=== PATIENT | female | born 1940 | race Caucasian/White ===

== ENCOUNTER → 2017-10-07 13:22 | Outpatient (CLI) | payer MEDICARE, SELFPAY ==
[2017-09-28 09:28] VITALS: BP 120/83; BMI 35.5
--- NOTE | 2017-10-07 13:25 | CT_ITS ---
STUDY: CT ABDOMEN AND PELVIS WITH CONTRAST REASON FOR EXAM: Female, 76 years old. Ovarian cancer follow up. Prior AYLA/BSO, appendectomy, cholecystectomy, Power Port. Prior chemotherapy. RADIATION DOSAGE (If Supplied By Facility): CTDIvol = ( 12.19 ) mGy, DLP = ( 502.58 ) mGycm TECHNIQUE: Transaxial images were obtained from the dome of the diaphragm to the symphysis pubis with oral contrast. 100mL ml of Isovue 300 contrast was administered. Sagittal and coronal images were reconstructed. Individualized dose optimization techniques were used for this CT. COMPARISON: August 05, 2017 FINDINGS: There are atherosclerotic calcifications of visualized coronary arteries. The visualized portions of the heart are within normal limits. Normal liver. There is non-visualization of the gallbladder, which may be secondary to either contraction or a prior cholecystectomy. Normal spleen. Normal pancreas. Normal bilateral adrenal glands. Stable hypodensity of the inferior right kidney. Normal left kidney. Normal visualized stomach. Normal small intestine. There are multiple colonic diverticula consistent with diverticulosis. There is non-visualization of the appendix. There are calcifications of the abdominal aorta and vascular structures. This is consistent for atherosclerotic disease. There is no abdominal aortic aneurysm. Normal inferior vena cava. Subcentimeter mesenteric lymph nodes. Normal urinary bladder. There is absence of the uterus consistent with a prior hysterectomy. Normal abdominal wall. There are degenerative changes of the osseous structures. CT/Abdomen/Pelvis WITH Contrast IMPRESSION: There are no acute findings. There are multiple diverticuli of the colon. There is diverticulosis but no radiographic signs for diverticulitis. Hysterectomy Cholecystectomy Stable right renal cyst. Other findings as above. Electronically Signed: Jasper Phoenix MD at 18:15 EST , Service support ,
--- NOTE | 2017-10-07 13:25 | CT_ITS ---
STUDY: CT CHEST WITHOUT CONTRAST REASON FOR EXAM: Female, 76 years old. Ovarian cancer RADIATION DOSAGE (If Supplied By Facility): CTDIvol = ( 12.19 ) mGy, DLP = ( 502.58 ) mGycm TECHNIQUE: Transaxial imaging was performed without the administration of intravenous contrast material. Individualized dose optimization techniques were used for this CT. COMPARISON: PT Body May 17 2017 1:10pm FINDINGS: There is no pneumothorax. The lungs are normal. There is no demonstrated pleural abnormality. There is a right Port-A-Cath and/or Mediport in place. The tip is in the superior vena cava. There are degenerative changes of the shoulders. There is a right 4.1 mm upper lobe nodule. Series 2 image 31. This appears stable. There are calcifications of the coronary arteries. Normal mediastinum. Normal hilar regions. Normal pulmonary arteries. There is atherosclerotic calcification of the aortic arch with tortuosity and elongation of the aortic arch and descending thoracic aorta. There are multi-level degenerative changes of the thoracic spine. There is no demonstrated abnormality of the visualized upper abdomen. CT/Chest WITH Contrast IMPRESSION: Stable right upper lobe nodule. There are no new findings. Electronically Signed: Jasper Phoenix MD at 17:04 EST , Service support ,
== END ==
PROVIDERS: Family Provider Family Medicine; PCP Family Medicine; Visit Provider Nurse Practitioner Family
DX: C78.6 Secondary malignant neoplasm of retroperitoneum and peritoneum (principal); C80.1 Malignant (primary) neoplasm, unspecified
CPT/HCPCS: 71260; 74177; Q9967

== ENCOUNTER → 2018-01-10 10:04 | Outpatient (CLI) | payer MEDICARE, SELFPAY ==
--- NOTE | 2018-01-10 09:00 | PET_ITS ---
EXAMINATION: FDG PET CT INDICATIONS: A 77-year-old female with reported history of ovarian carcinoma presenting for restaging examination. COMPARISON EXAMINATION: CT of the chest, abdomen and pelvis reports dated 10/07/17, prior FDG PET study dated 05/17/17. NON-INDEX LESION SIZE SUV INTERPRETATION PERSISTENT: Bilateral thoracic corrie-hilum 1.8 (max) compared to 1.9, 05/17/17 Quantitative criteria for viable neoplasm are not fulfilled, no definitive interval change TECHNIQUE: Following the intravenous administration of 15 mCi of F-18 deoxyglucose, multiplanar image acquisitions of the neck, chest, abdomen and pelvis to level of mid thigh, obtained at one hour post radiopharmaceutical administration contemporaneously interpreted with the current CT of the neck, chest, abdomen and pelvis to level of mid thigh, dated 01/10/[address] of the chest, abdomen and pelvis reports dated 10/07/17, prior FDG PET study dated 05/17/17 reveal: FINDINGS: 1. Mild increased glucose metabolism is redefined in the bilateral thoracic perihilum generating a calculated maximum standard uptake value of 1.8 compared to 1.9 defined on the FDG PET study dated 05/17/17 2. Normal physiologic distribution of the radiopharmaceutical is apparent in the hepatic (3.4/2.4) and splenic parenchyma, both renal units, bladder and visualized intestinal tract. There is uniform distribution of the radiopharmaceutical concentration compared on the cerebellar hemispheres and cerebral cortex. Diffuse intestinal tract activity is noted throughout all four quadrants of the abdominal-pelvic retroperitoneum, mesentery consistent with normal physiologic distribution of the radiopharmaceutical. The previously identified hypermetabolic focus noted in the left upper pelvic mesentery defined on the FDG PET study dated 05/17/17 is not apparent on the current examination. Pertinent CT findings are as follows. CHEST: Alct-P-Orfm-MediPort placement is noted. Atherosclerotic calcification is defined in the thoracic aorta without evidence of dilatation, aneurysm formation. Coronary arterial calcification is observed. Right-left axillary soft tissue densities with fatty hilus formation are non-glucose avid. There are no parenchymal densities-nodules noted in the right-left hemithorax manifesting quantitatively significant increased glucose metabolism. ABDOMEN AND PELVIS: Atherosclerotic calcification is defined in the abdominal aorta without evidence of dilatation, aneurysm formation. Pelvic arterial calcification is observed. A small fat-containing inguinal hernia is noted. The gallbladder appears surgically absent. Right-left inguinal soft tissue densities are ametabolic. The uterus is not identified. SKELETAL: Degenerative changes defined in the cervical, thoracic and lumbar spine demonstrate no evidence for glucose hypermetabolism. Diffuse demineralization is noted throughout the axial skeletal structures. PET/PET/CT Tumor Base -Thigh Subs IMPRESSION: 1. NEGATIVE EXAMINATION. There is no definitive quantitative scintigraphic evidence of recurrent-metastatic viable neoplasm. 2. There is interim metabolic resolution of the previously identified upper pelvic mesenteric hypermetabolic focus. 3. Persistent increased glucose concentration noted in the bilateral thoracic perihilum does not fulfill quantitative criteria for viable neoplasm. (Charli et al, Journal of Clinical Oncology 16:2142, 1998). 4. Overall, compared to the prior FDG PET study dated 05/17/17, there is current absence of defined viable neoplastic disease with an apparent interim quantitative complete metabolic response relating to the prior defined pelvic mesenteric hypermetabolic focus. Electronic Signature Edwar Owens D.O. Electronically Signed: Edwar Owens DO at 23:21 EDT Tel , Service support ,
== END ==
PROVIDERS: Family Provider Family Medicine; PCP Family Medicine; Visit Provider Nurse Practitioner Family
DX: C78.6 Secondary malignant neoplasm of retroperitoneum and peritoneum (principal); C56.1 Malignant neoplasm of right ovary
CPT/HCPCS: 78815; A9552; A4216

== ENCOUNTER → 2018-06-07 12:46 | Outpatient (CLI) | payer MEDICARE, SELFPAY ==
--- NOTE | 2018-06-07 12:48 | CT_ITS ---
STUDY: CT ABDOMEN AND PELVIS WITH CONTRAST REASON FOR EXAM: Female, 77 years old. Ovarian cancer. RADIATION DOSAGE (If Supplied By Facility): CTDIvol = ( 22 ) mGy, DLP = ( 1105 ) mGycm TECHNIQUE: Transaxial images were obtained from the dome of the diaphragm to the symphysis pubis without oral contrast. 100 ml of Isovue 300 contrast was administered. Sagittal and coronal images were reconstructed. Individualized dose optimization techniques were used for this CT. COMPARISON: PET/CT dated 01/10/2018. CT dated 10/07/2017. FINDINGS: The visualized lung bases are clear. The visualized portions of the heart and pericardium are within normal limits. The patient is status post cholecystectomy. The liver is within normal limits. There are no suspicious hepatic lesions. The spleen is normal in size. The pancreas is within normal limits. The adrenal glands are within normal limits. There are no renal or ureteral stones. There is no hydronephrosis. There are stable cysts in the right kidney. There are no left renal lesions. Normal visualized stomach. There is no bowel obstruction or inflammation. The appendix is not visualized, but there are no findings to suggest acute appendicitis. The aorta is normal in caliber. There is no abdominal or pelvic free air, free fluid, fluid collection or lymphadenopathy. There are stable postsurgical changes from a prior hysterectomy and bilateral oophorectomy. There are no destructive osseous lesions. CT/Abdomen/Pelvis WITH Contrast IMPRESSION: Stable postsurgical changes from a prior hysterectomy and bilateral oophorectomy. No evidence of metastatic or recurrent disease in the abdomen or pelvis. Electronically Signed: Guerrero Noriega, at 19:23 EDT Tel , Service support ,
== END ==
PROVIDERS: Family Provider Nurse Practitioner Family; PCP Nurse Practitioner Family; Referring Provider Internal Medicine Medical Oncology; Visit Provider Internal Medicine Medical Oncology
DX: C56.1 Malignant neoplasm of right ovary (principal)
CPT/HCPCS: 74177; Q9967; A4216

== ENCOUNTER → 2018-09-02 07:38 | Outpatient (CLI) | payer MEDICARE, SELFPAY ==
[2018-07-07 14:56] VITALS: BMI 34.8
[2018-08-30 13:49] VITALS: BMI 35.3
--- NOTE | 2018-09-02 07:40 | CT_ITS ---
STUDY: CT ABDOMEN AND PELVIS WITH CONTRAST REASON FOR EXAM: Female, 77 years old. Elevated C1 levels, history of ovarian cancer with chemotherapy, surgery, AYLA, BSO, gallbladder, appendectomy, heart stents RADIATION DOSAGE (If Supplied By Facility): CTDIvol = ( 17.29 ) mGy, DLP = ( 1718.95 ) mGycm TECHNIQUE: Transaxial 3.75 mm images were obtained from the dome of the diaphragm to the symphysis pubis with oral contrast. 100 ml of Isovue 300 contrast was administered. Sagittal and coronal images were reconstructed. Individualized dose optimization techniques were used for this CT. COMPARISON: PET scan 07/04/2018. CT abdomen and pelvis 06/07/2018. FINDINGS: The visualized lung bases are unremarkable. There is coronary artery calcification. Normal liver. There are surgical clips in the gallbladder fossa consistent with a prior cholecystectomy. Normal spleen. Normal pancreas. Normal bilateral adrenal glands. Stable right renal cysts. Normal left kidney. There is a stable small hiatal hernia. Normal small intestine. Decompressed mid transverse colon to rectum with limited wall assessment due to lack off oral contrast and distention. There are a few stable sigmoid colonic diverticula consistent with diverticulosis. The appendix is not visualized . There is diffuse atherosclerotic calcification of the abdominal aorta, without a demonstrated aneurysm. Normal inferior vena cava. Normal retroperitoneum. Stable mild right ovarian vein insufficiency. Decompressed urinary bladder. Status post hysterectomy and oophorectomy Rectus muscle diastases is stable containing noncompromised small bowel. There are no destructive osseous lesions. CT/Abdomen/Pelvis WITH Contrast IMPRESSION: There is no acute abdomen and pelvic pathology. Stable postsurgical and nonacute changes as above. No evidence of metastatic disease. Electronically Signed: Maude Marquez MD at 6:59 EST , Service support ,
--- NOTE | 2018-09-02 07:40 | CT_ITS ---
STUDY: CT CHEST WITH CONTRAST REASON FOR EXAM: Female, 77 years old. Elevated C1 levels, history of ovarian cancer with chemotherapy, surgery, AYLA, BSO, gallbladder, appendectomy, heart stents RADIATION DOSAGE (If Supplied By Facility): CTDIvol = ( 17.29 ) mGy, DLP = ( 1718.95 ) mGycm TECHNIQUE: Transaxial 2.5 mm was performed following intravenous administration of 100 ml of Isovue 300 contrast material. Multiplanar coronal and sagittal images were reformatted. Individualized dose optimization techniques were used for this CT. COMPARISON: PET scan 07/04/2018. CT chest 05/02/2017. CT chest 03/03/2017. FINDINGS: Right internal jugular venous access port with catheter tip in the superior vena cava. There is an irregular nodular density in the right upper lobe of 0.59 cm image 29 series 6, previously measuring 0.61 cm. Ovoid nodular density in the right middle lobe 0.64 cm image 57 series 6 previously measured 0.62 cm. There are vague groundglass nodules in the peripheral right upper lobe and right lower lobe superior segment which are stable. Previous airspace disease in the right upper lobe has resolved. There is no demonstrated pleural abnormality. There are calcifications of the coronary arteries. There is a cardiac stent. There is no pericardial fluid. Normal mediastinum. Normal hilar regions. Normal enhanced pulmonary arteries. Normal aorta arch and descending thoracic aorta. There are multi-level degenerative changes of the thoracic spine and bilateral shoulder joints. There is no demonstrated abnormality of the visualized upper abdomen. CT/Chest WITH Contrast IMPRESSION: Nodular densities as outlined above are stable since 02/2017. No lung masses are other nodules detected. Previously seen right upper lobe airspace disease has resolved. No signs of acute airspace disease or metastatic disease. Electronically Signed: Maude Marquez MD at 5:03 EST , Service support ,
== END ==
PROVIDERS: Family Provider Nurse Practitioner Family; PCP Nurse Practitioner Family; Referring Provider Internal Medicine Medical Oncology; Visit Provider Internal Medicine Medical Oncology
DX: C56.9 Malignant neoplasm of unspecified ovary (principal); R97.8 Other abnormal tumor markers
CPT/HCPCS: 71260; 74177; Q9967; A4216

== ENCOUNTER → 2018-09-09 08:47 | Outpatient (CLI) | payer MEDICARE, SELFPAY ==
[2018-07-07 14:56] VITALS: BMI 34.8
[2018-08-30 13:49] VITALS: BMI 35.3
--- NOTE | 2018-09-09 08:48 | NM_ITS ---
CLINICAL: 77-year-old female with reported history of ovarian carcinoma. WHOLE BODY 99m Tc MDP RADIONUCLIDE BONE SCINTIGRAPHY COMPARISON: FDG PET/CT study report 07/04/2018, CT of the chest, abdomen and pelvis reports 09/02/2018 FINDINGS: Following the intravenous administration of 26.8 mCi of 99m Tc MDP, whole body bone images reveal: 1. Increased radiopharmaceutical concentration is defined in the mid cervical spine posteriorly on the left, right posterior and midline sacrum, right sacroiliac joint, the visualized left wrist, acromioclavicular compartments of both shoulders, sternoclavicular compartment of the right shoulder, bilateral knees, ankles bilaterally, the right midfoot. 2. The remaining skeletal structures are scintigraphically unremarkable with the bilateral renal images and urinary bladder activity identified. Calcification of the bilateral costochondral junctions is defined. 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 NM/Bone Scan Whole Body IMPRESSION: 1. The increase in radiopharmaceutical concentration identified in the cervical spine and sacrum, right sacroiliac joint, left wrist, knees and shoulders bilaterally, the right-left ankles and right midfoot is most consistent with degenerative arthritis. 2. There is no definitive typical scintigraphic evidence of diffuse axial skeletal metastatic disease on the current examination. Electronically Signed: Edwar Owens DO at 22:25 EST Tel , Service support ,
--- OUTSIDE RECORDS SUMMARY | 2018-11-13 15:51 | XMS RPT_ITS ---
:1940 Author Organization OHIP Support Name Relationship Address Phone KARISHMA ROSARIO Unavailable Unavailable + JENNIFER ALEXANDER Unavailable [address] + [place] [address] R Unavailable Unavailable Unavailable RICKY ROSARIOA Unavailable Unavailable + JENNIFER ALEXANDER Unavailable [address] + [place] [address] R Unavailable Unavailable Unavailable ABRAHAM, KARISHMA Unavailable Unavailable + JENNIFER ALEXANDER Unavailable [address] + [place] [address] R Unavailable Unavailable Unavailable ABRAHAM, KARISHMA Unavailable [address] + [place] [address] JENNIFER ALEXANDER Unavailable [address] + [place] [address] R Unavailable Unavailable Unavailable ABRAHAM, KARISHMA Unavailable [address] + [place] [address] JENNIFER ALEXANDER Unavailable [address] + [place] [address] R Unavailable Unavailable Unavailable ABRAHAM, KARISHMA Unavailable [address] + [place] [address] JENNIFER ALEXANDER Unavailable [address] + [place] [address] R Unavailable Unavailable Unavailable ABRAHAM, KARISHMA Unavailable [address] + [place] [address] JENNIFRE ALEXANDER Unavailable [address] + [place] [address] R Unavailable Unavailable Unavailable ABRAHAM, KARISHMA Unavailable [address] + [place] [address] JENNIFER ALEXANDER Unavailable [address] + [place] [address] R Unavailable Unavailable Unavailable LEPLEY, KARISHMA Unavailable [address] + [place] [address] JENNIFER ALEXANDER Unavailable [address] + [place] [address] R Unavailable Unavailable Unavailable LEPLEY, KARISHMA Unavailable [address] + [place] [address] JENNIFER ALEXANDER Unavailable [address] + [place] [address] R Unavailable Unavailable Unavailable LEPLEY, KARISHMA Unavailable [address] + [place] [address] JENNIFER ALEXANDER Unavailable [address] + [place] [address] R Unavailable Unavailable Unavailable LEPLEY, KARISHMA Unavailable [address] + [place] [address] JENNIFER ALEXANDER Unavailable [address] + [place] [address] R Unavailable Unavailable Unavailable LEPLEY, KARISHMA Unavailable [address] [phone] [place] [address] JENNIFER ALEXANDER Unavailable [address] [phone] [place] [address] R Unavailable Unavailable Unavailable LEPLEY, KARISHMA Unavailable [address] + [place] [address] JENNIFER ALEXANDER Unavailable [address] + [place] [address] R Unavailable Unavailable Unavailable LEPLEY, KARISHMA Unavailable [address] [phone] [place] [address] JENNIFER ALEXANDER Unavailable [address] [phone] [place] [address] R Unavailable Unavailable Unavailable LEPLEY, KARISHMA Unavailable [address] [phone] [place] [address] JENNIFER ALEXANDER Unavailable [address] [phone] [place] [address] R Unavailable Unavailable Unavailable LEPLEY, KARISHMA Unavailable [address] [phone] [place] [address] JENNIFER ALEXANDER Unavailable [address] [phone] [place] [address] R Unavailable Unavailable Unavailable LEPLEY, KARISHMA Unavailable [address] [phone] [place] [address] JENNIFER ALEXANDER Unavailable [address] [phone] [place] [address] R Unavailable Unavailable Unavailable LEPLEY, KARISHMA Unavailable [address] [phone] [place] [address] JENNIFER ALEXANDER Unavailable [address] [phone] [place] [address] R Unavailable Unavailable Unavailable LEPLEY, KARISHMA Unavailable [address] + [place] [address] LEPBIPIN, KARISHMA Unavailable [address] + [place] [address] ALESIA JENNIFER Unavailable [address] + [place] [address] LEPLEY, KARISHMA Unavailable [address] [phone] [place] . ALESIA JENNIFER Unavailable [address] [phone] [place] [address] R Unavailable Unavailable Unavailable LEPLEY, KARISHMA Unavailable [address] [phone] [place] . ALESIA JENNIFER Unavailable [address] [phone] [place] [address] R Unavailable Unavailable Unavailable LEPLEY, KARISHMA Unavailable [address] [phone]~330-4 [place] . ALESIALOCY Unavailable [address] [phone] [place] [address] R Unavailable Unavailable Unavailable LEPLEY, KARISHMA Unavailable [address] [phone] [place] . ALESIA JENNIFER Unavailable [address] [phone] [place] [address] R Unavailable Unavailable Unavailable Care Team Providers Name Role Phone BOO MORENO, ABEL Bland Attending Unavailable ABEL HADDAD MD Primary Care Unavailable Ilan Berg Attending Unavailable Xiao, Ned Referring Unavailable [facility] Primary Care Unavailable Prah, Ilan Consulting Unavailable Prah, Ilan Attending Unavailable Prah, Ilan Referring [facility]available Prah, Ilan Attending Unavailable Prah, Ilan Referring Unavailable Lorson, Matador Primary Care Unavailable Prah, Ilan Attending Unavailable Xiao, Ned Referring Unavailable [facility] Primary Care Unavailable Prah, Ilan Consulting Unavailable Prah, Ilan Attending Unavailable Xiao, Ned Referring Unavailable [facility] Primary Care Unavailable Patrick, Elly Attending Unavailable Boo, Abel Primary Care Unavailable Prah, Ilan Consulting Unavailable Patrick, Elly Attending Unavailable Patrick, Elly Referring Unavailable Boo, Abel Primary Care Unavailable Prah, Ilan Attending Unavailable Boo, Abel Primary Care Unavailable Prah, Ilan Consulting Unavailable Prah, Ilan Attending Unavailable Xiao, Ned Referring Unavailable Boo, Abel Primary Care Unavailable Prah, Ilan Consulting Unavailable Prah, Ilan Attending Unavailable Xiao, Ned Referring Unavailable Boo, Abel Primary Care Unavailable Prah, Ilan Consulting Unavailable Patrick, Elly Attending Unavailable Xiao, Ned Referring Unavailable [facility] Unavailable Prah, Ilan Consulting Unavailable Patrick, Elly Attending Unavailable Boo, Abel Primary Care Unavailable Patrick, Elly Attending Unavailable [facility] Unavailable Prah, Ilan Attending Unavailable Xiao, Ned Referring Unavailable Boo, Abel Primary Care Unavailable Prah, Ilan Consulting Unavailable Prah, Ilan Attending Unavailable Xiao, Ned Referring Unavailable Boo, Abel Primary Care Unavailable Prah, Ilan Consulting Unavailable Patrick, Elly Attending Unavailable Prah, Ilan Attending Unavailable Xiao, Ned Referring Unavailable Boo, Abel Primary Care Unavailable Prah, Ilan Consulting Unavailable Prah, Ilan Attending Unavailable Xiao, Ned Referring Unavailable Boo, Abel Primary Care Unavailable Prah, Ilan Consulting Unavailable Prah, Ilan Attending Unavailable Xiao, Ned Referring Unavailable Boo, Abel Primary Care Unavailable Prah, Ilan Consulting Unavailable Prah, Ilan Attending Unavailable Xiao, Ned Referring Unavailable Boo, Abel Primary Care Unavailable Prah, Ilan Consulting Unavailable Prah, Ilan Attending Unavailable Prah, Ilan Referring Unavailable Lorson, Matador Primary Care Unavailable Prah, Ilan Attending Unavailable Xiao, Ned [facility]erring [facility] Unavailable Prah, Ilan Consulting Unavailable Prah, Ilan Attending Unavailable Xiao, Ned Referring [facility] Unavailable Prah, Ilan Consulting Unavailable PROBLEMS PROBLEMS DATE TYPE CONDITION / CODE ATTENDING STATUS SOURCE 09/13/2018 Unknown C56.1 - Malignant Prah, Ilan Contreras neoplasm of right Community ovary / C56.1(ICD-10) Hospital Repository 09/13/2018 Unknown 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, 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 and Hospital peritoneum / Repository C78.6(ICD-10) 09/13/2018 Unknown C80.1 - Malignant PraIlan villavicencio (primary) neoplasm, [facility] unspecified / Hospital C80.1(ICD-10) Repository 06/26/2018 Unknown R97.1 - Elevated Prah, Ilan Contreras cancer antigen 125 Community [CA 125] / Hospital R97.1(ICD-10) Repository 04/29/2018 Unknown C79.60 - Secondary Prah, Ilan Contreras malignant neoplasm of [facility] unspecified ovary / Hospital C79.60(ICD-10) Repository 04/29/2018 Unknown R11.0 - Nausea / Prah, Ilan Contreras R11.0(ICD-10) [facility] Hospital Repository 02/03/2018 Unknown Z79.899 - Other long PrahIlan term (current) drug [facility] therapy / Hospital Z79.899(ICD-10) Repository PROCEDURES PROCEDURES No Procedure Records FoundRESULTS RESULTS ONCOLOGY VISIT REPORT Observed: 09/13/2018 Status: F Source: [place] 4:06 PM [facility] REPOS[facility] Medical Oncology [address] [place] [address] OFFICE VISIT Date of Service: 09/13/18 1416 MR#: [id number] Acct: [id number] Name: MULU ALEXANDER Rep #: [id number] : 1940 From: Ilan Berg MD Age/Sex: 77/F Location: OMD Status: Signed Subjective - Date of Service Date of Service:: 09/13/18 - Chief Complaint For Zejula therapy. - History of Present Illness Ms. Mulu Alexander is a 77-year-old woman who presented with abdominal pain. CT scan of the abdomen and pelvis on 05/26/2016 showed ascites, omental caking, bulky cervix, and an endometrial prominence suggestive of a gynecologic malignancy. Transvaginal ultrasound confirmed these findings. The patient was seen by Dr. Xiao. 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 CA125 on 07/14/2016 was 64,000. The patient had a PET CT on 07/15/2016, which showed hypermetabolic activity in the abdominopelvic mesentery, saundra hepatis and hepatic capsule with a single focus within the mid-abdominal retroperitoneum, as well as an incidental finding of pleural effusion. She received neoadjuvant chemotherapy with carboplatin and dose- dense Taxol x 3 cycles from 08/03/2016 to 09/28/2016. Underwent AYLA-BSO with debulking per Dr. Xiao on 10/20/2016, complicated by ileus. She received adjuvant Carboplatin and Dose Dense Taxol x 3 cycles from 12/08/2016 to 02/09/2017. She was seen at [facility], had a CTA scan to rule out PE on 04/14/2017 and was found a splenic mass. CA125 was 343 on 05/05/2017. CT c/a/p on 05/11/2017 was negative, PET/CT on 05/17/2017 showed solitary hypermetabolic activity in L paramedian upper pelvic area. She was seen by Dr. Xiao, chemotherapy was suggested. She started chemotherapy with Doxil 50mg/m2 on 06/22/2017. She had a CT after the 2nd cycle which showed stable disease. Developed pain and redness of the palms and mouth ulcers subsequent to cycle 2. Cycle 3 delayed by 2 weeks, administered 08/24/17 with 20% dose attenuation. CA125 on 10/12/2017 was 51. Completed 6 cycles Doxil on 11/23/17. PET/CT on 01/10/2018 showed no hypermetabolic activity. CA125 on 01/27/2018 was 38.8. She started Zejula 300mg on 01/23/2018, had general weakness with nausea so decreased it to 200mg. She had persistent nausea so Zejula was decreased to 100mg PO daily on 04/28/2018. CA125 started rising, had CT a/p done on 06/07/2018 which was negative. PET/CT on 07/04/2018 showed no hypermetabolic activities suggestive of metastatic disease. She remained on Zejula and comes for follow up after CT and bone scan. Feels better, no nausea. - Past Medical/Social History Past Medical History Past Medical History: Anxiety,Asthma,Congestive heart failure,GERD, Hypertension,Pneumonia Cancer: Ovarian cancer Past Surgical History Surgical: Cholecystectomy,Hysterectomy,Port placement Other Surgical History: cardiac stents x2 Family History Paternal Past Medical History: Heart disease,Tuberculosis Maternal Past Medical History: Diabetes mellitus,Heart disease,Hypertension Social History Social History: No changes Smoking Status Never smoker Review of Systems Constitutional:: Denies: Fever, Sweats, Weight loss, Appetite change, Chills Cardiovascular:: Denies: Chest pain, Palpitations, Dyspnea on exertion, Orthopnea, PND, Shortness of breath Respiratory: Denies: Cough, Hemoptysis, Shortness of Breath, Wheezing Gastrointestinal:: Denies: Abdominal pain, Nausea, Vomiting, Diarrhea, Constipation, Hematochezia Genitourinary: Denies: Dysuria, Hematuria, 15, Flank pain Musculoskeletal:: Denies: Back pain, Myalgia, Arthralgia Skin: Denies: Rash, Skin Changes, Wounds Neurological:: Denies: Headache, Dizziness, Visual changes, Tinnitus, Hearing loss Psychiatric: Denies: Anxiety, Depression, Homicidal Ideations, Suicidal Ideations Vital Signs Height 5 ft 4 in Weight: 93.894 kg Weight in Pounds 207.0 lbs Pulse Ox 97 - Physical Exam General: Alert, Oriented x3, No apparent distress Diagnostic Data: Diagnostic Data PET, CT Tumor Imaging 07/04/18 12:00 IMPRESSION: 1. NEGATIVE EXAMINATION. There is no definitive quantitative scintigraphic evidence of recurrent-viable neoplasm. 2. Mild increased glucose concentration newly defined in the left mid clavicle does not fulfill quantitative criteria for viable neoplasm. (Tarun et al, Clinical Nuclear Medicine 29:161, 2004). 3. Overall, compared to the prior FDG PET study report dated 01/10/18, there is current and continued absence of defined viable neoplastic disease. Electronic Signature Edwar Owens D.O. Electronically Signed: Edwar Owens DO at 22:34 EST Tel , Service support , 09/09/2018 Bone scan reviewed. NM/Bone Scan Whole Body IMPRESSION: 1. The increase in radiopharmaceutical concentration identified in the cervical spine and sacrum, right sacroiliac joint, left wrist, knees and shoulders bilaterally, the right-left ankles and right midfoot is most consistent with degenerative arthritis. 2. There is no definitive typical scintigraphic evidence of diffuse axial skeletal metastatic disease on the current examination. Electronically Signed: Edwar Owens, DO at 22:25 EST 09/02/2018 CT reviewed, stable small lung nodules, no abdominal lesions. Assessment and Plan Recurrent ovarian cancer with peritoneal metastases, finished Doxil on 11/23/2017. Started Zejula on 01/23/2018, now on 100mg because of persistent nausea. Increasing CA125, 127 on 08/29/2018. CT c/a/p and bone scan in Aug 2018 show no metastatic disease. Pt thinks the increase in CA125 is due to Zejula and so does not want to continue. Plan is to stop Zejula and do observation. RTC 4-6 wks with CA125. Medications: Prescriptions This Visit Medication Instructions Recorded Montelukast [Singulair] 10 mg PO DAILY PRN 05/05/17 Prochlorperazine Maleate 10 mg PO Q6H PRN PRN #30 tablet 06/22/17 Primary Care Provider: Abel Haddad Referring Provider: - Problem List (1) Ovarian cancer Status: Chronic Qualifiers: Laterality: unspecified laterality Qualified Code(s): C56.9 - Malignant neoplasm of unspecified ovary Code Visit Office Visits / Consults: [id number] OV L4 Est 09/13/18 1606 <Electronically signed by Ilan Berg MD> Date Ilan Berg MD Cosigner Signature: Date (if applicable) CC: BONE SCAN WHOLE Observed: 09/09/2018 Status: F Source: [place] BODY 8:48 AM [facility] REPOSITORY [facility] Imaging Services [facility] [place] [address] Bone Scan Whole Body MR#: [id number] Acct: [id number] Name: MULU ALEXANDER Rep #: [id number] : 1940 F 77 From: Edwar Owens DO PCP: RAUL Escamilla Status: REG CLI Study: Bone Scan Whole Body Date of Exam: 09/09/18 Exam# [id number] Ordering Dr: Ilan Berg MD CLINICAL: 77-year-old female with reported history of ovarian carcinoma. WHOLE BODY 99m Tc MDP RADIONUCLIDE BONE SCINTIGRAPHY COMPARISON: FDG PET/CT study report 07/04/2018, CT of the chest, abdomen and pelvis reports 09/02/2018 FINDINGS: Following the intravenous administration of 26.8 mCi of 99m Tc MDP, whole body bone images reveal: 1. Increased radiopharmaceutical concentration is defined in the mid cervical spine posteriorly on the left, right posterior and midline sacrum, right sacroiliac joint, the visualized left wrist, acromioclavicular compartments of both shoulders, sternoclavicular compartment of the right shoulder, bilateral knees, ankles bilaterally, the right midfoot. 2. The remaining skeletal structures are scintigraphically unremarkable with the bilateral renal images and urinary bladder activity identified. Calcification of the bilateral costochondral junctions is defined. 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 NM/Bone Scan Whole Body IMPRESSION: 1. The increase in radiopharmaceutical concentration identified in the cervical spine and sacrum, right sacroiliac joint, left wrist, knees and shoulders bilaterally, the right-left ankles and right midfoot is most consistent with degenerative arthritis. 2. There is no definitive typical scintigraphic evidence of diffuse axial skeletal metastatic disease on the current examination. Electronically Signed: Edwar Owens DO at 22:25 EST Tel , Service support , CC: RAUL Carranza; Ilan Berg MD [employer] Operations Engineer: Signed CANCER ANTIGEN 125 Collected: 09/09/2018 Status: F Source: [place] 8:34 AM [facility] REPOSITORY Order Comment: Reason for Laboratory Test . TYPE CODE TESTS RESULT OUT OF RANGE REFERENCE UNITS LAB L3100.5000 0.0-38.1 U/mL High CA125 125.8 2303 Result Comment: [facility] Electrochemiluminescence Immunoassay (ECLIA) Values obtained with different assay methods or kits cannot be used interchangeably. Results cannot be interpreted as absolute evidence of the presence or absence of malignant disease. Performed at: - [facility] [id number] [place] Boss: Christiano Irvin PhD, Phone: [phone] Performed By: #### L3100.5000 #### [facility] (refer to report for specific site) refer to report for address and phone number CHEST WITH CONTRAST Observed: 09/02/2018 Status: F Source: [place] 7:41 AM [facility] REPOSITORY [facility] Imaging Services [address] [place] [address] Chest WITH Contrast MR#: [id number] Acct: [id number] Name: UMLU ALEXANDER Rep #: [id number] : 1940 F 77 From: Maude Marquez MD PCP: RAUL Escamilla Status: REG CLI Study: Chest WITH Contrast Date of Exam: 09/02/18 Exam# [id number] Ordering Dr: Ilan Berg MD STUDY: CT CHEST WITH CONTRAST REASON FOR EXAM: Female, 77 years old. Elevated C1 levels, history of ovarian cancer with chemotherapy, surgery, AYLA, BSO, gallbladder, appendectomy, heart stents RADIATION DOSAGE (If Supplied By Facility): CTDIvol = ( 17.29 ) mGy, DLP = ( 1718.95 ) mGycm TECHNIQUE: Transaxial 2.5 mm was performed following intravenous administration of 100 ml of Isovue 300 contrast material. Multiplanar coronal and sagittal images were reformatted. Individualized dose optimization techniques were used for this CT. COMPARISON: PET scan 07/04/2018. CT chest 05/02/2017. CT chest 03/03/2017. FINDINGS: Right internal jugular venous access port with catheter tip in the superior vena cava. There is an irregular nodular density in the right upper lobe of 0.59 cm image 29 series 6, previously measuring 0.61 cm. Ovoid nodular density in the right middle lobe 0.64 cm image 57 series 6 previously measured 0.62 cm. There are vague groundglass nodules in the peripheral right upper lobe and right lower lobe superior segment which are stable. Previous airspace disease in the right upper lobe has resolved. There is no demonstrated pleural abnormality. There are calcifications of the coronary arteries. There is a cardiac stent. There is no pericardial fluid. Normal mediastinum. Normal hilar regions. Normal enhanced pulmonary arteries. Normal aorta arch and descending thoracic aorta. There are multi-level degenerative changes of the thoracic spine and bilateral shoulder joints. There is no demonstrated abnormality of the visualized upper abdomen. CT/Chest WITH Contrast IMPRESSION: Nodular densities as outlined above are stable since 02/2017. No lung masses are other nodules detected. Previously seen right upper lobe airspace disease has resolved. No signs of acute airspace disease or metastatic disease. Electronically Signed: Maude Marquez MD at 5:03 EST , Service support , CC: RAUL Carranza; Ilan Berg MD [employer] Operations Engineer: Signed ABDOMEN/PELVIS WITH Observed: 09/02/2018 Status: F Source: [place] CONTRAST 7:41 AM [facility] REPOS[facility]ORY [facility] Imaging Services [address] [place] [address] Abdomen/Pelvis WITH Contrast MR#: [id number] Acct: [id number] Name: MULU ALEXANDER Rep #: [id number] : 1940 F 77 From: Maude Marquez MD PCP: RAUL Escamilla Status: REG CLI Study: Abdomen/Pelvis WITH Contrast Date of Exam: 09/02/18 Exam# [id number] Ordering Dr: Ilan Berg MD STUDY: CT ABDOMEN AND PELVIS WITH CONTRAST REASON FOR EXAM: Female, 77 years old. Elevated C1 levels, history of ovarian cancer with chemotherapy, surgery, AYLA, BSO, gallbladder, appendectomy, heart stents RADIATION DOSAGE (If Supplied By Facility): CTDIvol = ( 17.29 ) mGy, DLP = ( 1718.95 ) mGycm TECHNIQUE: Transaxial 3.75 mm images were obtained from the dome of the diaphragm to the symphysis pubis with oral contrast. 100 ml of Isovue 300 contrast was administered. Sagittal and coronal images were reconstructed. Individualized dose optimization techniques were used for this CT. COMPARISON: PET scan 07/04/2018. CT abdomen and pelvis 06/07/2018. FINDINGS: The visualized lung bases are unremarkable. There is coronary artery calcification. Normal liver. There are surgical clips in the gallbladder fossa consistent with a prior cholecystectomy. Normal spleen. Normal pancreas. Normal bilateral adrenal glands. Stable right renal cysts. Normal left kidney. There is a stable small hiatal hernia. Normal small intestine. Decompressed mid transverse colon to rectum with limited wall assessment due to lack off oral contrast and distention. There are a few stable sigmoid colonic diverticula consistent with diverticulosis. The appendix is not visualized . There is diffuse atherosclerotic calcification of the abdominal aorta, without a demonstrated aneurysm. Normal inferior vena cava. Normal retroperitoneum. Stable mild right ovarian vein insufficiency. Decompressed urinary bladder. Status post hysterectomy and oophorectomy Rectus muscle diastases is stable containing noncompromised small bowel. There are no destructive osseous lesions. CT/Abdomen/Pelvis WITH Contrast IMPRESSION: There is no acute abdomen and pelvic pathology. Stable postsurgical and nonacute changes as above. No evidence of metastatic disease. Electronically Signed: Maude Marquez MD at 6:59 EST , Service support , CC: RAUL Carranza; Ilan Berg MD [employer] Operations Engineer: Signed ONCOLOGY VISIT REPORT Observed: 08/30/2018 Status: F Source: [place] 1:31 PM [facility] RE[facility] Medical Oncology [address] [place], [place] [address]d[place] [address] OFFICE VISIT Date of Service: 08/30/18 1319 MR#: [id number] Acct: [id number] Name: MULU ALEXANDER Rep #: [id number] : 1940 From: Ilan Berg MD Age/Sex: 77/F Location: OMD Status: Signed Subjective - Date of Service Date of Service:: 08/30/18 - Chief Complaint For Zejula therapy. - History of Present Illness Ms. Mulu Alexander is a 77-year-old woman who presented with abdominal pain. CT scan of the abdomen and pelvis on 05/26/2016 showed ascites, omental caking, bulky cervix, and an endometrial prominence suggestive of a gynecologic malignancy. Transvaginal ultrasound confirmed these findings. The patient was seen by Dr. Xiao. 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 CA125 on 07/14/2016 was 64,000. The patient had a PET CT on 07/15/2016, which showed hypermetabolic activity in the abdominopelvic mesentery, saundra hepatis and hepatic capsule with a single focus within the mid-abdominal retroperitoneum, as well as an incidental finding of pleural effusion. She received neoadjuvant chemotherapy with carboplatin and dose- dense Taxol x 3 cycles from 08/03/2016 to 09/28/2016. Underwent AYLA-BSO with debulking per Dr. Xiao on 10/20/2016, complicated by ileus. She received adjuvant Carboplatin and Dose Dense Taxol x 3 cycles from 12/08/2016 to 02/09/2017. She was seen at [facility], had a CTA scan to rule out PE on 04/14/2017 and was found a splenic mass. CA125 was 343 on 05/05/2017. CT c/a/p on 05/11/2017 was negative, PET/CT on 05/17/2017 showed solitary hypermetabolic activity in L paramedian upper pelvic area. She was seen by Dr. Xiao, chemotherapy was suggested. She started chemotherapy with Doxil 50mg/m2 on 06/22/2017. She had a CT after the 2nd cycle which showed stable disease. Developed pain and redness of the palms and mouth ulcers subsequent to cycle 2. Cycle 3 delayed by 2 weeks, administered 08/24/17 with 20% dose attenuation. CA125 on 10/12/2017 was 51. Completed 6 cycles Doxil on 11/23/17. PET/CT on 01/10/2018 showed no hypermetabolic activity. CA125 on 01/27/2018 was 38.8. She started Zejula 300mg on 01/23/2018, had general weakness with nausea so decreased it to 200mg. She had persistent nausea so Zejula was decreased to 100mg PO daily on 04/28/2018. CA125 started rising, had CT a/p done on 06/07/2018 which was negative. PET/CT on 07/04/2018 showed no hypermetabolic activities suggestive of metastatic disease. She remained on Zejula and comes for follow up. Feels better, no nausea. - Past Medical/Social History Past Medical History Past Medical History: Anxiety,Asthma,Congestive heart failure,GERD, Hypertension,Pneumonia Cancer: Ovarian cancer Past Surgical History Surgical: Cholecystectomy,Hysterectomy,Port placement Other Surgical History: cardiac stents x2 Family History Paternal Past Medical History: Heart disease,Tuberculosis Maternal Past Medical History: Diabetes mellitus,Heart disease,Hypertension Social History Social History: No changes Smoking Status Never smoker Review of Systems Constitutional:: Denies: Fever, Sweats, Weight loss, Appetite change, Chills Cardiovascular:: Denies: Chest pain, Palpitations, Dyspnea on exertion, Orthopnea, PND, Shortness of breath Respiratory: Denies: Cough, Hemoptysis, Shortness of Breath, Wheezing Gastrointestinal:: Denies: Abdominal pain, Nausea, Vomiting, Diarrhea, Constipation, Hematochezia Genitourinary: Denies: Dysuria, Hematuria, 15, Flank pain Musculoskeletal:: Denies: Back pain, Myalgia, Arthralgia Skin: Denies: Rash, Skin Changes, Wounds Neurological:: Denies: Headache, Dizziness, Visual changes, Tinnitus, Hearing loss Psychiatric: Denies: Anxiety, Depression, Homicidal Ideations, Suicidal Ideations Vital Signs Height 5 ft 4 in Weight: 92.079 kg Weight in Pounds 203.0 lbs Pulse Ox 99 - Physical Exam General: Alert, Oriented x3, No apparent distress HEENT: Atraumatic, PERRLA, EOMI, Normocephalic Oropharynx:: Dry mucosa Neck:: Supple, Trachea midline. Negative for: JVD, bilateral Cardiac:: Regular rate, Regular rhythm, Normal S1, Normal S2. Negative for: Murmur Lungs: Clear to auscultation, Excusion symmetrical. Negative for: Rhonchi, Wheezes Abdomen:: Bowel sounds x 4, Soft, Non-tender, Non-distended. Negative for: Hepatosplenomegaly Extremities:: Negative for: Cyanosis, Edema Neurological: Neuro grossly intact Skin:: Negative for: Lesions, Rash, Petechiae, Ecchymosis Psychiatric:: Appropriate affect, Euthymic Lymphatics:: Negative for: Cervical lymphadenopathy, Supraclavicular lymphadenopathy, Axillary lymphadenopathy Laboratory Data: Laboratory Tests Diagnostic Data: Diagnostic Data PET, CT Tumor Imaging 07/04/18 12:00 IMPRESSION: 1. NEGATIVE EXAMINATION. There is no definitive quantitative scintigraphic evidence of recurrent-viable neoplasm. 2. Mild increased glucose concentration newly defined in the left mid clavicle does not fulfill quantitative criteria for viable neoplasm. (Tarun farley al, Clinical Nuclear Medicine 29:161, 2004). 3. Overall, compared to the prior FDG PET study report dated 01/10/18, there is current and continued absence of defined viable neoplastic disease. Electronic Signature Edwar Owens D.O. Electronically Signed: Edwar Owens DO at 22:34 EST Tel , Service support , Assessment and Plan Recurrent ovarian cancer with peritoneal metastases, finished Doxil on 11/23/2017. Started Zejula on 01/23/2018, now on 100mg because of persistent nausea. Increasing CA125, 127 on 08/29/2018. Plan is to continue Zejula to 100mg PO daily. Obtain CT c/a/p and bone scan. RTC 2 wks with CA125. Medications: Prescriptions This Visit Medication Instructions Recorded Montelukast [Singulair] 10 mg PO DAILY PRN 05/05/17 Prochlorperazine Maleate 10 mg PO Q6H PRN PRN #30 tablet 06/22/17 Primary Care Provider: Abel Haddad Referring Provider: - Problem List (1) Ovarian metastasis Status: Chronic Code Visit Office Visits / Consults: [id number] OV L3 Est 08/30/18 1331 <Electronically signed by Ilan Berg MD> Date Ilan Arambulaigner Signature: Date (if applicable) CC: CBC W/DIFF, AUTOMATED Collected: 08/29/2018 Status: F Source: [facility] 2:03 PM [facility] REPOSITORY Order Comment: Reason for Laboratory Test . TYPE CODE TESTS RESULT OUT OF RANGE REFERENCE UNITS LAB L100.1000 4.4-11.0 K/mm3 Normal WBC 6.9 LAB L100.1200 4.2-5.4 M/mm3 Normal RBC 4.36 LAB L100.1300 12.0-15.0 g/dl Normal HGB 13.0 LAB L100.1400 37-47 % Normal HCT 40.1 LAB L100.1500 81-99 fL Normal MCV 92.0 LAB L100.1600 27.0-32.0 pg Normal MCH 29.8 LAB L100.1700 32-36 g/gl Normal MCHC 32.4 LAB L100.1810 11.6-14.6 % Normal RDW CV 13.3 LAB L100.1820 35.1-43.9 fl Normal RDW SD 43.9 LAB L100.1900 150-450 K/mm3 Normal PLT 178 LAB L100.2000 6.2-12.0 fl Normal MPV 11.0 LAB L100.2100 47-70 % Normal NEUT% 66.2 LAB L100.2200 19-41 % Normal LY% 23.8 LAB L100.2300 0-10 % Normal MONO% 7.3 LAB L100.2400 0-5 % Normal EO% 1.9 LAB L100.2500 0-1 % Normal BASO% 0.7 LAB L100.2550 0.0-0.9 % Normal IM GRAN % 0.100 Result Comment: IG% - Immature Granulocytes (promyelocytes, myelocytes and metamyelocytes) > 1% indicates that a LEFT SHIFT is Present. LAB L100.2620 2.0-7.7 X10 3/uL Normal Absolute Neut 4.6 LAB L100.2720 0.83-4.51 X10 3/ul Normal Absolute Lymph 1.64 Performed By: #### L100.0100 #### [facility] [address] [place], [address] COMPREHENSIVE METABOLIC Collected: 08/29/2018 Status: F Source: DIANE [facility] 2:03 PM [facility] REPOSITORY Order Comment: Reason for Laboratory Test . TYPE CODE TESTS RESULT OUT OF RANGE REFERENCE UNITS LAB L501.0100 74-106 mg/dL High GLU 142 Result Comment: Fasting Glucose result greater than or equal to 126 mg/dL suggests DIABETES MELLITUS per A.D.A. criteria. Please note revised GLUCOSE reference range effective 2017. LAB L501.1000 7-18 mg/dL Normal BUN 13 LAB L501.1100 0.55-1.02 mg/dL Normal CREAT,SERUM 0.92 Result Comment: The validity of the calculated GFR AND GFRAA in patients over 70 years has not been determined. Clinical correlation is essential. LAB L501.1110 >60 mL/min Normal EST GFR 63 Result Comment: Non- GFR Calc LAB L501.1115 >60 mL/min Normal EST GFR - AA 76 Result Comment: GFR Calc LAB L501.1255 ml/min Normal Estimated CRCL 45.62 LAB L501.1300 10-20 RATIO Normal BUN/CRE 14.1 LAB L501.1500 6.4-8. g/dL Normal 2 T PROT 6.4 LAB L501.1800 3.2-5. g/dL Normal 0 ALB 3.4 LAB L501.1950 2.2-4. g/dL Normal 2 GLOB 3.0 LAB L501.2000 0.9-2. RATIO Normal 4 A/G 1.1 LAB L501.2200 8.5-10 mg/dL Normal .1 CA 8.8 LAB L501.4100 15-37 U/L Normal AST 15 LAB L501.4305 45-117 U/L High ALK P 188 LAB L501.4405 13-56 U/L Normal ALT 24 LAB L501.4600 0.20-1 mg/dL Normal .00 T BILI 0.30 LAB L501.5300 136-14 mmol/L Normal 5 NA 139 LAB L501.5600 3.5-5. mmol/L Normal 1 K 3.9 LAB L501.5900 98-107 mmol/L Normal CL 104 LAB L501.6100 21.0-3 mmol/L Normal 2.0 CO2 28.0 LAB L501.6200 5-15 Normal GAP 7 Performed By: #### L500.4050 #### [facility] [address] [place], [address] CANCER ANTIGEN 125 Collected: 08/29/2018 Status: F Source: [facility] [place] 2:03 PM [facility] REPOSITORY Order Comment: Reason for Laboratory Test . TYPE CODE TESTS RESULT OUT OF RANGE REFERENCE UNITS LAB L3100.5000 0.0-38.1 U/mL High CA125 127.8 2303 Result Comment: [employer] ECLIA methodology Performed at: [facility] [address] [id number] [place] Boss: Christiano Irvin PhD, Phone: [phone] Performed By: #### L3100.5000 #### [facility] (refer to report for specific site) refer to report for address and phone number ONCOLOGY VISIT REPORT Observed: 07/07/2018 Status: F Source: [place] [place] 4:26 PM [facility] REPOSITORY [facility] [place] [address] OFFICE VISIT Date of Service: 07/07/18 1508 MR#: [id number] Acct: [id number] Name: MULU ALEXANDER Rep #: [id number] : 1940 From: Ilan Berg MD Age/Sex: 77/F Location: OMD Status: Signed Subjective - Date of Service Date of Service:: 07/07/18 - Chief Complaint For Zejula therapy. - History of Present Illness Ms. Mulu Alexander is a 77-year-old woman who presented with abdominal pain. CT scan of the abdomen and pelvis on 05/26/2016 showed ascites, omental caking, bulky cervix, and an endometrial prominence suggestive of a gynecologic malignancy. Transvaginal ultrasound confirmed these findings. The patient was seen by Dr. Xiao. 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 CA125 on 07/14/2016 was 64,000. The patient had a PET CT on 07/15/2016, which showed hypermetabolic activity in the abdominopelvic mesentery, saundra hepatis and hepatic capsule with a single focus within the mid-abdominal retroperitoneum, as well as an incidental finding of pleural effusion. She received neoadjuvant chemotherapy with carboplatin and dose- dense Taxol x 3 cycles from 08/03/2016 to 09/28/2016. Underwent AYLA-BSO with debulking per Dr. Xiao on 10/20/2016, complicated by ileus. She received adjuvant Carboplatin and Dose Dense Taxol x 3 cycles from 12/08/2016 to 02/09/2017. She was seen at [facility], had a CTA scan to rule out PE on 04/14/2017 and was found a splenic mass. CA125 was 343 on 05/05/2017. CT c/a/p on 05/11/2017 was negative, PET/CT on 05/17/2017 showed solitary hypermetabolic activity in L paramedian upper pelvic area. She was seen by Dr. Xiao, chemotherapy was suggested. She started chemotherapy with Doxil 50mg/m2 on 06/22/2017. She had a CT after the 2nd cycle which showed stable disease. Developed pain and redness of the palms and mouth ulcers subsequent to cycle 2. Cycle 3 delayed by 2 weeks, administered 08/24/17 with 20% dose attenuation. CA125 on 10/12/2017 was 51. Completed 6 cycles Doxil on 11/23/17. PET/CT on 01/10/2018 showed no hypermetabolic activity. CA125 on 01/27/2018 was 38.8. She started Zejula 300mg on 01/23/2018, had general weakness with nausea so decreased it to 200mg. She had persistent nausea so Zejula was decreased to 100mg PO daily on 04/28/2018. CA125 started rising, had CT a/p done on 06/07/2018 which was negative. PET/CT was ordered and comes for follow up. Feels better, no nausea. - Past Medical/Social History Past Medical History Past Medical History: Anxiety,Asthma,Congestive heart failure,GERD, Hypertension,Pneumonia Cancer: Ovarian cancer Past Surgical History Surgical: Cholecystectomy,Hysterectomy,Port placement Other Surgical History: cardiac stents x2 Family History Paternal Past Medical History: Heart disease,Tuberculosis Maternal Past Medical History: Diabetes mellitus,Heart disease,Hypertension Social History Social History: No changes Smoking Status Never smoker Vital Signs Height 5 ft 4 in Weight: 92.079 kg Weight in Pounds 203.0 lbs Pulse Ox 99 - Physical Exam General: Alert, Oriented x3, No apparent distress Laboratory Data: Laboratory Tests CA 125 Antigen 38.8 H 41.2 H 41.1 H CA 125 Antigen 54.6 H 69.3 H Diagnostic Data: Diagnostic Data PET, CT Tumor Imaging 07/04/18 12:00 IMPRESSION: 1. NEGATIVE EXAMINATION. There is no definitive quantitative scintigraphic evidence of recurrent-viable neoplasm. 2. Mild increased glucose concentration newly defined in the left mid clavicle does not fulfill quantitative criteria for viable neoplasm. (Tarun farley al, Clinical Nuclear Medicine 29:161, 2004). 3. Overall, compared to the prior FDG PET study report dated 01/10/18, there is current and continued absence of defined viable neoplastic disease. Electronic Signature Edwar Owens D.O. Electronically Signed: Edwar Owens DO at 22:34 EST Tel , Service support , Assessment and Plan Recurrent ovarian cancer with peritoneal metastases, finished Doxil on 11/23/2017. Started Zejula on 01/23/2018, now on 100mg. Increasing CA125 with negative PET/CT. Plan is to continue Zejula to 100mg PO daily. RTC 2 months with CBC/CMP/CA125. Medications: Prescriptions This Visit Medication Instructions Recorded Montelukast [Singulair] 10 mg PO DAILY PRN 05/05/17 Prochlorperazine Maleate 10 mg PO Q6H PRN PRN #30 tablet 06/22/17 Primary Care Provider: Abel Haddad Referring Provider: - Problem List (1) Ovarian metastasis Status: Chronic Code Visit Office Visits / Consults: 14566 OV L4 Est 07/07/18 1626 <Electronically signed by Ilan Berg MD> Date Ilan Berg MD Cosigner Signature: Date (if applicable) CC: PET/CT TUMOR BASE Observed: 07/04/2018 Status: F Source: DIANE -THIGH SUBS 12:05 PM [facility] REPOSITORY [facility] Imaging Services [address] [place] [address] PET/CT Tumor Base -Thigh Subs MR#: [id number] Acct: [id number] Name: MULU ALEXANDER Rep #: [id number] : 1940 F 77 From: Edwar Owens DO PCP: Mecca Murphy Status: REG RCR Study: PET/CT Tumor Base -Thigh Subs Date of Exam: 07/04/18 Exam# [id number] Ordering Dr: Ilan Berg MD EXAMINATION: FDG PET CT INDICATIONS: A 77-year-old female with reported history of ovarian carcinoma presenting for restaging examination. COMPARISON EXAMINATION: Previous FDG PET study report dated 01/10/18, CT of the abdomen and pelvis reports dated 06/07/18. NON-INDEX LESION SIZE SUV INTERPRETATION NEW: Left mid clavicle 1.5 Quantitative criteria for viable neoplasm are not fulfilled TECHNIQUE: Following the intravenous administration of 15 mCi of F-18 deoxyglucose, multiplanar image acquisitions of the neck, chest, abdomen and pelvis to level of mid thigh, obtained at one hour post radiopharmaceutical administration contemporaneously interpreted with the current CT of the neck, chest, abdomen and pelvis to level of mid thigh, dated 07/04/18 via coregistration and previous FDG PET study report dated 01/10/18, CT of the abdomen and pelvis reports dated 06/07/18 reveal: FINDINGS: 1. There is no quantitative scintigraphic evidence of abnormal increased glucose metabolism on meticulous inspection of whole body acquisitions to include all three axis reconstructions. 2. Normal physiologic distribution of the radiopharmaceutical is apparent in the hepatic (3.9/3.4) and splenic parenchyma, both renal units, bladder and visualized intestinal tract. There is symmetric and preserved glucose metabolism noted in the visualized portion of the frontal, occipital, temporal and parietal lobes of the cerebral cortex, as well as cerebral hemispheres and basal ganglia. Diffuse intestinal tract activity is noted throughout all four quadrants of the abdominal-pelvic retroperitoneum, mesentery consistent with normal physiologic distribution of the radiopharmaceutical. There is a subtle increase in glucose concentration observed in the distribution of the left mid clavicle generating a calculated maximum standard uptake value of 1.5. Quantitative criteria for viable osseous neoplasm are not fulfilled. Nrwu-T-Nmkw-MediPort placement is noted. The prior defined morphologic-anatomic changes noted on CT of the neck, chest, abdomen and pelvis manifest on the FDG PET CT study report dated 01/10/18 are essentially unchanged on the present examination. PET/PET/CT Tumor Base -Thigh Subs IMPRESSION: 1. NEGATIVE EXAMINATION. There is no definitive quantitative scintigraphic evidence of recurrent-viable neoplasm. 2. Mild increased glucose concentration newly defined in the left mid clavicle does not fulfill quantitative criteria for viable neoplasm. (Tarun et al, Clinical Nuclear Medicine 29:161, 2004). 3. Overall, compared to the prior FDG PET study report dated 01/10/18, there is current and continued absence of defined viable neoplastic disease. Electronic Signature Edwar Owens D.O. Electronically Signed: Edwar Owens DO at 22:34 EST Tel , Service support , CC: Mecca Murphy; lIan Berg MD [employer] Operations Engineer: Signed CBC W/DIFF, AUTOMATED Collected: 07/04/2018 Status: F Source: [facility] 11:35 AM [facility] REPOSITORY Order Comment: Reason for Laboratory Test . TYPE CODE TESTS RESULT OUT OF RANGE REFERENCE UNITS LAB L100.1000 4.4-11.0 K/mm3 Normal WBC 5.5 LAB L100.1200 4.2-5.4 M/mm3 Normal RBC 4.26 LAB L100.1300 12.0-15.0 g/dl Normal HGB 12.9 LAB L100.1400 37-47 % Normal HCT 40.2 LAB L100.1500 81-99 fL Normal MCV 94.4 LAB L100.1600 27.0-32.0 pg Normal MCH 30.3 LAB L100.1700 32-36 g/gl Normal MCHC 32.1 LAB L100.1810 11.6-14.6 % Normal RDW CV 13.2 LAB L100.1820 35.1-43.9 fl High RDW SD 44.9 LAB L100.1900 150-450 K/mm3 Normal PLT 173 LAB L100.2000 6.2-12.0 fl Normal MPV 10.9 LAB L100.2100 47-70 % Normal NEUT% 67.5 LAB L100.2200 19-41 % Normal LY% 25.1 LAB L100.2300 0-10 % Normal MONO% 5.5 LAB L100.2400 0-5 % Normal EO% 1.3 LAB L100.2500 0-1 % Normal BASO% 0.4 LAB L100.2550 0.0-0.9 % Normal IM GRAN % 0.200 Result Comment: IG% - Immature Granulocytes (promyelocytes, myelocytes and metamyelocytes) > 1% indicates that a LEFT SHIFT is Present. LAB L100.2620 2.0-7.7 X10 3/uL Normal Absolute Neut 3.7 LAB L100.2720 0.83-4.51 X10 3/ul Normal Absolute Lymph 1.38 Performed By: #### L100.0100 #### [facility] [address] [place] [address]. [place], [place], [address] CANCER ANTIGEN 125 Collected: 07/04/2018 Status: F Source: [facility] [place] 11:35 AM [facility] REPOS[facility]ORY Order Comment: Reason for Laboratory Test . TYPE CODE TESTS RESULT OUT OF RANGE REFERENCE UNITS LAB L3100.5000 0.0-38.1 U/mL High CA125 69.3 2303 Result Comment: [facility] ECLIA methodology Performed at: [facility] [address] [id number] [place] Boss: Christiano Irvin PhD, Phone: [phone] Performed By: #### L3100.5000 #### [facility] (refer to report for specific site) refer to report for address and phone number ONCOLOGY VISIT REPORT Observed: 06/26/2018 Status: F Source: [place] [place] 5:19 PM [facility] REPOS[facility]ORY [facility] [address] [place] [address]. [place] [address] OFFICE VISIT Date of Service: 06/23/18 1141 MR#: [id number] Acct: [id number] Name: MULU ALEXANDER Rep #: [id number] : 1940 From: Ilan Berg MD Age/Sex: 77/F Location: OMD Status: Signed Subjective - Date of Service Date of Service:: 06/23/18 - Chief Complaint For Zejula therapy. - History of Present Illness Ms. Mulu Alexander is a 77-year-old woman who presented with abdominal pain. CT scan of the abdomen and pelvis on 05/26/2016 showed ascites, omental caking, bulky cervix, and an endometrial prominence suggestive of a gynecologic malignancy. Transvaginal ultrasound confirmed these findings. The patient was seen by Dr. Xiao. 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 CA125 on 07/14/2016 was 64,000. The patient had a PET CT on 07/15/2016, which showed hypermetabolic activity in the abdominopelvic mesentery, saundra hepatis and hepatic capsule with a single focus within the mid-abdominal retroperitoneum, as well as an incidental finding of pleural effusion. She received neoadjuvant chemotherapy with carboplatin and dose- dense Taxol x 3 cycles from 08/03/2016 to 09/28/2016. Underwent AYLA-BSO with debulking per Dr. Xiao on 10/20/2016, complicated by ileus. She received adjuvant Carboplatin and Dose Dense Taxol x 3 cycles from 12/08/2016 to 02/09/2017. She was seen at [facility], had a CTA scan to rule out PE on 04/14/2017 and was found a splenic mass. CA125 was 343 on 05/05/2017. CT c/a/p on 05/11/2017 was negative, PET/CT on 05/17/2017 showed solitary hypermetabolic activity in L paramedian upper pelvic area. She was seen by Dr. Xiao, chemotherapy was suggested. She started chemotherapy with Doxil 50mg/m2 on 06/22/2017. She had a CT after the 2nd cycle which showed stable disease. Developed pain and redness of the palms and mouth ulcers subsequent to cycle 2. Cycle 3 delayed by 2 weeks, administered 08/24/17 with 20% dose attenuation. CA125 on 10/12/2017 was 51. Completed 6 cycles Doxil on 11/23/17. PET/CT on 01/10/2018 showed no hypermetabolic activity. CA125 on 01/27/2018 was 38.8. She started Zejula 300mg on 01/23/2018, had general weakness with nausea so decreased it to 200mg. She had persistent nausea so Zejula was decreased to 100mg PO daily on 04/28/2018. CA125 started rising, had CT a/p done and comes for follow up. Feels better, no nausea. - Past Medical/Social History Past Medical History Past Medical History: Anxiety,Asthma,Congestive heart failure,GERD, Hypertension,Pneumonia Cancer: Ovarian cancer Past Surgical History Surgical: Cholecystectomy,Hysterectomy,Port placement Other Surgical History: cardiac stents x2 Family History Paternal Past Medical History: Heart disease,Tuberculosis Maternal Past Medical History: Diabetes mellitus,Heart disease,Hypertension Social History Social History: No changes Smoking Status Never smoker Vital Signs Height 5 ft 4 in Weight: 92.986 kg Weight in Pounds 205.0 lbs Pulse Ox 94 - Physical Exam General: Alert, Oriented x3, No apparent distress Laboratory Data: Laboratory Tests CA 125 Antigen 41.2 H 54.6 H Diagnostic Data: 06/07/2018 CT a/p reviewed. CT/Abdomen/Pelvis WITH Contrast IMPRESSION: Stable postsurgical changes from a prior hysterectomy and bilateral oophorectomy. No evidence of metastatic or recurrent disease in the abdomen or pelvis. Electronically Signed: Guerrero Noriega, at 19:23 EDT Assessment and Plan Recurrent ovarian cancer with peritoneal metastases, finished Doxil on 11/23/2017. Started Zejula on 01/23/2018, now on 100mg. Increasing CA125 with negative CT. Plan is to continue Zejula to 100mg PO daily. obtain PET/CT. RTC 2 wks. Medications: Prescriptions This Visit Medication Instructions Recorded Montelukast [Singulair] 10 mg PO DAILY PRN 05/05/17 Prochlorperazine Maleate 10 mg PO Q6H PRN PRN #30 tablet 06/22/17 Primary Care Provider: Abel Haddad Referring Provider: - Problem List (1) Ovarian metastasis Status: Chronic Code Visit Office Visits / Consults: [id number] OV L3 Est 06/26/18 1719 <Electronically signed by Ilan Berg MD> Date Ilan Berg MD Cosigner Signature: Date (if applicable) CC: CBC W/DIFF, AUTOMATED Collected: 06/21/2018 Status: F Source: [facility] 10:26 AM [facility] RE[facility] Order Comment: Reason for Laboratory Test . TYPE CODE TESTS RESULT OUT OF RANGE REFERENCE UNITS LAB L100.1000 4.4-11.0 K/mm3 Normal WBC 6.7 LAB L100.1200 4.2-5.4 M/mm3 Low RBC 4.14 LAB L100.1300 12.0-15.0 g/dl Normal HGB 12.8 LAB L100.1400 37-47 % Normal HCT 39.2 LAB L100.1500 81-99 fL Normal MCV 94.7 LAB L100.1600 27.0-32.0 pg Normal MCH 30.9 LAB L100.1700 32-36 g/gl Normal MCHC 32.7 LAB L100.1810 11.6-14.6 % Normal RDW CV 13.1 LAB L100.1820 35.1-43.9 fl Normal RDW SD 43.9 LAB L100.1900 150-450 K/mm3 Normal PLT 174 LAB L100.2000 6.2-12.0 fl Normal MPV 10.7 LAB L100.2100 47-70 % Normal NEUT% 68.7 LAB L100.2200 19-41 % Normal LY% 23.0 LAB L100.2300 0-10 % Normal MONO% 5.7 LAB L100.2400 0-5 % Normal EO% 1.8 LAB L100.2500 0-1 % Normal BASO% 0.5 LAB L100.2550 0.0-0.9 % Normal IM GRAN % 0.300 Result Comment: IG% - Immature Granulocytes (promyelocytes, myelocytes and metamyelocytes) > 1% indicates that a LEFT SHIFT is Present. LAB L100.2620 2.0-7.7 X10 3/uL Normal Absolute Neut 4.6 LAB L100.2720 0.83-4.51 X10 3/ul Normal Absolute Lymph 1.53 Performed By: #### L100.0100 #### [facility] [address] [place], [address] COMPREHENSIVE METABOLIC Collected: 06/21/2018 Status: F Source: DIANE OZUNA 10:26 AM [facility] REPOSITORY Order Comment: Reason for Laboratory Test . TYPE CODE TESTS RESULT OUT OF RANGE REFERENCE UNITS LAB L501.0100 74-106 mg/dL High GLU 134 Result Comment: Fasting Glucose result greater than or equal to 126 mg/dL suggests DIABETES MELLITUS per A.D.A. criteria. Please note revised GLUCOSE reference range effective 2017. LAB L501.1000 7-18 mg/dL Normal BUN 13 LAB L501.1100 0.55-1.02 mg/dL Normal CREAT,SERUM 0.94 Result Comment: The validity of the calculated GFR AND GFRAA in patients over 70 years has not been determined. Clinical correlation is essential. LAB L501.1110 >60 mL/min Normal EST GFR 62 Result Comment: Non- GFR Calc LAB L501.1115 >60 mL/min Normal EST GFR - AA 75 Result Comment: GFR Calc LAB L501.1255 ml/min Normal Estimated CRCL 44.65 LAB L501.1300 10-20 RATIO Normal BUN/CRE 13.8 LAB L501.1500 6.4-8. g/dL Normal 2 T PROT 6.4 LAB L501.1800 3.2-5. g/dL Normal 0 ALB 3.5 LAB L501.1950 2.2-4. g/dL Normal 2 GLOB 2.9 LAB L501.2000 0.9-2. RATIO Normal 4 A/G 1.2 LAB L501.2200 8.5-10 mg/dL Normal .1 CA 8.7 LAB L501.4100 15-37 U/L Normal AST 20 LAB L501.4305 45-117 U/L High ALK P 170 LAB L501.4405 13-56 U/L Normal ALT 27 LAB L501.4600 0.20-1 mg/dL Normal .00 T BILI 0.50 LAB L501.5300 136-14 mmol/L Normal 5 NA 139 LAB L501.5600 3.5-5. mmol/L Normal 1 K 4.1 LAB L501.5900 98-107 mmol/L Normal CL 104 LAB L501.6100 21.0-3 mmol/L Normal 2.0 CO2 30.0 LAB L501.6200 5-15 Normal GAP 5 Performed By: #### L500.4050 #### [facility] [address] [facility]. [place], [place], [id number] CANCER ANTIGEN 125 Collected: 06/21/2018 Status: F Source: [place] 10:26 AM [facility] REPOSITORY Order Comment: Reason for Laboratory Test . TYPE CODE TESTS RESULT OUT OF RANGE REFERENCE UNITS LAB L3100.5000 0.0-38.1 U/mL High CA125 54.6 2303 Result Comment: [employer] ECLIA methodology Performed at: [facility] [address] [id number] [place] Boss: Christiano Irvin PhD, Phone: [phone] Performed By: #### L3100.5000 #### [facility] (refer to report for specific site) refer to report for address and phone number ABDOMEN/PELVIS WITH Observed: 06/07/2018 Status: F Source: [place] CONTRAST 12:48 PM [facility] REPOSITORY [facility] Imaging Services [address] [place] [address] Abdomen/Pelvis WITH Contrast MR#: [id number] Acct: [id number] Name: ALESIAMULU M Rep #: [id number] : 1940 F 77 From: Guerrero Noriega MD PCP: RAUL Escamilla Status: REG CLI Study: Abdomen/Pelvis WITH Contrast Date of Exam: 06/07/18 Exam# [id number] Ordering Dr: Ilan Berg MD STUDY: CT ABDOMEN AND PELVIS WITH CONTRAST REASON FOR EXAM: Female, 77 years old. Ovarian cancer. RADIATION DOSAGE (If Supplied By Facility): CTDIvol = ( 22 ) mGy, DLP = ( 1105 ) mGycm TECHNIQUE: Transaxial images were obtained from the dome of the diaphragm to the symphysis pubis without oral contrast. 100 ml of Isovue 300 contrast was administered. Sagittal and coronal images were reconstructed. Individualized dose optimization techniques were used for this CT. COMPARISON: PET/CT dated 01/10/2018. CT dated 10/07/2017. FINDINGS: The visualized lung bases are clear. The visualized portions of the heart and pericardium are within normal limits. The patient is status post cholecystectomy. The liver is within normal limits. There are no suspicious hepatic lesions. The spleen is normal in size. The pancreas is within normal limits. The adrenal glands are within normal limits. There are no renal or ureteral stones. There is no hydronephrosis. There are stable cysts in the right kidney. There are no left renal lesions. Normal visualized stomach. There is no bowel obstruction or inflammation. The appendix is not visualized, but there are no findings to suggest acute appendicitis. The aorta is normal in caliber. There is no abdominal or pelvic free air, free fluid, fluid collection or lymphadenopathy. There are stable postsurgical changes from a prior hysterectomy and bilateral oophorectomy. There are no destructive osseous lesions. CT/Abdomen/Pelvis WITH Contrast IMPRESSION: Stable postsurgical changes from a prior hysterectomy and bilateral oophorectomy. No evidence of metastatic or recurrent disease in the abdomen or pelvis. Electronically Signed: Guerrero Hari, at 19:23 EDT Tel , Service support , CC: RAUL Carranza; Ilan Berg MD [employer] Engineer: Signed ONCOLOGY VISIT REPORT Observed: 05/26/2018 Status: F Source: [place] 11:00 AM [facility] REPOSITORY [facility] [place] [address] OFFICE VISIT Date of Service: 05/26/18 1050 MR#: [id number] Acct: [id number] Name: MULU ALEXANDER Rep #: [id number] : 1940 From: Ilan Berg MD Age/Sex: 77/F Location: OMD Status: Signed Subjective - Date of Service Date of Service:: 05/26/18 - Chief Complaint For Zejula therapy. - History of Present Illness Ms. Mulu Alexander is a 77-year-old woman who presented with abdominal pain. CT scan of the abdomen and pelvis on 05/26/2016 showed ascites, omental caking, bulky cervix, and an endometrial prominence suggestive of a gynecologic malignancy. Transvaginal ultrasound confirmed these findings. The patient was seen by Dr. Xiao. 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 CA125 on 07/14/2016 was 64,000. The patient had a PET CT on 07/15/2016, which showed hypermetabolic activity in the abdominopelvic mesentery, saundra hepatis and hepatic capsule with a single focus within the mid-abdominal retroperitoneum, as well as an incidental finding of pleural effusion. She received neoadjuvant chemotherapy with carboplatin and dose- dense Taxol x 3 cycles from 08/03/2016 to 09/28/2016. Underwent AYLA-BSO with debulking per Dr. Xiao on 10/20/2016, complicated by ileus. She received adjuvant Carboplatin and Dose Dense Taxol x 3 cycles from 12/08/2016 to 02/09/2017. She was seen at [facility], had a CTA scan to rule out PE on 04/14/2017 and was found a splenic mass. CA125 was 343 on 05/05/2017. CT c/a/p on 05/11/2017 was negative, PET/CT on 05/17/2017 showed solitary hypermetabolic activity in L paramedian upper pelvic area. She was seen by Dr. Xiao, chemotherapy was suggested. She started chemotherapy with Doxil 50mg/m2 on 06/22/2017. She had a CT after the 2nd cycle which showed stable disease. Developed pain and redness of the palms and mouth ulcers subsequent to cycle 2. Cycle 3 delayed by 2 weeks, administered 08/24/17 with 20% dose attenuation. CA125 on 10/12/2017 was 51. Completed 6 cycles Doxil on 11/23/17. PET/CT on 01/10/2018 showed no hypermetabolic activity. CA125 on 01/27/2018 was 38.8. She started Zejula 300mg on 01/23/2018, had general weakness with nausea so decreased it to 200mg. She had persistent nausea so Zejula was decreased to 100mg PO daily on 04/28/2018. Comes for follow up. Feels better, no nausea. - Past Medical/Social History Past Medical History Past Medical History: Anxiety,Asthma,Congestive heart failure,GERD, Hypertension,Pneumonia Cancer: Ovarian cancer Past Surgical History Surgical: Cholecystectomy,Hysterectomy,Port placement Other Surgical History: cardiac stents x2 Family History Paternal Past Medical History: Heart disease,Tuberculosis Maternal Past Medical History: Diabetes mellitus,Heart disease,Hypertension Social History Social History: No changes Smoking Status Never smoker Review of Systems Constitutional:: Denies: Fever, Sweats, Weight loss, Appetite change, Chills Cardiovascular:: Denies: Chest pain, Palpitations, Dyspnea on exertion, Orthopnea, PND, Shortness of breath Respiratory: Denies: Cough, Hemoptysis, Shortness of Breath, Wheezing Gastrointestinal:: Denies: Abdominal pain, Nausea, Vomiting, Diarrhea, Constipation, Hematochezia Genitourinary: Denies: Dysuria, Hematuria, 15, Flank pain Musculoskeletal:: Denies: Back pain, Myalgia, Arthralgia Skin: Denies: Rash, Skin Changes, Wounds Neurological:: Denies: Headache, Dizziness, Visual changes, Tinnitus, Hearing loss Psychiatric: Denies: Anxiety, Depression, Homicidal Ideations, Suicidal Ideations Vital Signs Height 5 ft 4 in Weight: 92.986 kg Weight in Pounds 205.0 lbs Pulse Ox 96 - Physical Exam General: Alert, Oriented x3, No apparent distress HEENT: Atraumatic, PERRLA, EOMI, Normocephalic Oropharynx:: Dry mucosa Neck:: Supple, Trachea midline. Negative for: JVD, bilateral Cardiac:: Regular rate, Regular rhythm, Normal S1, Normal S2. Negative for: Murmur Lungs: Clear to auscultation, Excusion symmetrical. Negative for: Rhonchi, Wheezes Abdomen:: Bowel sounds x 4, Soft, Non-tender, Non-distended. Negative for: Hepatosplenomegaly Extremities:: Negative for: Cyanosis, Edema Neurological: Neuro grossly intact Skin:: Negative for: Lesions, Rash, Petechiae, Ecchymosis Psychiatric:: Appropriate affect, Euthymic Lymphatics:: Negative for: Cervical lymphadenopathy, Supraclavicular lymphadenopathy, Axillary lymphadenopathy Laboratory Data: Laboratory Tests CA 125 Antigen 41.1 H (0.0-38.1) U/mL Assessment and Plan Recurrent ovarian cancer with peritoneal metastases, finished Doxil on 11/23/2017. PET/CT on 01/10/2018 showed no evidence of disease. Started Zejula on 01/23/2018, now on 100mg. Tolerating therapy now. Plan is to continue Zejula to 100mg PO daily. Continue antiemetics prn. RTC 4 wks with CBC, CMP and CT abdomen/pelvis. Medications: Prescriptions This Visit Medication Instructions Recorded Montelukast [Singulair] 10 mg PO DAILY PRN 05/05/17 Prochlorperazine Maleate 10 mg PO Q6H PRN PRN #30 tablet 06/22/17 Primary Care Provider: Abel Haddad Referring Provider: - Problem List (1) Ovarian metastasis Status: Chronic Code Visit Office Visits / Consults: 93085 OV L4 Est 05/26/18 1100 <Electronically signed by Ilan eBrg MD> Date Ilan Berg MD Cosigner Signature: Date (if applicable) CC: CBC W/DIFF, AUTOMATED Collected: 05/24/2018 Status: F Source: DIANE 11:29 AM [facility] REPOS[facility]ORY Order Comment: Reason for Laboratory Test . TYPE CODE TESTS RESULT OUT OF RANGE REFERENCE UNITS LAB L100.1000 4.4-11.0 K/mm3 Normal WBC 6.3 LAB L100.1200 4.2-5.4 M/mm3 Low RBC 4.12 LAB L100.1300 12.0-15.0 g/dl Normal HGB 12.8 LAB L100.1400 37-47 % Normal HCT 38.9 LAB L100.1500 81-99 fL Normal MCV 94.4 LAB L100.1600 27.0-32.0 pg Normal MCH 31.1 LAB L100.1700 32-36 g/gl Normal MCHC 32.9 LAB L100.1810 11.6-14.6 % Normal RDW CV 13.6 LAB L100.1820 35.1-43.9 fl High RDW SD 45.0 LAB L100.1900 150-450 K/mm3 Normal PLT 175 LAB L100.2000 6.2-12.0 fl Normal MPV 10.7 LAB L100.2100 47-70 % Normal NEUT% 67.0 LAB L100.2200 19-41 % Normal LY% 24.6 LAB L100.2300 0-10 % Normal MONO% 5.6 LAB L100.2400 0-5 % Normal EO% 2.1 LAB L100.2500 0-1 % Normal BASO% 0.5 LAB L100.2550 0.0-0.9 % Normal IM GRAN % 0.200 Result Comment: IG% - Immature Granulocytes (promyelocytes, myelocytes and metamyelocytes) > 1% indicates that a LEFT SHIFT is Present. LAB L100.2620 2.0-7.7 X10 3/uL Normal Absolute Neut 4.2 LAB L100.2720 0.83-4.51 X10 3/ul Normal Absolute Lymph 1.55 Performed By: #### L100.0100 #### [facility] [address] [place] [address], [address] #### L3100.5000 #### [facility] (refer to report for specific site) refer to report for address and phone number CANCER ANTIGEN 125 Collected: 05/24/2018 Status: F Source: [place] 11:29 AM [facility] REPOS[facility] Order Comment: Reason for Laboratory Test . TYPE CODE TESTS RESULT OUT OF RANGE REFERENCE UNITS LAB L3100.5000 0.0-38.1 U/mL High CA125 41.1 2303 Result Comment: Ger[facility] ECLIA methodology Performed at: - [facility] [id number] [place] Boss: Christiano Irvin PhD, Phone: [phone] Performed By: #### L100.0100 #### [facility] [address] [facility] [place], [address] #### L3100.5000 #### [facility] (refer to report for specific site) refer to report for address and phone number COMPREHENSIVE METABOLIC Collected: 05/24/2018 Status: F Source: DIANE OZUNA 11:29 AM [facility] Order Comment: Reason for Laboratory Test . TYPE CODE TESTS RESULT OUT OF RANGE REFERENCE UNITS LAB L501.0100 74-106 mg/dL High GLU 174 Result Comment: Fasting Glucose result greater than or equal to 126 mg/dL suggests DIABETES MELLITUS per A.D.A. criteria. Please note revised GLUCOSE reference range effective 2017. LAB L501.1000 7-18 mg/dL Normal BUN 15 LAB L501.1100 0.55-1.02 mg/dL Normal CREAT,SERUM 1.00 Result Comment: The validity of the calculated GFR AND GFRAA in patients over 70 years has not been determined. Clinical correlation is essential. LAB L501.1110 >60 mL/min Low EST GFR 57 Result Comment: Non- GFR Calc LAB L501.1115 >60 mL/min Normal EST GFR - AA 69 Result Comment: GFR Calc LAB L501.1255 ml/min Normal Estimated CRCL 41.97 LAB L501.1300 10-20 RATIO Normal BUN/CRE 15.0 LAB L501.1500 6.4-8. g/dL Normal 2 T PROT 6.6 LAB L501.1800 3.2-5. g/dL Normal 0 ALB 3.5 LAB L501.1950 2.2-4. g/dL Normal 2 GLOB 3.1 LAB L501.2000 0.9-2. RATIO Normal 4 A/G 1.1 LAB L501.2200 8.5-10 mg/dL Normal .1 CA 9.1 LAB L501.4100 15-37 U/L Normal AST 19 LAB L501.4305 45-117 U/L High ALK P 175 LAB L501.4405 13-56 U/L Normal ALT 29 LAB L501.4600 0.20-1 mg/dL Normal .00 T BILI 0.40 LAB L501.5300 136-14 mmol/L Normal 5 NA 139 LAB L501.5600 3.5-5. mmol/L Normal 1 K 4.1 LAB L501.5900 98-107 mmol/L Normal CL 103 LAB L501.6100 21.0-3 mmol/L Normal 2.0 CO2 31.0 LAB L501.6200 5-15 Normal GAP 5 Performed By: #### L500.4050 #### [facility] [address] [place], [address] ONCOLOGY VISIT REPORT Observed: 04/29/2018 Status: F Source: [place] 10:49 AM [facility] REPOSITORY [facility] [address] [place] [address] OFFICE VISIT Date of Service: 04/28/18 1059 MR#: [id number] Acct: [id number] Name: MULU ALEXANDER Rep #: [id number] : 1940 From: Ilan Berg MD Age/Sex: 77/F Location: OMD Status: Signed Subjective - Date of Service Date of Service:: 04/28/18 - Chief Complaint For Zejula therapy. - History of Present Illness Ms. Mulu Alexander is a 77-year-old woman who presented with abdominal pain. CT scan of the abdomen and pelvis on 05/26/2016 showed ascites, omental caking, bulky cervix, and an endometrial prominence suggestive of a gynecologic malignancy. Transvaginal ultrasound confirmed these findings. The patient was seen by Dr. Xiao. 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 CA125 on 07/14/2016 was 64,000. The patient had a PET CT on 07/15/2016, which showed hypermetabolic activity in the abdominopelvic mesentery, saundra hepatis and hepatic capsule with a single focus within the mid-abdominal retroperitoneum, as well as an incidental finding of pleural effusion. She received neoadjuvant chemotherapy with carboplatin and dose- dense Taxol x 3 cycles from 08/03/2016 to 09/28/2016. Underwent AYLA-BSO with debulking per Dr. Xiao on 10/20/2016, complicated by ileus. She received adjuvant Carboplatin and Dose Dense Taxol x 3 cycles from 12/08/2016 to 02/09/2017. She was seen at [facility], had a CTA scan to rule out PE on 04/14/2017 and was found a splenic mass. CA125 was 343 on 05/05/2017. CT c/a/p on 05/11/2017 was negative, PET/CT on 05/17/2017 showed solitary hypermetabolic activity in L paramedian upper pelvic area. She was seen by Dr. Xiao, chemotherapy was suggested. She started chemotherapy with Doxil 50mg/m2 on 06/22/2017. She had a CT after the 2nd cycle which showed stable disease. Developed pain and redness of the palms and mouth ulcers subsequent to cycle 2. Cycle 3 delayed by 2 weeks, administered 08/24/17 with 20% dose attenuation. CA125 on 10/12/2017 was 51. Completed 6 cycles Doxil on 11/23/17. PET/CT on 01/10/2018 showed no hypermetabolic activity. CA125 on 01/27/2018 was 38.8. She started Zejula 300mg on 01/23/2018, had general weakness with nausea so decreased it to 200mg. She remains on 200mg daily and comes for follow up. She still has nausea, takes antiemetics with relief. She is miserable with it as it is occurring after all meals. - Past Medical/Social History Past Medical History Past Medical History: Anxiety,Asthma,Congestive heart failure,GERD, Hypertension,Pneumonia Cancer: Ovarian cancer Past Surgical History Surgical: Cholecystectomy,Hysterectomy,Port placement Other Surgical History: cardiac stents x2 Family History Paternal Past Medical History: Heart disease,Tuberculosis Maternal Past Medical History: Diabetes mellitus,Heart disease,Hypertension Social History Social History: No changes Smoking Status Never smoker Review of Systems Constitutional:: Denies: Fever, Sweats, Weight loss, Appetite change, Chills Cardiovascular:: Denies: Chest pain, Palpitations, Dyspnea on exertion, Orthopnea, PND, Shortness of breath Respiratory: Denies: Cough, Hemoptysis, Shortness of Breath, Wheezing Gastrointestinal:: Reports: Nausea Genitourinary: Denies: Dysuria, Hematuria, 15, Flank pain Musculoskeletal:: Denies: Back pain, Myalgia, Arthralgia Skin: Denies: Rash, Skin Changes, Wounds Neurological:: Denies: Headache, Dizziness, Visual changes, Tinnitus, Hearing loss Vital Signs Height 5 ft 4 in Weight: 92.533 kg Weight in Pounds 204.0 lbs Pulse Ox 95 - Physical Exam General: Alert, Oriented x3, No apparent distress HEENT: Atraumatic, PERRLA, EOMI, Normocephalic Oropharynx:: Dry mucosa Neck:: Supple, Trachea midline. Negative for: JVD, bilateral Cardiac:: Regular rate, Regular rhythm, Normal S1, Normal S2. Negative for: Murmur Lungs: Clear to auscultation, Excusion symmetrical. Negative for: Rhonchi, Wheezes Neurological: Neuro grossly intact Skin:: Negative for: Lesions, Rash, Petechiae, Ecchymosis Psychiatric:: Appropriate affect, Euthymic Lymphatics:: Negative for: Cervical lymphadenopathy, Supraclavicular lymphadenopathy, Axillary lymphadenopathy Laboratory Data: Laboratory Tests WBC 5.5 (4.4-11.0) K/mm3 RBC 4.27 (4.2-5.4) M/mm3 Hgb 13.1 (12.0-15.0) g/dl Assessment and Plan Recurrent ovarian cancer with peritoneal metastases, finished Doxil on 11/23/2017. PET/CT on 01/10/2018 showed no evidence of disease. Started Zejula on 01/23/2018, now on 200mg. Persistent Nausea due to Zejula. She wants to go to 1 pill a day. Plan is to decrease Zejula to 100mg PO daily. Continue antiemetics prn. RTC 4 wks with CBC, CMP. Medications: Prescriptions This Visit Medication Instructions Recorded Montelukast [Singulair] 10 mg PO DAILY PRN 05/05/17 Prochlorperazine Maleate 10 mg PO Q6H PRN PRN #30 tablet 06/22/17 Primary Care Provider: Abel Haddad Referring Provider: - Problem List (1) Ovarian metastasis Status: Chronic (2) Nausea Status: Chronic Code Visit Office Visits / Consults: 37517 OV L3 Est 04/29/18 1049 <Electronically signed by Ilan Berg MD> Date Ilan Berg MD Cosigner Signature: Date (if applicable) CC: CBC W/DIFF, AUTOMATED Collected: 04/28/2018 Status: F Source: DIANE 9:49 AM [facility] REPOSITORY Order Comment: Reason for Laboratory Test . TYPE CODE TESTS RESULT OUT OF RANGE REFERENCE UNITS LAB L100.1000 4.4-11.0 K/mm3 Normal WBC 5.5 LAB L100.1200 4.2-5.4 M/mm3 Normal RBC 4.27 LAB L100.1300 12.0-15.0 g/dl Normal HGB 13.1 LAB L100.1400 37-47 % Normal HCT 39.8 LAB L100.1500 81-99 fL Normal MCV 93.2 LAB L100.1600 27.0-32.0 pg Normal MCH 30.7 LAB L100.1700 32-36 g/gl Normal MCHC 32.9 LAB L100.1810 11.6-14.6 % High RDW CV 15.2 LAB L100.1820 35.1-43.9 fl High RDW SD 50.5 LAB L100.1900 150-450 K/mm3 Normal PLT 181 LAB L100.2000 6.2-12.0 fl Normal MPV 10.5 LAB L100.2100 47-70 % High NEUT% 71.6 LAB L100.2200 19-41 % Normal LY% 19.7 LAB L100.2300 0-10 % Normal MONO% 5.6 LAB L100.2400 0-5 % Normal EO% 2.4 LAB L100.2500 0-1 % Normal BASO% 0.5 LAB L100.2550 0.0-0.9 % Normal IM GRAN % 0.200 Result Comment: IG% - Immature Granulocytes (promyelocytes, myelocytes and metamyelocytes) > 1% indicates that a LEFT SHIFT is Present. LAB L100.2620 2.0-7.7 X10 3/uL Normal Absolute Neut 4.0 LAB L100.2720 0.83-4.51 X10 3/ul Normal Absolute Lymph 1.09 Performed By: #### L100.0100, L500.4050 #### [facility] [place], [address] COMPREHENSIVE METABOLIC Collected: 04/28/2018 Status: F Source: DIANE OZUNA 9:49 AM [facility] REPOS[facility] Order Comment: Reason for Laboratory Test . TYPE CODE TESTS RESULT OUT OF RANGE REFERENCE UNITS LAB L501.0100 74-106 mg/dL High GLU 162 Result Comment: Fasting Glucose result greater than or equal to 126 mg/dL suggests DIABETES MELLITUS per A.D.A. criteria. Please note revised GLUCOSE reference range effective 2017. LAB L501.1000 7-18 mg/dL Normal BUN 12 LAB L501.1100 0.55-1.02 mg/dL Normal CREAT,SERUM 1.02 Result Comment: The validity of the calculated GFR AND GFRAA in patients over 70 years has not been determined. Clinical correlation is essential. LAB L501.1110 >60 mL/min Low EST GFR 56 Result Comment: Non- GFR Calc LAB L501.1115 >60 mL/min Normal EST GFR - AA 68 Result Comment: GFR Calc LAB L501.1255 ml/min Normal Estimated CRCL 41.15 LAB L501.1300 10-20 RATIO Normal BUN/CRE 11.8 LAB L501.1500 6.4-8. g/dL Normal 2 T PROT 6.6 LAB L501.1800 3.2-5. g/dL Normal 0 ALB 3.3 LAB L501.1950 2.2-4. g/dL Normal 2 GLOB 3.3 LAB L501.2000 0.9-2. RATIO Normal 4 A/G 1.0 LAB L501.2200 8.5-10 mg/dL Normal .1 CA 9.1 LAB L501.4100 15-37 U/L Normal AST 19 LAB L501.4305 45-117 U/L High ALK P 180 LAB L501.4405 13-56 U/L Normal ALT 23 LAB L501.4600 0.20-1 mg/dL Normal .00 T BILI 0.40 LAB L501.5300 136-14 mmol/L Normal 5 NA 139 LAB L501.5600 3.5-5. mmol/L Normal 1 K 3.8 LAB L501.5900 98-107 mmol/L Normal CL 103 LAB L501.6100 21.0-3 mmol/L Normal 2.0 CO2 27.0 LAB L501.6200 5-15 Normal GAP 9 Performed By: #### L100.0100, L500.4050 #### [facility] [address] [place], [address] ONCOLOGY VISIT REPORT Observed: 03/31/2018 Status: F Source: DIANE 11:44 AM [facility] RE[facility] [address] [place] [address] OFFICE VISIT Date of Service: 03/31/18 1140 MR#: [id number] Acct: [id number] Name: MULU ALEXANDER Rep #: [id number] : 1940 From: Ilan Berg MD Age/Sex: 77/F Location: OMD Status: Signed Subjective - Date of Service Date of Service:: 03/31/18 - Chief Complaint For Zejula therapy. - History of Present Illness Ms. Mulu Alexander is a 77-year-old woman who presented with abdominal pain. CT scan of the abdomen and pelvis on 05/26/2016 showed ascites, omental caking, bulky cervix, and an endometrial prominence suggestive of a gynecologic malignancy. Transvaginal ultrasound confirmed these findings. The patient was seen by Dr. Xiao. 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 CA125 on 07/14/2016 was 64,000. The patient had a PET CT on 07/15/2016, which showed hypermetabolic activity in the abdominopelvic mesentery, saundra hepatis and hepatic capsule with a single focus within the mid-abdominal retroperitoneum, as well as an incidental finding of pleural effusion. She received neoadjuvant chemotherapy with carboplatin and dose- dense Taxol x 3 cycles from 08/03/2016 to 09/28/2016. Underwent AYLA-BSO with debulking per Dr. Xiao on 10/20/2016, complicated by ileus. She received adjuvant Carboplatin and Dose Dense Taxol x 3 cycles from 12/08/2016 to 02/09/2017. She was seen at [facility], had a CTA scan to rule out PE on 04/14/2017 and was found a splenic mass. CA125 was 343 on 05/05/2017. CT c/a/p on 05/11/2017 was negative, PET/CT on 05/17/2017 showed solitary hypermetabolic activity in L paramedian upper pelvic area. She was seen by Dr. Xiao, chemotherapy was suggested. She started chemotherapy with Doxil 50mg/m2 on 06/22/2017. She had a CT after the 2nd cycle which showed stable disease. Developed pain and redness of the palms and mouth ulcers subsequent to cycle 2. Cycle 3 delayed by 2 weeks, administered 08/24/17 with 20% dose attenuation. CA125 on 10/12/2017 was 51. Completed 6 cycles Doxil on 11/23/17. PET/CT on 01/10/2018 showed no hypermetabolic activity. CA125 on 01/27/2018 was 38.8. She started Zejula 300mg on 01/23/2018, had general weakness with nausea so decreased it to 200mg. She remains on 200mg daily and comes for follow up. She still has nausea, takes antiemetics with relief. - Past Medical/Social History Past Medical History Past Medical History: Anxiety,Asthma,Congestive heart failure,GERD, Hypertension,Pneumonia Cancer: Ovarian cancer Past Surgical History Surgical: Cholecystectomy,Hysterectomy,Port placement Other Surgical History: cardiac stents x2 Family History Paternal Past Medical History: Heart disease,Tuberculosis Maternal Past Medical History: Diabetes mellitus,Heart disease,Hypertension Social History Social History: No changes Smoking Status Never smoker Review of Systems Constitutional:: Denies: Fever, Sweats, Weight loss, Appetite change, Chills Cardiovascular:: Denies: Chest pain, Palpitations, Dyspnea on exertion, Orthopnea, PND, Shortness of breath Respiratory: Denies: Cough, Hemoptysis, Shortness of Breath, Wheezing Gastrointestinal:: Denies: Abdominal pain, Nausea, Vomiting, Diarrhea, Constipation, Hematochezia Genitourinary: Denies: Dysuria, Hematuria, 15, Flank pain Musculoskeletal:: Denies: Back pain, Myalgia, Arthralgia Skin: Denies: Rash, Skin Changes, Wounds Neurological:: Denies: Headache, Dizziness, Visual changes, Tinnitus, Hearing loss Psychiatric: Denies: Anxiety, Depression, Homicidal Ideations, Suicidal Ideations Vital Signs Height 5 ft 4 in Weight: 93.894 kg Weight in Pounds 207.0 lbs Pulse Ox 95 - Physical Exam General: Alert, Oriented x3, No apparent distress HEENT: Atraumatic, PERRLA, EOMI, Normocephalic Oropharynx:: Dry mucosa Neck:: Supple, Trachea midline. Negative for: JVD, bilateral Cardiac:: Regular rate, Regular rhythm, Normal S1, Normal S2. Negative for: Murmur Lungs: Clear to auscultation, Excusion symmetrical. Negative for: Rhonchi, Wheezes Lymphatics:: Negative for: Cervical lymphadenopathy, Supraclavicular lymphadenopathy, Axillary lymphadenopathy Laboratory Data: Laboratory Tests WBC 6.2 (4.4-11.0) K/mm3 RBC 4.20 (4.2-5.4) M/mm3 Hgb 12.7 (12.0-15.0) g/dl Laboratory Tests CA 125 Antigen 41.2 H Assessment and Plan Recurrent ovarian cancer with peritoneal metastases, finished Doxil on 11/23/2017. PET/CT on 01/10/2018 showed no evidence of disease. Started Zejula on 01/23/2018, now on 200mg. Nausea due to Zejula. Plan is to continue Zejula 200mg PO daily. Continue antiemetics prn. RTC 4 wks with CBC, CMP. Medications: Prescriptions This Visit Medication Instructions Recorded Montelukast [Singulair] 10 mg PO DAILY PRN 05/05/17 Prochlorperazine Maleate 10 mg PO Q6H PRN PRN #30 tablet 06/22/17 Ondansetron HCl [Zofran] 4 mg PO Q8H PRN PRN #30 tab 08/24/17 Primary Care Provider: Abel Haddad Referring Provider: - Problem List (1) Ovarian metastasis Status: Chronic Code Visit Office Visits / Consults: [id number] OV L3 Est 03/31/18 1144 <Electronically signed by Ilan Berg MD> Date Ilan Berg MD Cosigner Signature: Date (if applicable) CC: CBC W/DIFF, AUTOMATED Collected: 03/31/2018 Status: F Source: [facility] 9:56 AM [facility] [place] REPOSITORY Order Comment: Reason for Laboratory Test . TYPE CODE TESTS RESULT OUT OF RANGE REFERENCE UNITS LAB L100.1000 4.4-11.0 K/mm3 Normal WBC 6.2 LAB L100.1200 4.2-5.4 M/mm3 Normal RBC 4.20 LAB L100.1300 12.0-15.0 g/dl Normal HGB 12.7 LAB L100.1400 37-47 % Normal HCT 39.0 LAB L100.1500 81-99 fL Normal MCV 92.9 LAB L100.1600 27.0-32.0 pg Normal MCH 30.2 LAB L100.1700 32-36 g/gl Normal MCHC 32.6 LAB L100.1810 11.6-14.6 % High RDW CV 15.2 LAB L100.1820 35.1-43.9 fl High RDW SD 51.4 LAB L100.1900 150-450 K/mm3 Normal PLT 187 LAB L100.2000 6.2-12.0 fl Normal MPV 10.5 LAB L100.2100 47-70 % High NEUT% 70.8 LAB L100.2200 19-41 % Normal LY% 20.3 LAB L100.2300 0-10 % Normal MONO% 5.5 LAB L100.2400 0-5 % Normal EO% 2.9 LAB L100.2500 0-1 % Normal BASO% 0.3 LAB L100.2550 0.0-0.9 % Normal IM GRAN % 0.200 Result Comment: IG% - Immature Granulocytes (promyelocytes, myelocytes and metamyelocytes) > 1% indicates that a LEFT SHIFT is Present. LAB L100.2620 2.0-7.7 X10 3/uL Normal Absolute Neut 4.4 LAB L100.2720 0.83-4.51 X10 3/ul Normal Absolute Lymph 1.25 Performed By: #### L100.0100 #### [facility] [address] [place], [address] COMPREHENSIVE METABOLIC Collected: 03/24/2018 Status: F Source: [facility] 2:00 PM [facility] REPOSITORY Order Comment: Reason for Laboratory Test . TYPE CODE TESTS RESULT OUT OF RANGE REFERENCE UNITS LAB L501.0100 74-106 mg/dL High GLU 176 Result Comment: Fasting Glucose result greater than or equal to 126 mg/dL suggests DIABETES MELLITUS per A.D.A. criteria. Please note revised GLUCOSE reference range effective 2017. LAB L501.1000 7-18 mg/dL Normal BUN 13 LAB L501.1100 0.55-1.02 mg/dL Normal CREAT,SERUM 1.00 Result Comment: The validity of the calculated GFR AND GFRAA in patients over 70 years has not been determined. Clinical correlation is essential. LAB L501.1110 >60 mL/min Low EST GFR 58 Result Comment: Non- GFR Calc LAB L501.1115 >60 mL/min Normal EST GFR - AA 70 Result Comment: GFR Calc LAB L501.1255 ml/min Normal Estimated CRCL 41.97 LAB L501.1300 10-20 RATIO Normal BUN/CRE 13.0 LAB L501.1500 6.4-8. g/dL Normal 2 T PROT 6.7 LAB L501.1800 3.2-5. g/dL Normal 0 ALB 3.5 LAB L501.1950 2.2-4. g/dL Normal 2 GLOB 3.2 LAB L501.2000 0.9-2. RATIO Normal 4 A/G 1.1 LAB L501.2200 8.5-10 mg/dL Normal .1 CA 9.0 LAB L501.4100 15-37 U/L Normal AST 21 LAB L501.4305 45-117 U/L High ALK P 188 LAB L501.4405 13-56 U/L Normal ALT 26 LAB L501.4600 0.20-1 mg/dL Normal .00 T BILI 0.30 LAB L501.5300 136-14 mmol/L Normal 5 NA 139 LAB L501.5600 3.5-5. mmol/L Normal 1 K 3.8 LAB L501.5900 98-107 mmol/L Normal CL 102 LAB L501.6100 21.0-3 mmol/L Normal 2.0 CO2 30.0 LAB L501.6200 5-15 Normal GAP 7 Performed By: #### L500.4050 #### [facility] [address] [place], [place], [id number] #### L3100.5000 #### [facility] (refer to report for specific site) refer to report for address and phone number CANCER ANTIGEN 125 Collected: 03/24/2018 Status: F Source: [facility] 2:00 PM [facility] REPOSITORY Order Comment: Reason for Laboratory Test . TYPE CODE TESTS RESULT OUT OF RANGE REFERENCE UNITS LAB L3100.5000 0.0-38.1 U/mL High CA125 41.2 2303 Result Comment: Gerardo ECLIA methodology Performed at: [facility] [address] [id number] [place] Boss: Christiano Irvin PhD, Phone: [phone] Performed By: #### L500.4050 #### [facility] [place], [address] #### L3100.5000 #### [facility] (refer to report for specific site) refer to report for address and phone number CBC W/DIFF, AUTOMATED Collected: 03/24/2018 Status: F Source: [place] [place] 1:57 PM [facility] REPOSITORY Order Comment: Reason for Laboratory Test . TYPE CODE TESTS RESULT OUT OF RANGE REFERENCE UNITS LAB L100.1000 4.4-11.0 K/mm3 Normal WBC 6.5 LAB L100.1200 4.2-5.4 M/mm3 Normal RBC 4.26 LAB L100.1300 12.0-15.0 g/dl Normal HGB 12.7 LAB L100.1400 37-47 % Normal HCT 39.6 LAB L100.1500 81-99 fL Normal MCV 93.0 LAB L100.1600 27.0-32.0 pg Normal MCH 29.8 LAB L100.1700 32-36 g/gl Normal MCHC 32.1 LAB L100.1810 11.6-14.6 % High RDW CV 15.2 LAB L100.1820 35.1-43.9 fl High RDW SD 51.5 LAB L100.1900 150-450 K/mm3 Normal PLT 167 LAB L100.2000 6.2-12.0 fl Normal MPV 10.4 LAB L100.2100 47-70 % High NEUT% 72.1 LAB L100.2200 19-41 % Normal LY% 20.1 LAB L100.2300 0-10 % Normal MONO% 5.2 LAB L100.2400 0-5 % Normal EO% 2.1 LAB L100.2500 0-1 % Normal BASO% 0.3 LAB L100.2550 0.0-0.9 % Normal IM GRAN % 0.200 Result Comment: IG% - Immature Granulocytes (promyelocytes, myelocytes and metamyelocytes) > 1% indicates that a LEFT SHIFT is Present. LAB L100.2620 2.0-7.7 X10 3/uL Normal Absolute Neut 4.7 LAB L100.2720 0.83-4.51 X10 3/ul Normal Absolute Lymph 1.31 Performed By: #### L100.0100 #### [facility] [address] [place], [place], [address] CBC W/DIFF, AUTOMATED Collected: 03/17/2018 Status: F Source: [facility] [place] 1:46 PM [facility] REPOSITORY Order Comment: Reason for Laboratory Test . TYPE CODE TESTS RESULT OUT OF RANGE REFERENCE UNITS LAB L100.1000 4.4-11.0 K/mm3 Normal WBC 7.1 LAB L100.1200 4.2-5.4 M/mm3 Normal RBC 4.24 LAB L100.1300 12.0-15.0 g/dl Normal HGB 12.7 LAB L100.1400 37-47 % Normal HCT 39.1 LAB L100.1500 81-99 fL Normal MCV 92.2 LAB L100.1600 27.0-32.0 pg Normal MCH 30.0 LAB L100.1700 32-36 g/gl Normal MCHC 32.5 LAB L100.1810 11.6-14.6 % High RDW CV 15.0 LAB L100.1820 35.1-43.9 fl High RDW SD 50.8 LAB L100.1900 150-450 K/mm3 Normal PLT 177 LAB L100.2000 6.2-12.0 fl Normal MPV 10.1 LAB L100.2100 47-70 % Normal NEUT% 67.1 LAB L100.2200 19-41 % Normal LY% 24.9 LAB L100.2300 0-10 % Normal MONO% 5.2 LAB L100.2400 0-5 % Normal EO% 2.4 LAB L100.2500 0-1 % Normal BASO% 0.3 LAB L100.2550 0.0-0.9 % Normal IM GRAN % 0.100 Result Comment: IG% - Immature Granulocytes (promyelocytes, myelocytes and metamyelocytes) > 1% indicates that a LEFT SHIFT is Present. LAB L100.2620 2.0-7.7 X10 3/uL Normal Absolute Neut 4.7 LAB L100.2720 0.83-4.51 X10 3/ul Normal Absolute Lymph 1.76 Performed By: #### L100.0100 #### [facility] [address] [place], [address] ONCOLOGY VISIT REPORT Observed: 03/03/2018 Status: F Source: [facility] [place] 10:31 AM [facility] REPOSITORY [facility] [address] [place] [address] OFFICE VISIT Date of Service: 03/03/18 1022 MR#: [id number] Acct: [id number] Name: MULU ALEXANDER Rep #: [id number] : 1940 From: Ilan Berg MD Age/Sex: 77/F Location: OMD Status: Signed Subjective - Date of Service Date of Service:: 03/03/18 - Chief Complaint For Zejula therapy. - History of Present Illness Ms. Mulu Alexander is a 77-year-old woman who presented with abdominal pain. CT scan of the abdomen and pelvis on 05/26/2016 showed ascites, omental caking, bulky cervix, and an endometrial prominence suggestive of a gynecologic malignancy. Transvaginal ultrasound confirmed these findings. The patient was seen by Dr. Xiao. 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 CA125 on 07/14/2016 was 64,000. The patient had a PET CT on 07/15/2016, which showed hypermetabolic activity in the abdominopelvic mesentery, saundra hepatis and hepatic capsule with a single focus within the mid-abdominal retroperitoneum, as well as an incidental finding of pleural effusion. She received neoadjuvant chemotherapy with carboplatin and dose- dense Taxol x 3 cycles from 08/03/2016 to 09/28/2016. Underwent AYLA-BSO with debulking per Dr. Xiao on 10/20/2016, complicated by ileus. She received adjuvant Carboplatin and Dose Dense Taxol x 3 cycles from 12/08/2016 to 02/09/2017. She was seen at [facility], had a CTA scan to rule out PE on 04/14/2017 and was found a splenic mass. CA125 was 343 on 05/05/2017. CT c/a/p on 05/11/2017 was negative, PET/CT on 05/17/2017 showed solitary hypermetabolic activity in L paramedian upper pelvic area. She was seen by Dr. Xiao, chemotherapy was suggested. She started chemotherapy with Doxil 50mg/m2 on 06/22/2017. She had a CT after the 2nd cycle which showed stable disease. Developed pain and redness of the palms and mouth ulcers subsequent to cycle 2. Cycle 3 delayed by 2 weeks, administered 08/24/17 with 20% dose attenuation. CA125 on 10/12/2017 was 51. Completed 6 cycles Doxil on 11/23/17. PET/CT on 01/10/2018 showed no hypermetabolic activity. CA125 on 01/27/2018 was 38.8. She started Zejula 300mg on 01/23/2018, had general weakness with nausea so decreased it to 200mg. She remains on 200mg daily and comes for follow up. She still has nausea, takes antiemetics with relief.. - Past Medical/Social History Past Medical History Past Medical History: Anxiety,Asthma,Congestive heart failure,GERD, Hypertension,Pneumonia Cancer: Ovarian cancer Past Surgical History Surgical: Cholecystectomy,Hysterectomy,Port placement Other Surgical History: cardiac stents x2 Family History Paternal Past Medical History: Heart disease,Tuberculosis Maternal Past Medical History: Diabetes mellitus,Heart disease,Hypertension Social History Social History: No changes Smoking Status Never smoker Review of Systems Constitutional:: Denies: Fever, Sweats, Weight loss, Appetite change, Chills Cardiovascular:: Denies: Chest pain, Palpitations, Dyspnea on exertion, Orthopnea, PND, Shortness of breath Respiratory: Denies: Cough, Hemoptysis, Shortness of Breath, Wheezing Gastrointestinal:: Reports: Nausea Genitourinary: Denies: Dysuria, Hematuria, 15, Flank pain Musculoskeletal:: Denies: Back pain, Myalgia, Arthralgia Skin: Denies: Rash, Skin Changes, Wounds Neurological:: Denies: Headache, Dizziness, Visual changes, Tinnitus, Hearing loss Psychiatric: Denies: Anxiety, Depression, Homicidal Ideations, Suicidal Ideations Vital Signs Height 5 ft 4 in Weight: 94.347 kg Weight in Pounds 208.0 lbs Pulse Ox 96 - Physical Exam General: Alert, Oriented x3, No apparent distress, - - Port R IC area. HEENT: Atraumatic, PERRLA, EOMI, Normocephalic Oropharynx:: Dry mucosa Neck:: Supple, Trachea midline. Negative for: JVD, bilateral Cardiac:: Regular rate, Regular rhythm, Normal S1, Normal S2. Negative for: Murmur Lungs: Clear to auscultation, Excusion symmetrical. Negative for: Rhonchi, Wheezes Abdomen:: Bowel sounds x 4, Soft, Non-tender, Non-distended. Negative for: Hepatosplenomegaly Extremities:: Negative for: Cyanosis, Edema Neurological: Neuro grossly intact Skin:: Negative for: Lesions, Rash, Petechiae, Ecchymosis Psychiatric:: Appropriate affect, Euthymic Lymphatics:: Negative for: Cervical lymphadenopathy, Supraclavicular lymphadenopathy, Axillary lymphadenopathy Laboratory Data: Laboratory Tests WBC 5.6 (4.4-11.0) K/mm3 RBC 4.36 (4.2-5.4) M/mm3 Hgb 13.3 (12.0-15.0) g/dl Assessment and Plan Recurrent ovarian cancer with peritoneal metastases, finished Doxil on 11/23/2017. PET/CT on 01/10/2018 showed no evidence of disease. Started Zejula on 01/23/2018, now on 200mg. Nausea due to Zejula. Plan is to continue Zejula 200mg PO daily. Continue antiemetics prn. To monitor CBC weekly. RTC 4 wks with CBC, CMP. Medications: Prescriptions This Visit Medication Instructions Recorded Montelukast [Singulair] 10 mg PO DAILY PRN 05/05/17 Prochlorperazine Maleate 10 mg PO Q6H PRN PRN #30 tablet 06/22/17 Ondansetron HCl [Zofran] 4 mg PO Q8H PRN PRN #30 tab 08/24/17 Primary Care Provider: Abel Haddad Referring Provider: - Problem List (1) Ovarian metastasis Status: Chronic Code Visit Office Visits / Consults: [id number] OV L4 Est 03/03/18 1031 <Electronically signed by Ilan Berg MD> Date Ilan Berg MD Cosigner Signature: Date (if applicable) CC: CBC W/DIFF, AUTOMATED Collected: 03/03/2018 Status: F Source: [facility] 9:15 AM [facility] REPOSITORY Order Comment: Reason for Laboratory Test . TYPE CODE TESTS RESULT OUT OF RANGE REFERENCE UNITS LAB L100.1000 4.4-11.0 K/mm3 Normal WBC 5.6 LAB L100.1200 4.2-5.4 M/mm3 Normal RBC 4.36 LAB L100.1300 12.0-15.0 g/dl Normal HGB 13.3 LAB L100.1400 37-47 % Normal HCT 40.1 LAB L100.1500 81-99 fL Normal MCV 92.0 LAB L100.1600 27.0-32.0 pg Normal MCH 30.5 LAB L100.1700 32-36 g/gl Normal MCHC 33.2 LAB L100.1810 11.6-14.6 % High RDW CV 14.7 LAB L100.1820 35.1-43.9 fl High RDW SD 48.2 LAB L100.1900 150-450 K/mm3 Normal PLT 172 LAB L100.2000 6.2-12.0 fl Normal MPV 10.5 LAB L100.2100 47-70 % Normal NEUT% 68.8 LAB L100.2200 19-41 % Normal LY% 22.6 LAB L100.2300 0-10 % Normal MONO% 5.7 LAB L100.2400 0-5 % Normal EO% 2.2 LAB L100.2500 0-1 % Normal BASO% 0.7 LAB L100.2550 0.0-0.9 % Normal IM GRAN % 0.000 Result Comment: IG% - Immature Granulocytes (promyelocytes, myelocytes and metamyelocytes) > 1% indicates that a LEFT SHIFT is Present. LAB L100.2620 2.0-7.7 X10 3/uL Normal Absolute Neut 3.8 LAB L100.2720 0.83-4.51 X10 3/ul Normal Absolute Lymph 1.26 Performed By: #### L100.0100 #### [facility] [place], [address] COMPREHENSIVE METABOLIC Collected: 03/03/2018 Status: F Source: [facility] 9:15 AM [facility] REPOSITORY Order Comment: Reason for Laboratory Test . TYPE CODE TESTS RESULT OUT OF RANGE REFERENCE UNITS LAB L501.0100 74-106 mg/dL High GLU 193 Result Comment: Fasting Glucose result greater than or equal to 126 mg/dL suggests DIABETES MELLITUS per A.D.A. criteria. Please note revised GLUCOSE reference range effective 2017. LAB L501.1000 7-18 mg/dL Normal BUN 14 LAB L501.1100 0.55-1.02 mg/dL High CREAT,SERUM 1.07 Result Comment: The validity of the calculated GFR AND GFRAA in patients over 70 years has not been determined. Clinical correlation is essential. LAB L501.1110 >60 mL/min Low EST GFR 53 Result Comment: Non- GFR Calc LAB L501.1115 >60 mL/min Normal EST GFR - AA 64 Result Comment: GFR Calc LAB L501.1255 ml/min Normal Estimated CRCL 39.23 LAB L501.1300 10-20 RATIO Normal BUN/CRE 13.1 LAB L501.1500 6.4-8. g/dL Normal 2 T PROT 6.6 LAB L501.1800 3.2-5. g/dL Normal 0 ALB 3.4 LAB L501.1950 2.2-4. g/dL Normal 2 GLOB 3.2 LAB L501.2000 0.9-2. RATIO Normal 4 A/G 1.1 LAB L501.2200 8.5-10 mg/dL Normal .1 CA 8.8 LAB L501.4100 15-37 U/L Normal AST 20 LAB L501.4305 45-117 U/L High ALK P 178 LAB L501.4405 13-56 U/L Normal ALT 25 LAB L501.4600 0.20-1 mg/dL Normal .00 T BILI 0.30 LAB L501.5300 136-14 mmol/L Normal 5 NA 137 LAB L501.5600 3.5-5. mmol/L Normal 1 K 3.8 LAB L501.5900 98-107 mmol/L Normal CL 101 LAB L501.6100 21.0-3 mmol/L Normal 2.0 CO2 27.0 LAB L501.6200 5-15 Normal GAP 9 Performed By: #### L500.4050 #### [facility] [address] [place], [address] CBC W/DIFF, AUTOMATED Collected: 02/24/2018 Status: F Source: [facility] 10:57 AM [facility] REPOSITORY Order Comment: Reason for Laboratory Test . TYPE CODE TESTS RESULT OUT OF RANGE REFERENCE UNITS LAB L100.1000 4.4-11.0 K/mm3 Normal WBC 4.6 LAB L100.1200 4.2-5.4 M/mm3 Normal RBC 4.31 LAB L100.1300 12.0-15.0 g/dl Normal HGB 12.8 LAB L100.1400 37-47 % Normal HCT 39.8 LAB L100.1500 81-99 fL Normal MCV 92.3 LAB L100.1600 27.0-32.0 pg Normal MCH 29.7 LAB L100.1700 32-36 g/gl Normal MCHC 32.2 LAB L100.1810 11.6-14.6 % Normal RDW CV 14.6 LAB L100.1820 35.1-43.9 fl High RDW SD 49.3 LAB L100.1900 150-450 K/mm3 Normal PLT 171 LAB L100.2000 6.2-12.0 fl Normal MPV 10.5 LAB L100.2100 47-70 % Normal NEUT% 63.4 LAB L100.2200 19-41 % Normal LY% 28.2 LAB L100.2300 0-10 % Normal MONO% 5.0 LAB L100.2400 0-5 % Normal EO% 2.8 LAB L100.2500 0-1 % Normal BASO% 0.6 LAB L100.2550 0.0-0.9 % Normal IM GRAN % 0.000 Result Comment: IG% - Immature Granulocytes (promyelocytes, myelocytes and metamyelocytes) > 1% indicates that a LEFT SHIFT is Present. LAB L100.2620 2.0-7.7 X10 3/uL Normal Absolute Neut 2.9 LAB L100.2720 0.83-4.51 X10 3/ul Normal Absolute Lymph 1.31 Performed By: #### L100.0100 #### [facility] [place], [address] CBC W/DIFF, AUTOMATED Collected: 02/17/2018 Status: F Source: [facility] 10:56 AM [facility] REPOSITORY Order Comment: Reason for Laboratory Test . TYPE CODE TESTS RESULT OUT OF RANGE REFERENCE UNITS LAB L100.1000 4.4-11.0 K/mm3 Normal WBC 5.4 LAB L100.1200 4.2-5.4 M/mm3 Normal RBC 4.22 LAB L100.1300 12.0-15.0 g/dl Normal HGB 12.6 LAB L100.1400 37-47 % Normal HCT 39.0 LAB L100.1500 81-99 fL Normal MCV 92.4 LAB L100.1600 27.0-32.0 pg Normal MCH 29.9 LAB L100.1700 32-36 g/gl Normal MCHC 32.3 LAB L100.1810 11.6-14.6 % Normal RDW CV 14.4 LAB L100.1820 35.1-43.9 fl High RDW SD 48.4 LAB L100.1900 150-450 K/mm3 Normal PLT 155 LAB L100.2000 6.2-12.0 fl Normal MPV 10.3 LAB L100.2100 47-70 % High NEUT% 70.7 LAB L100.2200 19-41 % Normal LY% 21.1 LAB L100.2300 0-10 % Normal MONO% 5.9 LAB L100.2400 0-5 % Normal EO% 1.9 LAB L100.2500 0-1 % Normal BASO% 0.4 LAB L100.2550 0.0-0.9 % Normal IM GRAN % 0.000 Result Comment: IG% - Immature Granulocytes (promyelocytes, myelocytes and metamyelocytes) > 1% indicates that a LEFT SHIFT is Present. LAB L100.2620 2.0-7.7 X10 3/uL Normal Absolute Neut 3.8 LAB L100.2720 0.83-4.51 X10 3/ul Normal Absolute Lymph 1.14 Performed By: #### L100.0100 #### [facility] [address] [place], [address] CBC W/DIFF, AUTOMATED Collected: 02/10/2018 Status: F Source: [facility] 10:50 AM [facility] REPOSITORY Order Comment: Reason for Laboratory Test . TYPE CODE TESTS RESULT OUT OF RANGE REFERENCE UNITS LAB L100.1000 4.4-11.0 K/mm3 Normal WBC 7.0 LAB L100.1200 4.2-5.4 M/mm3 Normal RBC 4.32 LAB L100.1300 12.0-15.0 g/dl Normal HGB 12.8 LAB L100.1400 37-47 % Normal HCT 39.7 LAB L100.1500 81-99 fL Normal MCV 91.9 LAB L100.1600 27.0-32.0 pg Normal MCH 29.6 LAB L100.1700 32-36 g/gl Normal MCHC 32.2 LAB L100.1810 11.6-14.6 % Normal RDW CV 14.2 LAB L100.1820 35.1-43.9 fl High RDW SD 47.7 LAB L100.1900 150-450 K/mm3 Normal PLT 163 LAB L100.2000 6.2-12.0 fl Normal MPV 10.1 LAB L100.2100 47-70 % Normal NEUT% 66.3 LAB L100.2200 19-41 % Normal LY% 24.9 LAB L100.2300 0-10 % Normal MONO% 6.7 LAB L100.2400 0-5 % Normal EO% 1.7 LAB L100.2500 0-1 % Normal BASO% 0.3 LAB L100.2550 0.0-0.9 % Normal IM GRAN % 0.100 Result Comment: IG% - Immature Granulocytes (promyelocytes, myelocytes and metamyelocytes) > 1% indicates that a LEFT SHIFT is Present. LAB L100.2620 2.0-7.7 X10 3/uL Normal Absolute Neut 4.6 LAB L100.2720 0.83-4.51 X10 3/ul Normal Absolute Lymph 1.74 Performed By: #### L100.0100 #### [facility] [address] [place], [address] ONCOLOGY VISIT REPORT Observed: 02/03/2018 Status: F Source: [facility] 10:29 AM [facility] REPOSITORY [facility] [address] [place] [address] OFFICE VISIT Date of Service: 02/03/18 1018 MR#: [id number] Acct: [id number] Name: MULU ALEXANDER Rep #: [id number] : 1940 From: Ilan Berg MD Age/Sex: 77/F Location: OMD Status: Signed Subjective - Date of Service Date of Service:: 02/03/18 - Chief Complaint For Zejula therapy. - History of Present Illness Ms. Mulu Alexander is a 77-year-old woman who presented with abdominal pain. CT scan of the abdomen and pelvis on 05/26/2016 showed ascites, omental caking, bulky cervix, and an endometrial prominence suggestive of a gynecologic malignancy. Transvaginal ultrasound confirmed these findings. The patient was seen by Dr. Xiao. 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 CA125 on 07/14/2016 was 64,000. The patient had a PET CT on 07/15/2016, which showed hypermetabolic activity in the abdominopelvic mesentery, saundra hepatis and hepatic capsule with a single focus within the mid-abdominal retroperitoneum, as well as an incidental finding of pleural effusion. She received neoadjuvant chemotherapy with carboplatin and dose- dense Taxol x 3 cycles from 08/03/2016 to 09/28/2016. Underwent AYLA-BSO with debulking per Dr. Xiao on 10/20/2016, complicated by ileus. She received adjuvant Carboplatin and Dose Dense Taxol x 3 cycles from 12/08/2016 to 02/09/2017. She was seen at [facility], had a CTA scan to rule out PE on 04/14/2017 and was found a splenic mass. CA125 was 343 on 05/05/2017. CT c/a/p on 05/11/2017 was negative, PET/CT on 05/17/2017 showed solitary hypermetabolic activity in L paramedian upper pelvic area. She was seen by Dr. Xiao, chemotherapy was suggested. She started chemotherapy with Doxil 50mg/m2 on 06/22/2017. She had a CT after the 2nd cycle which showed stable disease. Developed pain and redness of the palms and mouth ulcers subsequent to cycle 2. Cycle 3 delayed by 2 weeks, administered 08/24/17 with 20% dose attenuation. CA125 on 10/12/2017 was 51. Completed 6 cycles Doxil on 11/23/17. PET/CT on 01/10/2018 showed no hypermetabolic activity. She started Zejula 300mg, had general weakness, nausea so decreased it to 200mg and comes for follow up. She feels well now. - Past Medical/Social History Past Medical History Past Medical History: Anxiety,Asthma,Congestive heart failure,GERD, Hypertension,Pneumonia Cancer: Ovarian cancer Past Surgical History Surgical: Cholecystectomy,Hysterectomy,Port placement Other Surgical History: cardiac stents x2 Family History Paternal Past Medical History: Heart disease,Tuberculosis Maternal Past Medical History: Diabetes mellitus,Heart disease,Hypertension Social History Social History: No changes Smoking Status Never smoker Review of Systems Constitutional:: Denies: Fever, Sweats, Weight loss, Appetite change, Chills Cardiovascular:: Denies: Chest pain, Palpitations, Dyspnea on exertion, Orthopnea, PND, Shortness of breath Respiratory: Denies: Cough, Hemoptysis, Shortness of Breath, Wheezing Gastrointestinal:: Denies: Abdominal pain, Nausea, Vomiting, Diarrhea, Constipation, Hematochezia Genitourinary: Denies: Dysuria, Hematuria, 15, Flank pain Musculoskeletal:: Denies: Back pain, Myalgia, Arthralgia Skin: Denies: Rash, Skin Changes, Wounds Neurological:: Denies: Headache, Dizziness, Visual changes, Tinnitus, Hearing loss Psychiatric: Denies: Anxiety, Depression, Homicidal Ideations, Suicidal Ideations Vital Signs Height 5 ft 4 in Weight: 95.708 kg Weight in Pounds 211.0 lbs Pulse Ox 98 - Physical Exam General: Alert, Oriented x3, No apparent distress HEENT: Atraumatic, PERRLA, EOMI, Normocephalic Oropharynx:: Dry mucosa Neck:: Supple, Trachea midline. Negative for: JVD, bilateral Cardiac:: Regular rate, Regular rhythm, Normal S1, Normal S2. Negative for: Murmur Lungs: Clear to auscultation, Excusion symmetrical. Negative for: Rhonchi, Wheezes Extremities:: Negative for: Cyanosis, Edema Laboratory Data: Laboratory Tests WBC 5.5 (4.4-11.0) K/mm3 RBC 4.19 L (4.2-5.4) M/mm3 Hgb 12.5 (12.0-15.0) g/dl Assessment and Plan Recurrent ovarian cancer with peritoneal metastases, finished Doxil on 11/23/2017. PET/CT on 01/10/2018 showed no evidence of disease. Started Zejula on 01/23/2018, now on 200mg because of general weakness. Plan is to continue Zejula 200mg PO daily. To monitor CBC weekly. RTC 4 wks with CBC, CMP. Medications: Prescriptions This Visit Medication Instructions Recorded Montelukast [Singulair] 10 mg PO DAILY PRN 05/05/17 Prochlorperazine Maleate 10 mg PO Q6H PRN PRN #30 tablet 06/22/17 Ondansetron HCl [Zofran] 4 mg PO Q8H PRN PRN #30 tab 08/24/17 Primary Care Provider: Abel Haddad Referring Provider: - Problem List (1) Ovarian metastasis Status: Chronic Code Visit Office Visits / Consults: 92257 OV L3 Est 02/03/18 1029 <Electronically signed by Ilan Berg MD> Date Ilan Berg MD Cosigner Signature: Date (if applicable) CC: CBC W/DIFF, AUTOMATED Collected: 02/03/2018 Status: F Source: [facility] 9:17 AM [facility] [place] REPOSITORY Order Comment: Reason for Laboratory Test . TYPE CODE TESTS RESULT OUT OF RANGE REFERENCE UNITS LAB L100.1000 4.4-11.0 K/mm3 Normal WBC 5.5 LAB L100.1200 4.2-5.4 M/mm3 Low RBC 4.19 LAB L100.1300 12.0-15.0 g/dl Normal HGB 12.5 LAB L100.1400 37-47 % Normal HCT 38.6 LAB L100.1500 81-99 fL Normal MCV 92.1 LAB L100.1600 27.0-32.0 pg Normal MCH 29.8 LAB L100.1700 32-36 g/gl Normal MCHC 32.4 LAB L100.1810 11.6-14.6 % Normal RDW CV 14.0 LAB L100.1820 35.1-43.9 fl High RDW SD 46.7 LAB L100.1900 150-450 K/mm3 Normal PLT 154 LAB L100.2000 6.2-12.0 fl Normal MPV 10.5 LAB L100.2100 47-70 % Normal NEUT% 65.6 LAB L100.2200 19-41 % Normal LY% 27.3 LAB L100.2300 0-10 % Normal MONO% 5.3 LAB L100.2400 0-5 % Normal EO% 1.6 LAB L100.2500 0-1 % Normal BASO% 0.2 LAB L100.2550 0.0-0.9 % Normal IM GRAN % 0.000 Result Comment: IG% - Immature Granulocytes (promyelocytes, myelocytes and metamyelocytes) > 1% indicates that a LEFT SHIFT is Present. LAB L100.2620 2.0-7.7 X10 3/uL Normal Absolute Neut 3.6 LAB L100.2720 0.83-4.51 X10 3/ul Normal Absolute Lymph 1.50 Performed By: #### L100.0100, L500.4050 #### [facility] [address] [place], [place], [address] COMPREHENSIVE METABOLIC Collected: 02/03/2018 Status: F Source: [facility] 9:17 AM [facility] REPOSITORY Order Comment: Reason for Laboratory Test . TYPE CODE TESTS RESULT OUT OF RANGE REFERENCE UNITS LAB L501.0100 74-106 mg/dL High GLU 191 Result Comment: Fasting Glucose result greater than or equal to 126 mg/dL suggests DIABETES MELLITUS per A.D.A. criteria. Please note revised GLUCOSE reference range effective 2017. LAB L501.1000 7-18 mg/dL Normal BUN 16 LAB L501.1100 0.55-1.02 mg/dL Normal CREAT,SERUM 0.98 Result Comment: The validity of the calculated GFR AND GFRAA in patients over 70 years has not been determined. Clinical correlation is essential. LAB L501.1110 >60 mL/min Low EST GFR 59 Result Comment: Non- GFR Calc LAB L501.1115 >60 mL/min Normal EST GFR - AA 71 Result Comment: GFR Calc LAB L501.1255 ml/min Normal Estimated CRCL 42.83 LAB L501.1300 10-20 RATIO Normal BUN/CRE 16.3 LAB L501.1500 6.4-8. g/dL Normal 2 T PROT 6.5 LAB L501.1800 3.2-5. g/dL Normal 0 ALB 3.4 LAB L501.1950 2.2-4. g/dL Normal 2 GLOB 3.1 LAB L501.2000 0.9-2. RATIO Normal 4 A/G 1.1 LAB L501.2200 8.5-10 mg/dL Normal .1 CA 9.1 LAB L501.4100 15-37 U/L Normal AST 16 LAB L501.4305 45-117 U/L High ALK P 143 LAB L501.4405 13-56 U/L Normal ALT 24 LAB L501.4600 0.20-1 mg/dL Normal .00 T BILI 0.50 LAB L501.5300 136-14 mmol/L Normal 5 NA 138 LAB L501.5600 3.5-5. mmol/L Normal 1 K 4.0 LAB L501.5900 98-107 mmol/L Normal CL 103 LAB L501.6100 21.0-3 mmol/L Normal 2.0 CO2 29.0 LAB L501.6200 5-15 Normal GAP 6 Performed By: #### L100.0100, L500.4050 #### [facility] [address] [place], [address] COMPREHENSIVE METABOLIC Collected: 01/27/2018 Status: F Source: [facility] 9:05 AM [facility] REPOSITORY Order Comment: RESULT(S) PREVIOUSLY REPORTED ON MANUAL REQUISITION DURING DOWNTIME. TYPE CODE TESTS RESULT OUT OF RANGE REFERENCE UNITS LAB L501.0100 74-106 mg/dL High GLU 156 Result Comment: Fasting Glucose result greater than or equal to 126 mg/dL suggests DIABETES MELLITUS per A.D.A. criteria. Please note revised GLUCOSE reference range effective 2017. LAB L501.1000 7-18 mg/dL Normal BUN 13 LAB L501.1100 0.55-1.02 mg/dL Normal CREAT,SERUM 1.01 Result Comment: The validity of the calculated GFR AND GFRAA in patients over 70 years has not been determined. Clinical correlation is essential. LAB L501.1110 >60 mL/min Low EST GFR 57 LAB L501.1115 >60 mL/min EST GFR Normal - AA 69 LAB L501.1255 ml/min Normal Estimated CRCL 41.56 LAB L501.1300 10-20 RATIO BUN/CRE Normal 12.9 LAB L501.1500 6.4-8.2 g/dL T PROT Normal 6.4 LAB L501.1800 3.2-5.0 g/dL ALB Normal 3.3 LAB L501.1950 2.2-4.2 g/dL GLOB Normal 3.1 LAB L501.2000 0.9-2.4 RATIO A/G Normal 1.1 LAB L501.2200 8.5-10.1 mg/dL CA Normal 9.0 LAB L501.4100 15-37 U/L AST Normal 18 LAB L501.4305 45-117 U/L High ALK P 123 LAB L501.4405 13-56 U/L ALT Normal 25 LAB L501.4600 0.20-1.00 mg/dL T BILI Normal 0.30 LAB L501.5300 136-145 mmol/L NA Normal 140 LAB L501.5600 3.5-5.1 mmol/L K Normal 4.0 LAB L501.5900 98-107 mmol/L CL Normal 103 LAB L501.6100 21.0-32.0 mmol/L CO2 Normal 29.0 LAB L501.6200 5-15 GAP Normal 8 Performed By: #### L500.4050 #### [facility] [address] [place], [place], [address] CBC W/DIFF, AUTOMATED Collected: 01/27/2018 Status: F Source: [facility] 9:05 AM [facility] REPOSITORY Order Comment: RESULT(S) PREVIOUSLY REPORTED ON MANUAL REQUISITION DURING DOWNTIME. TYPE CODE TESTS RESULT OUT OF RANGE REFERENCE UNITS LAB L100.1000 4.4-11.0 K/mm3 Normal WBC 6.5 LAB L100.1200 4.2-5.4 M/mm3 Low RBC 4.11 LAB L100.1300 12.0-15.0 g/dl Normal HGB 12.7 LAB L100.1400 37-47 % Normal HCT 38.1 LAB L100.1500 81-99 fL Low MCV 32.7 LAB L100.1600 27.0-32.0 pg Normal MCH 30.9 LAB L100.1700 32-36 g/gl Normal MCHC 33.3 LAB L100.1810 11.6-14.6 % Normal RDW CV 13.7 LAB L100.1820 35.1-43.9 fl High RDW SD 45.7 LAB L100.1900 150-450 K/mm3 Normal PLT 167 LAB L100.2000 6.2-12.0 fl Normal MPV 11.3 LAB L100.2100 47-70 % Normal NEUT% 69.6 LAB L100.2200 19-41 % Normal LY% 21.2 LAB L100.2300 0-10 % Normal MONO% 7.2 LAB L100.2400 0-5 % Normal EO% 1.7 LAB L100.2500 0-1 % Normal BASO% 0.3 LAB L100.2550 0.0-0.9 % Normal IM GRAN % 0.000 Result Comment: IG% - Immature Granulocytes (promyelocytes, myelocytes and metamyelocytes) > 1% indicates that a LEFT SHIFT is Present. LAB L100.2620 2.0-7.7 X10 3/uL Normal Absolute Neut 4.5 LAB L100.2720 0.83-4.51 X10 3/ul Normal Absolute Lymph 1.38 Performed By: #### L100.0100 #### [facility] [address] [place], [address] CANCER ANTIGEN 125 Collected: 01/27/2018 Status: F Source: [facility] 9:05 AM [facility] REPOSITORY Order Comment: Specimen Comment: A duplicate report has been generated due to demographic Specimen Comment: updates. TYPE CODE TESTS RESULT OUT OF RANGE REFERENCE UNITS LAB L3100.5000 0.0-38.1 U/mL High CA125 38.8 2303 Result Comment: Gerardo ECLIA methodology Performed at: - [facility] [address] [id number] [place] Boss: Christiano Irvin PhD, Phone: [phone] Performed By: #### L3100.5000 #### [facility] (refer to report for specific site) refer to report for address and phone number ONCOLOGY VISIT REPORT Observed: 01/13/2018 Status: F Source: [facility] 12:21 PM [facility] REPOSITORY [facility] [address] [place] [address] OFFICE VISIT Date of Service: 01/13/18 0951 MR#: [id number] Acct: [id number] Name: MLUU ALEXANDER Rep #: [id number] : 1940 From: Ilan Berg MD Age/Sex: 77/F Location: ONC Status: Signed Subjective - Date of Service Date of Service:: 01/13/18 - Chief Complaint For Zejula therapy. - History of Present Illness Ms. Mulu Alexander is a 77-year-old woman who presented with abdominal pain. CT scan of the abdomen and pelvis on 05/26/2016 showed ascites, omental caking, bulky cervix, and an endometrial prominence suggestive of a gynecologic malignancy. Transvaginal ultrasound confirmed these findings. The patient was seen by Dr. Xiao. 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 CA125 on 07/14/2016 was 64,000. The patient had a PET CT on 07/15/2016, which showed hypermetabolic activity in the abdominopelvic mesentery, saundra hepatis and hepatic capsule with a single focus within the mid-abdominal retroperitoneum, as well as an incidental finding of pleural effusion. She received neoadjuvant chemotherapy with carboplatin and dose- dense Taxol x 3 cycles from 08/03/2016 to 09/28/2016. Underwent AYLA-BSO with debulking per Dr. Xiao on 10/20/2016, complicated by ileus. She received adjuvant Carboplatin and Dose Dense Taxol x 3 cycles from 12/08/2016 to 02/09/2017. She was seen at [facility], had a CTA scan to rule out PE on 04/14/2017 and was found a splenic mass. CA125 was 343 on 05/05/2017. CT c/a/p on 05/11/2017 was negative, PET/CT on 05/17/2017 showed solitary hypermetabolic activity in L paramedian upper pelvic area. She was seen by Dr. Xiao, chemotherapy was suggested. She started chemotherapy with Doxil 50mg/m2 on 06/22/2017. She had a CT after the 2nd cycle which showed stable disease. Developed pain and redness of the palms and mouth ulcers subsequent to cycle 2. Cycle 3 delayed by 2 weeks, administered 08/24/17 with 20% dose attenuation. CA125 on 10/12/2017 was 51. Completed 6 cycles Doxil on 11/23/17. She had a PET/CT and comes for follow up. - Past Medical/Social History Past Medical History Past Medical History: Anxiety,Asthma,Congestive heart failure,GERD, Hypertension,Pneumonia Cancer: Ovarian cancer Past Surgical History Surgical: Cholecystectomy,Hysterectomy,Port placement Other Surgical History: cardiac stents x2 Family History Paternal Past Medical History: Heart disease,Tuberculosis Maternal Past Medical History: Diabetes mellitus,Heart disease,Hypertension Social History Social History: No changes Smoking Status Never smoker Review of Systems Constitutional:: Denies: Fever, Sweats, Weight loss, Appetite change, Chills Cardiovascular:: Denies: Chest pain, Palpitations, Dyspnea on exertion, Orthopnea, PND, Shortness of breath Respiratory: Denies: Cough, Hemoptysis, Shortness of Breath, Wheezing Gastrointestinal:: Denies: Abdominal pain, Nausea, Vomiting, Diarrhea, Constipation, Hematochezia Genitourinary: Denies: Dysuria, Hematuria, 15, Flank pain Musculoskeletal:: Denies: Back pain, Myalgia, Arthralgia Skin: Denies: Rash, Skin Changes, Wounds Neurological:: Denies: Headache, Dizziness, Visual changes, Tinnitus, Hearing loss Psychiatric: Denies: Anxiety, Depression, Homicidal Ideations, Suicidal Ideations Vital Signs Height 5 ft 4 in Weight: 96.071 kg Weight in Pounds 211.8 lbs Pulse Ox 97 - Physical Exam General: Alert, Oriented x3, No apparent distress Laboratory Data: Laboratory Tests WBC 6.0 (4.4-11.0) K/mm3 RBC 4.11 L (4.2-5.4) M/mm3 Hgb 12.5 (12.0-15.0) g/dl Diagnostic Data: 01/10/2018 PET/CT scan reviewed, no hypermetabolic activity. Assessment and Plan Recurrent ovarian cancer with peritoneal metastases, finished Doxil on 11/23/2017. PET/CT on 01/10/2018 show no evidence of disease. Discussed therapy with Zejula after chemotherapy. Pt agrees and wants to start on January 23, 2018. Plan is to start Zejula 300mg PO daily on 01/23/2018. To monitor CBC weekly. RTC 6 wks with CBC, CMP. Medications: Prescriptions This Visit Medication Instructions Recorded Montelukast [Singulair] 10 mg PO DAILY PRN 05/05/17 Prochlorperazine Maleate 10 mg PO Q6H PRN PRN #30 tablet 06/22/17 Ondansetron HCl [Zofran] 4 mg PO Q8H PRN PRN #30 tab 08/24/17 Primary Care Provider: Abel Haddad Referring Provider: - Problem List (1) Ovarian metastasis Status: Chronic Code Visit Office Visits / Consults: 88020 OV L3 Est 01/13/18 1221 <Electronically signed by Ilan Berg MD> Date Ilan Berg MD Cosigner Signature: Date (if applicable) CC: CBC W/DIFF, AUTOMATED Collected: 01/13/2018 Status: F Source: [facility] 9:10 AM [facility] REPOSITORY Order Comment: Reason for Laboratory Test . TYPE CODE TESTS RESULT OUT OF RANGE REFERENCE UNITS LAB L100.1000 4.4-11.0 K/mm3 Normal WBC 6.0 LAB L100.1200 4.2-5.4 M/mm3 Low RBC 4.11 LAB L100.1300 12.0-15.0 g/dl Normal HGB 12.5 LAB L100.1400 37-47 % Normal HCT 37.8 LAB L100.1500 81-99 fL Normal MCV 92.0 LAB L100.1600 27.0-32.0 pg Normal MCH 30.4 LAB L100.1700 32-36 g/gl Normal MCHC 33.1 LAB L100.1810 11.6-14.6 % Normal RDW CV 14.5 LAB L100.1820 35.1-43.9 fl High RDW SD 49.2 LAB L100.1900 150-450 K/mm3 Normal PLT 169 LAB L100.2000 6.2-12.0 fl Normal MPV 10.2 LAB L100.2100 47-70 % Normal NEUT% 64.6 LAB L100.2200 19-41 % Normal LY% 24.5 LAB L100.2300 0-10 % Normal MONO% 8.2 LAB L100.2400 0-5 % Normal EO% 2.2 LAB L100.2500 0-1 % Normal BASO% 0.3 LAB L100.2550 0.0-0.9 % Normal IM GRAN % 0.200 Result Comment: IG% - Immature Granulocytes (promyelocytes, myelocytes and metamyelocytes) > 1% indicates that a LEFT SHIFT is Present. LAB L100.2620 2.0-7.7 X10 3/uL Normal Absolute Neut 3.9 LAB L100.2720 0.83-4.51 X10 3/ul Normal Absolute Lymph 1.46 Performed By: #### L100.0100 #### [facility] [address] [place], [address] COMPREHENSIVE METABOLIC Collected: 01/13/2018 Status: F Source: [facility] 9:10 AM [facility] REPOSITORY Order Comment: Reason for Laboratory Test . TYPE CODE TESTS RESULT OUT OF RANGE REFERENCE UNITS LAB L501.0100 74-106 mg/dL High GLU 115 Result Comment: Fasting Glucose result from 100 to 125 mg/dL suggests IMPAIRED HOMEOSTASIS per A.D.A. criteria. Please note revised GLUCOSE reference range effective 2017. LAB L501.1000 7-18 mg/dL Normal BUN 14 LAB L501.1100 0.55-1.02 mg/dL Normal CREAT,SERUM 0.80 Result Comment: The validity of the calculated GFR AND GFRAA in patients over 70 years has not been determined. Clinical correlation is essential. LAB L501.1110 >60 mL/min Normal EST GFR 74 Result Comment: Non- GFR Calc LAB L501.1115 >60 mL/min Normal EST GFR - AA 90 Result Comment: GFR Calc LAB L501.1255 ml/min Normal Estimated CRCL 52.47 LAB L501.1300 10-20 RATIO Normal BUN/CRE 17.5 LAB L501.1500 6.4-8. g/dL Low 2 T PROT 6.3 LAB L501.1800 3.2-5. g/dL Normal 0 ALB 3.3 LAB L501.1950 2.2-4. g/dL Normal 2 GLOB 3.0 LAB L501.2000 0.9-2. RATIO Normal 4 A/G 1.1 LAB L501.2200 8.5-10 mg/dL Normal .1 CA 9.0 LAB L501.4100 15-37 U/L Normal AST 22 LAB L501.4305 45-117 U/L Normal ALK P 108 LAB L501.4405 13-56 U/L Normal ALT 27 LAB L501.4600 0.20-1 mg/dL Normal .00 T BILI 0.40 LAB L501.5300 136-14 mmol/L Normal 5 NA 141 LAB L501.5600 3.5-5. mmol/L Normal 1 K 4.0 LAB L501.5900 98-107 mmol/L Normal CL 105 LAB L501.6100 21.0-3 mmol/L Normal 2.0 CO2 28.0 LAB L501.6200 5-15 Normal GAP 8 Performed By: #### L500.4050 #### [facility] [address] [facility] [place], [place], [address] PET/CT TUMOR BASE Observed: 01/10/2018 Status: F Source: [facility]IGH SUBS 5:42 AM [facility] REPOSITORY [facility] Imaging Services [address] [place] [address] PET/CT Tumor Base -Thigh Subs MR#: [id number] Acct: [id number] Name: MULU ALEXANDER Rep #: [id number] : 1940 F 77 From: Edwar Owens DO PCP: Abel Haddad MD Status: REG CLI Study: PET/CT Tumor Base -Thigh Subs Date of Exam: 01/10/18 Exam# [id number] Ordering Dr: Elly Nguyen LOSS PREVENTION AUDITOR-C EXAMINATION: FDG PET CT INDICATIONS: A 77-year-old female with reported history of ovarian carcinoma presenting for restaging examination. COMPARISON EXAMINATION: CT of the chest, abdomen and pelvis reports dated 10/07/17, prior FDG PET study dated 05/17/17. NON-INDEX LESION SIZE SUV INTERPRETATION PERSISTENT: Bilateral thoracic corrie-hilum 1.8 (max) compared to 1.9, 05/17/17 Quantitative criteria for viable neoplasm are not fulfilled, no definitive interval change TECHNIQUE: Following the intravenous administration of 15 mCi of F-18 deoxyglucose, multiplanar image acquisitions of the neck, chest, abdomen and pelvis to level of mid thigh, obtained at one hour post radiopharmaceutical administration contemporaneously interpreted with the current CT of the neck, chest, abdomen and pelvis to level of mid thigh, dated 01/10/[address] of the chest, abdomen and pelvis reports dated 10/07/17, prior FDG PET study dated 05/17/17 reveal: FINDINGS: 1. Mild increased glucose metabolism is redefined in the bilateral thoracic perihilum generating a calculated maximum standard uptake value of 1.8 compared to 1.9 defined on the FDG PET study dated 05/17/17 2. Normal physiologic distribution of the radiopharmaceutical is apparent in the hepatic (3.4/2.4) and splenic parenchyma, both renal units, bladder and visualized intestinal tract. There is uniform distribution of the radiopharmaceutical concentration compared on the cerebellar hemispheres and cerebral cortex. Diffuse intestinal tract activity is noted throughout all four quadrants of the abdominal-pelvic retroperitoneum, mesentery consistent with normal physiologic distribution of the radiopharmaceutical. The previously identified hypermetabolic focus noted in the left upper pelvic mesentery defined on the FDG PET study dated 05/17/17 is not apparent on the current examination. Pertinent CT findings are as follows. CHEST: Equr-L-Upez-MediPort placement is noted. Atherosclerotic calcification is defined in the thoracic aorta without evidence of dilatation, aneurysm formation. Coronary arterial calcification is observed. Right-left axillary soft tissue densities with fatty hilus formation are non-glucose avid. There are no parenchymal densities-nodules noted in the right-left hemithorax manifesting quantitatively significant increased glucose metabolism. ABDOMEN AND PELVIS: Atherosclerotic calcification is defined in the abdominal aorta without evidence of dilatation, aneurysm formation. Pelvic arterial calcification is observed. A small fat-containing inguinal hernia is noted. The gallbladder appears surgically absent. Right- left inguinal soft tissue densities are ametabolic. The uterus is not identified. SKELETAL: Degenerative changes defined in the cervical, thoracic and lumbar spine demonstrate no evidence for glucose hypermetabolism. Diffuse demineralization is noted throughout the axial skeletal structures. PET/PET/CT Tumor Base -Thigh Subs IMPRESSION: 1. NEGATIVE EXAMINATION. There is no definitive quantitative scintigraphic evidence of recurrent-metastatic viable neoplasm. 2. There is interim metabolic resolution of the previously identified upper pelvic mesenteric hypermetabolic focus. 3. Persistent increased glucose concentration noted in the bilateral thoracic perihilum does not fulfill quantitative criteria for viable neoplasm. (Charli et al, Journal of Clinical Oncology 16:2142, 1998). 4. Overall, compared to the prior FDG PET study dated 05/17/17, there is current absence of defined viable neoplastic disease with an apparent interim quantitative complete metabolic response relating to the prior defined pelvic mesenteric hypermetabolic focus. Electronic Signature Edwar Owens D.O. Electronically Signed: Edwar Owens DO at 23:21 EDT Tel , Service support , CC: Abel Haddad MD; Elly Nguyen NP [employer] Operations Engineer: Signed ONCOLOGY VISIT REPORT Observed: 12/21/2017 Status: F Source: [facility] 12:23 PM [facility] REPOSITORY [facility] [address] [place] [address] OFFICE VISIT Date of Service: 12/21/17 1112 MR#: [id number] Acct: [id number] Name: UMLU ALEXANDER Rep #: [id number] : 1940 From: Elly Nguyen NPAki Age/Sex: 77/F Location: OMD Status: Signed Subjective - Date of Service Date of Service:: 12/21/17 - Chief Complaint 4 wk f/u AND Education Zejula - History of Present Illness Ms. Mulu Alexander is a 77-year-old woman who presented with abdominal pain. CT scan of the abdomen and pelvis on 05/26/2016 showed ascites, omental caking, bulky cervix, and an endometrial prominence suggestive of a gynecologic malignancy. Transvaginal ultrasound confirmed these findings. The patient was seen by Dr. Xiao. 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 CA125 on 07/14/2016 was 64,000. The patient had a PET CT on 07/15/2016, which showed hypermetabolic activity in the abdominopelvic mesentery, saundra hepatis and hepatic capsule with a single focus within the mid-abdominal retroperitoneum, as well as an incidental finding of pleural effusion. She received neoadjuvant chemotherapy with carboplatin and dose- dense Taxol x 3 cycles from 08/03/2016 to 09/28/2016. Underwent AYLA-BSO with debulking per Dr. Xiao on 10/20/2016, complicated by ileus. She received adjuvant Carboplatin and Dose Dense Taxol x 3 cycles from 12/08/2016 to 02/09/2017. She was seen at [facility], had a CTA scan to rule out PE on 04/14/2017 and was found a splenic mass. CA125 was 343 on 05/05/2017. CT c/a/p on 05/11/2017 was negative, PET/CT on 05/17/2017 showed solitary hypermetabolic activity in L paramedian upper pelvic area. She was seen by Dr. Xiao, chemotherapy was suggested. She started chemotherapy with Doxil 50mg/m2 on 06/22/2017. She had a CT after the 2nd cycle which showed stable disease. Developed pain and redness of the palms and mouth ulcers subsequent to cycle 2. Cycle 3 delayed by 2 weeks, administered 08/24/17 with 20% dose attenuation. CA125 on 10/12/2017 was 51. Completed 6 cycles Doxil on 11/23/17. - Interval History The patient is presenting to clinic accompanied by her spouse for 4 week follow up and to receive education about niraparib. States she is feeling well in terms of energy levels. Has not experienced nausea since completing Doxil therapy, although does still have antiemetics at home. Reports her feet continue to get red sometimes, blistering of skin has resolved. - Past Medical/Social History Past Medical History Past Medical History: Anxiety,Asthma,Congestive heart failure,GERD, Hypertension,Pneumonia Cancer: Ovarian cancer Past Surgical History Surgical: Cholecystectomy,Hysterectomy,Port placement Other Surgical History: cardiac stents x2 Family History Paternal Past Medical History: Heart disease,Tuberculosis Maternal Past Medical History: Diabetes mellitus,Heart disease,Hypertension Social History Social History: No changes Smoking Status Never smoker Review of Systems Constitutional:: Reports: Fatigue - mild. Denies: Fever, Sweats, Weight loss, Appetite change, Chills Cardiovascular:: Denies: Chest pain, Palpitations, Dyspnea on exertion, Orthopnea, PND, Shortness of breath Respiratory: Reports: Cough - H/o COPD. Denies: Hemoptysis, Shortness of Breath, Wheezing Gastrointestinal:: Denies: Abdominal pain, Nausea, Vomiting, Diarrhea, Constipation, Melena, Hematochezia Genitourinary: Denies: Dysuria, Hematuria, 15, Flank pain Musculoskeletal:: Denies: Back pain, Myalgia, Arthralgia Skin: Denies: Rash, Skin Changes, Wounds Neurological:: Denies: Headache, Dizziness, Visual changes, Tinnitus, Hearing loss Psychiatric: Denies: Anxiety, Depression, Homicidal Ideations, Suicidal Ideations Vital Signs Height 5 ft 4 in Weight: 213 lb Weight in Pounds 213.0 lbs Pulse Ox 98 - Physical Exam General: Alert, Oriented x3, No apparent distress HEENT: Atraumatic, Normocephalic Oropharynx:: Negative for: Dry mucosa, Ulcerated lesions Neck:: Supple, Trachea midline. Negative for: JVD, bilateral Cardiac:: Regular rate, Regular rhythm, Normal S1, Normal S2. Negative for: Murmur Lungs: Clear to auscultation, Excusion symmetrical. Negative for: Rhonchi, Wheezes Abdomen:: Bowel sounds x 4, Soft, Non-tender, Non-distended. Negative for: Hepatosplenomegaly Extremities:: Edema - BLE with R=L. Negative for: Cyanosis Neurological: Neuro grossly intact Skin:: Negative for: Lesions, Rash, Petechiae, Ecchymosis Psychiatric:: Appropriate affect, Euthymic Lymphatics:: Negative for: Cervical lymphadenopathy, Supraclavicular lymphadenopathy, Axillary lymphadenopathy Assessment and Plan 1.Recurrent ovarian cancer with peritoneal metastases- Completed 6 cycles of Doxil 11/23/17. It has been proposed patient will begin therapy with niraparib. Patient has been in communication with her specialty pharmacy supplier, but she has not yet received drug. Plans phone call tomorrow. The patient has been thoroughly educated to risks/benefits associated with niraparib. Specifically, she has been educated to potential side effects, recommendations for symptom management, and circumstances in which she should contact provider immediately, such as the development of any signs/symptoms of infection inclusive of temperature > 100.4. Encouraged to go directly to ED should fever occur outside normal clinic hours. She has been provided written educational information. Reviewed CBC monitoring schedule and care/safe keeping of medication. Greater than 50% of this 45 minute was spent in counseling and a significant amount of time was allotted for questions. All the patient's concerns were addressed to her satisfaction and she is agreeable to proceed. Orders for restaging study by way of PET/CT placed. RTC 2 weeks to review the results of PET/CT and commence with niraparib. Elly Nguyen, MSN, [employer], AOCNP Medications: Prescriptions This Visit Medication Instructions Recorded Montelukast [Singulair] 10 mg PO DAILY PRN 05/05/17 Prochlorperazine Maleate 10 mg PO Q6H PRN PRN #30 tablet 06/22/17 Primary Care Provider: Abel Haddad Referring Provider: - Problem List (1) Ovarian cancer Status: Chronic Qualifiers: Laterality: unspecified laterality Qualified Code(s): C56.9 - Malignant neoplasm of unspecified ovary (2) Educational circumstance Status: Acute 12/21/17 1223 <Electronically signed by Elly WADEC> Date Elly CARTER Cosigner Signature: Date (if applicable) CC: CBC W/DIFF, AUTOMATED Collected: 12/15/2017 Status: F Source: [facility] 10:50 AM [facility] [place] REPOSITORY Order Comment: Reason for Laboratory Test . TYPE CODE TESTS RESULT OUT OF RANGE REFERENCE UNITS LAB L100.1000 4.4-11.0 K/mm3 Low WBC 4.0 LAB L100.1200 4.2-5.4 M/mm3 Low RBC 3.88 LAB L100.1300 12.0-15.0 g/dl Low HGB 11.9 LAB L100.1400 37-47 % Low HCT 36.5 LAB L100.1500 81-99 fL Normal MCV 94.1 LAB L100.1600 27.0-32.0 pg Normal MCH 30.7 LAB L100.1700 32-36 g/gl Normal MCHC 32.6 LAB L100.1810 11.6-14.6 % High RDW CV 16.3 LAB L100.1820 35.1-43.9 fl High RDW SD 55.6 LAB L100.1900 150-450 K/mm3 Normal PLT 198 LAB L100.2000 6.2-12.0 fl Normal MPV 10.6 LAB L100.2100 47-70 % Normal NEUT% 56.5 LAB L100.2200 19-41 % Normal LY% 29.0 LAB L100.2300 0-10 % High MONO% 10.9 LAB L100.2400 0-5 % Normal EO% 2.5 LAB L100.2500 0-1 % Normal BASO% 0.8 LAB L100.2550 0.0-0.9 % Normal IM GRAN % 0.300 Result Comment: IG% - Immature Granulocytes (promyelocytes, myelocytes and metamyelocytes) > 1% indicates that a LEFT SHIFT is Present. LAB L100.2620 2.0-7.7 X10 3/uL Normal Absolute Neut 2.2 LAB L100.2720 0.83-4.51 X10 3/ul Normal Absolute Lymph 1.15 Performed By: #### L100.0100 #### [facility] [place], [place], [id number] #### L3100.5000 #### [facility] (refer to report for specific site) refer to report for address and phone number CANCER ANTIGEN 125 Collected: 12/15/2017 Status: F Source: [place] 10:50 AM [facility] [place] REPOSITORY Order Comment: Reason for Laboratory Test . TYPE CODE TESTS RESULT OUT OF RANGE REFERENCE UNITS LAB L3100.5000 0.0-38.1 U/mL High CA125 55.8 2303 Result Comment: Gerardo ECLIA methodology Performed at: - [facility] [id number] [place] Boss: Christiano Irvin PhD, Phone: [phone] Performed By: #### L100.0100 #### [facility] [place], [address] #### L3100.5000 #### [facility] (refer to report for specific site) refer to report for address and phone number COMPREHENSIVE METABOLIC Collected: 12/15/2017 Status: F Source: [facility] 10:50 AM [facility] [place] REPOSITORY Order Comment: Reason for Laboratory Test . TYPE CODE TESTS RESULT OUT OF RANGE REFERENCE UNITS LAB L501.0100 74-106 mg/dL High GLU 160 Result Comment: Fasting Glucose result greater than or equal to 126 mg/dL suggests DIABETES MELLITUS per A.D.A. criteria. Please note revised GLUCOSE reference range effective 2017. LAB L501.1000 7-18 mg/dL Normal BUN 11 LAB L501.1100 0.55-1.02 mg/dL Normal CREAT,SERUM 0.86 Result Comment: The validity of the calculated GFR AND GFRAA in patients over 70 years has not been determined. Clinical correlation is essential. LAB L501.1110 >60 mL/min Normal EST GFR 68 Result Comment: Non- GFR Calc LAB L501.1115 >60 mL/min Normal EST GFR - AA 82 Result Comment: GFR Calc LAB L501.1255 ml/min Normal Estimated CRCL 48.81 LAB L501.1300 10-20 RATIO Normal BUN/CRE 12.7 LAB L501.1500 6.4-8. g/dL Low 2 T PROT 6.0 LAB L501.1800 3.2-5. g/dL Normal 0 ALB 3.2 LAB L501.1950 2.2-4. g/dL Normal 2 GLOB 2.8 LAB L501.2000 0.9-2. RATIO Normal 4 A/G 1.1 LAB L501.2200 8.5-10 mg/dL Normal .1 CA 9.2 LAB L501.4100 15-37 U/L Normal AST 22 LAB L501.4305 45-117 U/L Normal ALK P 88 LAB L501.4405 13-56 U/L Normal ALT 27 LAB L501.4600 0.20-1 mg/dL Normal .00 T BILI 0.30 LAB L501.5300 136-14 mmol/L Normal 5 NA 140 LAB L501.5600 3.5-5. mmol/L Normal 1 K 3.8 LAB L501.5900 98-107 mmol/L Normal CL 104 LAB L501.6100 21.0-3 mmol/L Normal 2.0 CO2 29.0 LAB L501.6200 5-15 Normal GAP 7 Performed By: #### L500.4050 #### [facility] [address] [facility] [place], [address] ONCOLOGY VISIT REPORT Observed: 11/23/2017 Status: F Source: [place] 1:20 PM [facility] [place] REPOSITORY [facility] [address] [facility] [place] [address] OFFICE VISIT Date of Service: 11/23/17 1301 MR#: [id number] Acct: [id number] Name: MULU ALEXANDER Rep #: [id number] : 1940 From: Ilan Berg MD Age/Sex: 77/F Location: ONC Status: Signed Subjective - Date of Service Date of Service:: 11/23/17 - Chief Complaint F/u for chemotherapy. - History of Present Illness Ms. Mulu Alexander is a 77-year-old woman who presented with abdominal pain. CT scan of the abdomen and pelvis on 05/26/2016 showed ascites, omental caking, bulky cervix, and an endometrial prominence suggestive of a gynecologic malignancy. Transvaginal ultrasound confirmed these findings. The patient was seen by Dr. Xiao. 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 CA125 on 07/14/2016 was 64,000. The patient had a PET CT on 07/15/2016, which showed hypermetabolic activity in the abdominopelvic mesentery, saundra hepatis and hepatic capsule with a single focus within the mid-abdominal retroperitoneum, as well as an incidental finding of pleural effusion. She received neoadjuvant chemotherapy with carboplatin and dose- dense Taxol x 3 cycles from 08/03/2016 to 09/28/2016. Underwent AYLA-BSO with debulking per Dr. Xiao on 10/20/2016, complicated by ileus. She received adjuvant Carboplatin and Dose Dense Taxol x 3 cycles from 12/08/2016 to 02/09/2017. She was seen at [facility], had a CTA scan to rule out PE on 04/14/2017 and was found a splenic mass. CA125 was 343 on 05/05/2017. CT c/a/p on 05/11/2017 was negative, PET/CT on 05/17/2017 showed solitary hypermetabolic activity in L paramedian upper pelvic area. She was seen by Dr. Xiao, chemotherapy was suggested. She started chemotherapy with Doxil 50mg/m2 on 06/22/2017. She had a CT after the 2nd cycle which showed stable disease. Developed pain and redness of the palms and mouth ulcers subsequent to cycle 2. Cycle 3 delayed by 2 weeks, administered 08/24/17 with 20% dose attenuation. CA125 on 10/12/2017 was 51. She is now due for C6. She had a cold a few weeks ago, has slight redness of the soles. - Past Medical/Social History Past Medical History Past Medical History: Anxiety,Asthma,Congestive heart failure,GERD, Hypertension,Pneumonia Cancer: Ovarian cancer Past Surgical History Surgical: Cholecystectomy,Hysterectomy,Port placement Other Surgical History: cardiac stents x2 Family History Paternal Past Medical History: Heart disease,Tuberculosis Maternal Past Medical History: Diabetes mellitus,Heart disease,Hypertension Social History Social History: No changes Smoking Status Never smoker Review of Systems Constitutional:: Denies: Fever, Sweats, Weight loss, Appetite change, Chills Cardiovascular:: Denies: Chest pain, Palpitations, Dyspnea on exertion, Orthopnea, PND, Shortness of breath Respiratory: Denies: Cough, Hemoptysis, Shortness of Breath, Wheezing Gastrointestinal:: Denies: Abdominal pain, Nausea, Vomiting, Diarrhea, Constipation, Hematochezia Genitourinary: Denies: Dysuria, Hematuria, 15, Flank pain Musculoskeletal:: Denies: Back pain, Myalgia, Arthralgia Skin: Denies: Rash, Skin Changes, Wounds Neurological:: Denies: Headache, Dizziness, Visual changes, Tinnitus, Hearing loss Psychiatric: Denies: Anxiety, Depression, Homicidal Ideations, Suicidal Ideations Vital Signs Height 5 ft 4 in Weight: 96.615 kg Weight in Pounds 213.0 lbs Pulse Ox 97 - Physical Exam General: Alert, Oriented x3, No apparent distress HEENT: Atraumatic, PERRLA, EOMI, Normocephalic Oropharynx:: Clear Neck:: Supple, Trachea midline. Negative for: JVD, bilateral Cardiac:: Regular rate, Regular rhythm, Normal S1, Normal S2. Negative for: Murmur Lungs: Clear to auscultation, Excusion symmetrical. Negative for: Rhonchi, Wheezes Abdomen:: Bowel sounds x 4, Soft, Non-tender, Non-distended. Negative for: Hepatosplenomegaly Extremities:: - - + ankle swelling, no pitting or tenderness.. 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 Tolerating therapy, CT showed no evidence of progressive disease. Counts are OK for chemotherapy. Discussed therapy with Lilliam after chemotherapy. Pt agrees. Plan is to proceed with 6th cycle of Doxil. Will restage after 6th cycle. RTC 4 wks with CBC, CMP. Medications: Prescriptions This Visit Medication Instructions Recorded Montelukast [Singulair] 10 mg PO DAILY PRN 05/05/17 Prochlorperazine Maleate 10 mg PO Q6H PRN PRN #30 tablet 06/22/17 Primary Care Provider: Abel Haddad Referring Provider: - Problem List (1) Ovarian metastasis Status: Chronic Code Visit Office Visits / Consults: [id number] OV L5 Est 11/23/17 1320 <Electronically signed by Ilan Berg MD> Date Ilan Berg MD Cosigner Signature: Date (if applicable) CC: Ned Xiao CBC W/DIFF, AUTOMATED Collected: 11/23/2017 Status: F Source: [facility] 9:08 AM [facility] [place] REPOSITORY TYPE CODE TESTS RESULT OUT OF RANGE REFERENCE UNITS LAB L100.1000 4.4-11.0 K/mm3 Low WBC 3.4 LAB L100.1200 4.2-5.4 M/mm3 Low RBC 3.92 LAB L100.1300 12.0-15.0 g/dl Low HGB 11.8 LAB L100.1400 37-47 % Normal HCT 37.1 LAB L100.1500 81-99 fL Normal MCV 94.6 LAB L100.1600 27.0-32.0 pg Normal MCH 30.1 LAB L100.1700 32-36 g/gl Low MCHC 31.8 LAB L100.1810 11.6-14.6 % High RDW CV 15.9 LAB L100.1820 35.1-43.9 fl High RDW SD 53.8 LAB L100.1900 150-450 K/mm3 Normal PLT 215 LAB L100.2000 6.2-12.0 fl Normal MPV 9.9 LAB L100.2100 47-70 % Normal NEUT% 53.5 LAB L100.2200 19-41 % Normal LY% 29.8 LAB L100.2300 0-10 % High MONO% 12.3 LAB L100.2400 0-5 % Normal EO% 2.6 LAB L100.2500 0-1 % High BASO% 1.2 LAB L100.2550 0.0-0.9 % Normal IM GRAN % 0.600 Result Comment: IG% - Immature Granulocytes (promyelocytes, myelocytes and metamyelocytes) > 1% indicates that a LEFT SHIFT is Present. LAB L100.2620 2.0-7.7 X10 3/uL Low Absolute Neut 1.8 LAB L100.2720 0.83-4.51 X10 3/ul Normal Absolute Lymph 1.02 Performed By: #### L100.0100 #### [facility] [place], [address] COMPREHENSIVE METABOLIC Collected: 11/23/2017 Status: F Source: [facility] 9:08 AM [facility] REPOSITORY Order Comment: Reason for Laboratory Test Chemotherapy TYPE CODE TESTS RESULT OUT OF RANGE REFERENCE UNITS LAB L501.0100 74-106 mg/dL High GLU 154 Result Comment: Fasting Glucose result greater than or equal to 126 mg/dL suggests DIABETES MELLITUS per A.D.A. criteria. Please note revised GLUCOSE reference range effective 2017. LAB L501.1000 7-18 mg/dL Normal BUN 8 LAB L501.1100 0.55-1.02 mg/dL Normal CREAT,SERUM 0.80 Result Comment: The validity of the calculated GFR AND GFRAA in patients over 70 years has not been determined. Clinical correlation is essential. LAB L501.1110 >60 mL/min Normal EST GFR 74 Result Comment: Non- GFR Calc LAB L501.1115 >60 mL/min Normal EST GFR - AA 90 Result Comment: GFR Calc LAB L501.1255 ml/min Normal Estimated CRCL 52.47 LAB L501.1300 10-20 RATIO Normal BUN/CRE 10.0 LAB L501.1500 6.4-8. g/dL Low 2 T PROT 6.1 LAB L501.1800 3.2-5. g/dL Low 0 ALB 3.0 LAB L501.1950 2.2-4. g/dL Normal 2 GLOB 3.1 LAB L501.2000 0.9-2. RATIO Normal 4 A/G 1.0 LAB L501.2200 8.5-10 mg/dL Normal .1 CA 8.7 LAB L501.4100 15-37 U/L Normal AST 17 LAB L501.4305 45-117 U/L Normal ALK P 100 LAB L501.4405 13-56 U/L Normal ALT 25 Result Comment: Please note revised ALT reference range effective 2017. LAB L501.4600 0.20-1.00 mg/dL Normal T BILI 0.30 LAB L501.5300 136-145 mmol/L Normal NA 141 LAB L501.5600 3.5-5.1 mmol/L Normal K 3.9 LAB L501.5900 98-107 mmol/L Normal CL 105 LAB L501.6100 21.0-32.0 mmol/L Normal CO2 31.0 LAB L501.6200 5-15 Normal GAP 5 Performed By: #### L500.4050 #### [facility] [address] [facility] [address] [place], [place], [address] XR CHEST 2 VIEWS Observed: 11/09/2017 Status: F Source: [facility] 1:57 PM [facility] REPOSITORY ORIGINAL XR CHEST 2 VIEWS CLINICAL STATEMENT: bronchitis, history of ovarian cancer Comparison: Chest radiograph September 06, 2017 FINDINGS: There is a right-sided MediPort with the tip at the cavoatrial junction. Heart size is normal. There is prominence of the interstitial markings bilaterally, unchanged. No focal consolidation, vascular congestion, pleural effusion, or pneumothorax. Mild degenerative changes of the spine. IMPRESSION: No acute radiographic finding. I have personally reviewed the images of this examination and agree with the resident's findings and interpretation. Interpreted By: Valeria Moncada MD Preliminary Report By: Isatu Alcantar DO Electronically Signed By: Valeria Moncada MD Dictated Date: 11/09/2017 2:08:15 PM Prelim Date: 11/09/2017 2:09:10 PM Sign Date: 11/09/2017 4:09:19 PM ONCOLOGY VISIT REPORT Observed: 10/26/2017 Status: F Source: [place] [place] 10:22 AM [facility] [place] REPOSITORY [facility] [address] [facility] [place] [address] OFFICE VISIT Date of Service: 10/26/17 1012 MR#: [id number] Acct: [id number] Name: MULU ALEXANDER Rep #: [id number] : 1940 From: Ilan Berg MD Age/Sex: 77/F Location: ONC Status: Signed Subjective - Date of Service Date of Service:: 10/26/17 - Chief Complaint F/u for chemotherapy. - History of Present Illness Ms. Mulu Alexander is a 77-year-old woman who presented with abdominal pain. CT scan of the abdomen and pelvis on 05/26/2016 showed ascites, omental caking, bulky cervix, and an endometrial prominence suggestive of a gynecologic malignancy. Transvaginal ultrasound confirmed these findings. The patient was seen by Dr. Xiao. 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 CA125 on 07/14/2016 was 64,000. The patient had a PET CT on 07/15/2016, which showed hypermetabolic activity in the abdominopelvic mesentery, saundra hepatis and hepatic capsule with a single focus within the mid-abdominal retroperitoneum, as well as an incidental finding of pleural effusion. She received neoadjuvant chemotherapy with carboplatin and dose- dense Taxol x 3 cycles from 08/03/2016 to 09/28/2016. Underwent AYLA-BSO with debulking per Dr. Xiao on 10/20/2016, complicated by ileus. She received adjuvant Carboplatin and Dose Dense Taxol x 3 cycles from 12/08/2016 to 02/09/2017. She was seen at [facility], had a CTA scan to rule out PE on 04/14/2017 and was found a splenic mass. CA125 was 343 on 05/05/2017. CT c/a/p on 05/11/2017 was negative, PET/CT on 05/17/2017 showed solitary hypermetabolic activity in L paramedian upper pelvic area. She was seen by Dr. Xiao, chemotherapy was suggested. She started chemotherapy with Doxil 50mg/m2 on 06/22/2017. She had a CT after the 2nd cycle. Developed pain and redness of the palms and mouth ulcers subsequent to cycle 2. Cycle 3 delayed by 2 weeks, administered 08/24/17 with 20% dose attenuation. Current treatment: Doxil started 06/22/2017, due for C5. She feels well, L lower tooth is tender. - Past Medical/Social History Past Medical History Past Medical History: Anxiety,Asthma,Congestive heart failure,GERD, Hypertension,Pneumonia Cancer: Ovarian cancer Past Surgical History Surgical: Cholecystectomy,Hysterectomy,Port placement Other Surgical History: cardiac stents x2 Family History Paternal Past Medical History: Heart disease,Tuberculosis Maternal Past Medical History: Diabetes mellitus,Heart disease,Hypertension Social History Social History: No changes Smoking Status Never smoker Review of Systems Constitutional:: Denies: Fever, Sweats, Weight loss, Appetite change, Chills Cardiovascular:: Denies: Chest pain, Palpitations, Dyspnea on exertion, Orthopnea, PND, Shortness of breath Respiratory: Denies: Cough, Hemoptysis, Shortness of Breath, Wheezing Gastrointestinal:: Denies: Abdominal pain, Nausea, Vomiting, Diarrhea, Constipation, Hematochezia Genitourinary: Denies: Dysuria, Hematuria, 15, Flank pain Musculoskeletal:: Denies: Back pain, Myalgia, Arthralgia Skin: Denies: Rash, Skin Changes, Wounds Neurological:: Denies: Headache, Dizziness, Visual changes, Tinnitus, Hearing loss Psychiatric: Denies: Anxiety, Depression, Homicidal Ideations, Suicidal Ideations Vital Signs Height 5 ft 4 in Weight: 95.708 kg Weight in Pounds 211.0 lbs Pulse Ox 94 - Physical Exam General: Alert, Oriented x3, No apparent distress HEENT: Atraumatic, PERRLA, EOMI, Normocephalic Oropharynx:: Dry mucosa, - - + plaques L lower incisor. Neck:: Supple, Trachea midline. Negative for: JVD, bilateral Cardiac:: Regular rate, Regular rhythm, Normal S1, Normal S2. Negative for: Murmur Lungs: Clear to auscultation, Excusion symmetrical. Negative for: Rhonchi, Wheezes Abdomen:: Bowel sounds x 4, Soft, Non-tender, Non-distended. 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 Tolerating therapy, CT showed no evidence of progressive disease. Counts are OK for chemotherapy. Plan is to proceed with 5th cycle of Doxil. Will complete 6 cycles then restage. RTC 4 wks with CBC, CMP for C6. Medications: Prescriptions This Visit Medication Instructions Recorded Montelukast [Singulair] 10 mg PO DAILY PRN 05/05/17 Prochlorperazine Maleate 10 mg PO Q6H PRN PRN #30 tablet 06/22/17 Primary Care Provider: Abel Haddad Referring Provider: - Problem List (1) Ovarian metastasis Status: Chronic Code Visit Office Visits / Consults: [id number] OV L5 Est 10/26/17 1022 <Electronically signed by Ilan Berg MD> Date Ilan Berg MD Cosigner Signature: Date (if applicable) CC: CBC W/DIFF, AUTOMATED Collected: 10/25/2017 Status: F Source: [facility] 10:57 AM [facility] [place] REPOSITORY Order Comment: Reason for Laboratory Test . TYPE CODE TESTS RESULT OUT OF RANGE REFERENCE UNITS LAB L100.1000 4.4-11.0 K/mm3 Low WBC 4.0 LAB L100.1200 4.2-5.4 M/mm3 Low RBC 3.92 LAB L100.1300 12.0-15.0 g/dl Low HGB 11.8 LAB L100.1400 37-47 % Low HCT 36.8 LAB L100.1500 81-99 fL Normal MCV 93.9 LAB L100.1600 27.0-32.0 pg Normal MCH 30.1 LAB L100.1700 32-36 g/gl Normal MCHC 32.1 LAB L100.1810 11.6-14.6 % High RDW CV 15.8 LAB L100.1820 35.1-43.9 fl High RDW SD 54.3 LAB L100.1900 150-450 K/mm3 Normal PLT 198 LAB L100.2000 6.2-12.0 fl Normal MPV 10.8 LAB L100.2100 47-70 % Normal NEUT% 54.6 LAB L100.2200 19-41 % Normal LY% 30.2 LAB L100.2300 0-10 % High MONO% 11.6 LAB L100.2400 0-5 % Normal EO% 1.8 LAB L100.2500 0-1 % High BASO% 1.3 LAB L100.2550 0.0-0.9 % Normal IM GRAN % 0.500 Result Comment: IG% - Immature Granulocytes (promyelocytes, myelocytes and metamyelocytes) > 1% indicates that a LEFT SHIFT is Present. LAB L100.2620 2.0-7.7 X10 3/uL Normal Absolute Neut 2.2 LAB L100.2720 0.83-4.51 X10 3/ul Normal Absolute Lymph 1.20 Performed By: #### L100.0100, L500.4050 #### [facility] [address] [place], [place], [address] COMPREHENSIVE METABOLIC Collected: 10/25/2017 Status: F Source: [facility] 10:57 AM [facility] REPOSITORY Order Comment: Reason for Laboratory Test . TYPE CODE TESTS RESULT OUT OF RANGE REFERENCE UNITS LAB L501.0100 74-106 mg/dL High GLU 157 Result Comment: Fasting Glucose result greater than or equal to 126 mg/dL suggests DIABETES MELLITUS per A.D.A. criteria. Please note revised GLUCOSE reference range effective 2017. LAB L501.1000 7-18 mg/dL Normal BUN 8 LAB L501.1100 0.55-1.02 mg/dL Normal CREAT,SERUM 0.80 Result Comment: The validity of the calculated GFR AND GFRAA in patients over 70 years has not been determined. Clinical correlation is essential. LAB L501.1110 >60 mL/min Normal EST GFR 75 Result Comment: Non- GFR Calc LAB L501.1115 >60 mL/min Normal EST GFR - AA 90 Result Comment: GFR Calc LAB L501.1255 ml/min Normal Estimated CRCL 52.47 LAB L501.1300 10-20 RATIO Normal BUN/CRE 10.0 LAB L501.1500 6.4-8. g/dL Low 2 T PROT 6.0 LAB L501.1800 3.2-5. g/dL Low 0 ALB 3.0 LAB L501.1950 2.2-4. g/dL Normal 2 GLOB 3.0 LAB L501.2000 0.9-2. RATIO Normal 4 A/G 1.0 LAB L501.2200 8.5-10 mg/dL Normal .1 CA 8.6 LAB L501.4100 15-37 U/L Normal AST 21 LAB L501.4305 45-117 U/L Normal ALK P 105 LAB L501.4405 13-56 U/L Normal ALT 23 Result Comment: Please note revised ALT reference range effective 2017. LAB L501.4600 0.20-1.00 mg/dL Normal T BILI 0.30 LAB L501.5300 136-145 mmol/L Normal NA 140 LAB L501.5600 3.5-5.1 mmol/L Normal K 3.8 LAB L501.5900 98-107 mmol/L Normal CL 106 LAB L501.6100 21.0-32.0 mmol/L Normal CO2 27.0 LAB L501.6200 5-15 Normal GAP 7 Performed By: #### L100.0100, L500.4050 #### [facility] [place], [address] CANCER ANTIGEN 125 Collected: 10/12/2017 Status: F Source: [facility] [place] 2:59 PM [facility] REPOSITORY Order Comment: Reason for Laboratory Test . TYPE CODE TESTS RESULT OUT OF RANGE REFERENCE UNITS LAB L3100.5000 0.0-38.1 U/mL High CA125 51.8 2303 Result Comment: [employer] ECLIA methodology Performed at: [facility] [address] [id number] [place] Boss: Christiano Irvin PhD, Phone: [phone] Performed By: #### L3100.5000 #### [facility] (refer to report for specific site) refer to report for address and phone number COMPREHENSIVE METABOLIC Collected: 10/12/2017 Status: F Source: [facility] 2:04 PM [facility] REPOS[facility]ORY Order Comment: Reason for Laboratory Test . TYPE CODE TESTS RESULT OUT OF RANGE REFERENCE UNITS LAB L501.0100 74-106 mg/dL High GLU 125 Result Comment: Fasting Glucose result from 100 to 125 mg/dL suggests IMPAIRED HOMEOSTASIS per A.D.A. criteria. Please note revised GLUCOSE reference range effective 2017. LAB L501.1000 7-18 mg/dL Normal BUN 11 LAB L501.1100 0.55-1.02 mg/dL Normal CREAT,SERUM 0.86 Result Comment: The validity of the calculated GFR AND GFRAA in patients over 70 years has not been determined. Clinical correlation is essential. LAB L501.1110 >60 mL/min Normal EST GFR 68 Result Comment: Non- GFR Calc LAB L501.1115 >60 mL/min Normal EST GFR - AA 83 Result Comment: GFR Calc LAB L501.1255 ml/min Normal Estimated CRCL 49.56 LAB L501.1300 10-20 RATIO Normal BUN/CRE 12.8 LAB L501.1500 6.4-8. g/dL Low 2 T PROT 6.1 LAB L501.1800 3.2-5. g/dL Low 0 ALB 3.0 LAB L501.1950 2.2-4. g/dL Normal 2 GLOB 3.1 LAB L501.2000 0.9-2. RATIO Normal 4 A/G 1.0 LAB L501.2200 8.5-10 mg/dL Normal .1 CA 8.9 LAB L501.4100 15-37 U/L Normal AST 19 LAB L501.4305 45-117 U/L Normal ALK P 104 LAB L501.4405 13-56 U/L Normal ALT 29 Result Comment: Please note revised ALT reference range effective 2017. LAB L501.4600 0.20-1.00 mg/dL Normal T BILI 0.30 LAB L501.5300 136-145 mmol/L Normal NA 139 LAB L501.5600 3.5-5.1 mmol/L Normal K 3.7 LAB L501.5900 98-107 mmol/L Normal CL 100 LAB L501.6100 21.0-32.0 mmol/L Normal CO2 31.0 LAB L501.6200 5-15 Normal GAP 8 Performed By: #### L500.4050 #### [facility] [address] [place], [place] [address]all [facility] [place], [place], [id number] CBC W/DIFF, AUTOMATED Collected: 10/12/2017 Status: F Source: [facility] [place] 2:04 PM [facility] REPOSITORY Order Comment: Reason for Laboratory Test , TYPE CODE TESTS RESULT OUT OF RANGE REFERENCE UNITS LAB L100.1000 4.4-11.0 K/mm3 Normal WBC 5.6 LAB L100.1200 4.2-5.4 M/mm3 Low RBC 3.80 LAB L100.1300 12.0-15.0 g/dl Low HGB 11.4 LAB L100.1400 37-47 % Low HCT 35.4 LAB L100.1500 81-99 fL Normal MCV 93.2 LAB L100.1600 27.0-32.0 pg Normal MCH 30.0 LAB L100.1700 32-36 g/gl Normal MCHC 32.2 LAB L100.1810 11.6-14.6 % High RDW CV 15.4 LAB L100.1820 35.1-43.9 fl High RDW SD 52.0 LAB L100.1900 150-450 K/mm3 Normal PLT 192 LAB L100.2000 6.2-12.0 fl Normal MPV 10.4 LAB L100.2100 47-70 % High NEUT% 73.6 LAB L100.2200 19-41 % Normal LY% 20.4 LAB L100.2300 0-10 % Normal MONO% 2.7 LAB L100.2400 0-5 % Normal EO% 2.7 LAB L100.2500 0-1 % Normal BASO% 0.4 LAB L100.2550 0.0-0.9 % Normal IM GRAN % 0.200 Result Comment: IG% - Immature Granulocytes (promyelocytes, myelocytes and metamyelocytes) > 1% indicates that a LEFT SHIFT is Present. LAB L100.2620 2.0-7.7 X10 3/uL Normal Absolute Neut 4.1 LAB L100.2720 0.83-4.51 X10 3/ul Normal Absolute Lymph 1.13 Performed By: #### L100.0100 #### [facility] [address] [place] [address]. [place], [place], [address] CHEST WITH CONTRAST Observed: 10/07/2017 Status: F Source: [place] 1:25 PM [facility] REPOSITORY [facility] Imaging Services [address] [place] [address] Chest WITH Contrast MR#: [id number] Acct: [id number] Name: MULU ALEXANDER Rep #: [id number] : 1940 F 76 From: Japser Phoenix MD PCP: Abel Haddad MD Status: REG CLI Study: Chest WITH Contrast Date of Exam: 10/07/17 Exam# [id number] Ordering Dr: Elly Nguyen LOSS PREVENTION AUDITOR-C STUDY: CT CHEST WITHOUT CONTRAST REASON FOR EXAM: Female, 76 years old. Ovarian cancer RADIATION DOSAGE (If Supplied By Facility): CTDIvol = ( 12.19 ) mGy, DLP = ( 502.58 ) mGycm TECHNIQUE: Transaxial imaging was performed without the administration of intravenous contrast material. Individualized dose optimization techniques were used for this CT. COMPARISON: PT Body May 17 2017 1:10pm FINDINGS: There is no pneumothorax. The lungs are normal. There is no demonstrated pleural abnormality. There is a right Port-A-Cath and/or Mediport in place. The tip is in the superior vena cava. There are degenerative changes of the shoulders. There is a right 4.1 mm upper lobe nodule. Series 2 image 31. This appears stable. There are calcifications of the coronary arteries. Normal mediastinum. Normal hilar regions. Normal pulmonary arteries. There is atherosclerotic calcification of the aortic arch with tortuosity and elongation of the aortic arch and descending thoracic aorta. There are multi-level degenerative changes of the thoracic spine. There is no demonstrated abnormality of the visualized upper abdomen. CT/Chest WITH Contrast IMPRESSION: Stable right upper lobe nodule. There are no new findings. Electronically Signed: Jasper Phoenix MD at 17:04 EST , Service support , CC: Abel Haddad MD; Elly Nguyen NP [employer] Operations Engineer: Signed ABDOMEN/PELVIS WITH Observed: 10/07/2017 Status: F Source: [place] CONTRAST 1:25 PM [facility] REPOSITORY [facility] Imaging Services [address] [place] [address] Abdomen/Pelvis WITH Contrast MR#: [id number] Acct: [id number] Name: MULU ALEXANDER Rep #: [id number] : 1940 F 76 From: Jasper Phoenix MD PCP: Abel Haddad MD Status: REG CLI Study: Abdomen/Pelvis WITH Contrast Date of Exam: 10/07/17 Exam# [id number] Ordering Dr: Elly Nguyen LOSS PREVENTION AUDITORAki STUDY: CT ABDOMEN AND PELVIS WITH CONTRAST REASON FOR EXAM: Female, 76 years old. Ovarian cancer follow up. Prior AYLA/BSO, appendectomy, cholecystectomy, Power Port. Prior chemotherapy. RADIATION DOSAGE (If Supplied By Facility): CTDIvol = ( 12.19 ) mGy, DLP = ( 502.58 ) mGycm TECHNIQUE: Transaxial images were obtained from the dome of the diaphragm to the symphysis pubis with oral contrast. 100mL ml of Isovue 300 contrast was administered. Sagittal and coronal images were reconstructed. Individualized dose optimization techniques were used for this CT. COMPARISON: August 05, 2017 FINDINGS: There are atherosclerotic calcifications of visualized coronary arteries. The visualized portions of the heart are within normal limits. Normal liver. There is non-visualization of the gallbladder, which may be secondary to either contraction or a prior cholecystectomy. Normal spleen. Normal pancreas. Normal bilateral adrenal glands. Stable hypodensity of the inferior right kidney. Normal left kidney. Normal visualized stomach. Normal small intestine. There are multiple colonic diverticula consistent with diverticulosis. There is non-visualization of the appendix. There are calcifications of the abdominal aorta and vascular structures. This is consistent for atherosclerotic disease. There is no abdominal aortic aneurysm. Normal inferior vena cava. Subcentimeter mesenteric lymph nodes. Normal urinary bladder. There is absence of the uterus consistent with a prior hysterectomy. Normal abdominal wall. There are degenerative changes of the osseous structures. CT/Abdomen/Pelvis WITH Contrast IMPRESSION: There are no acute findings. There are multiple diverticuli of the colon. There is diverticulosis but no radiographic signs for diverticulitis. Hysterectomy Cholecystectomy Stable right renal cyst. Other findings as above. Electronically Signed: Jasper Phoenix MD at 18:15 EST , Service support , CC: Abel Haddad MD; Elly Nguyen NP [employer] Operations Engineer: Signed CBC W/DIFF, AUTOMATED Collected: 09/28/2017 Status: F Source: [place] 8:48 AM [facility] REPOSITORY TYPE CODE TESTS RESULT OUT OF RANGE REFERENCE UNITS LAB L100.1000 4.4-11.0 K/mm3 Normal WBC 7.8 LAB L100.1200 4.2-5.4 M/mm3 Normal RBC 4.22 LAB L100.1300 12.0-15.0 g/dl Normal HGB 12.9 LAB L100.1400 37-47 % Normal HCT 39.4 LAB L100.1500 81-99 fL Normal MCV 93.4 LAB L100.1600 27.0-32.0 pg Normal MCH 30.6 LAB L100.1700 32-36 g/gl Normal MCHC 32.7 LAB L100.1810 11.6-14.6 % High RDW CV 16.4 LAB L100.1820 35.1-43.9 fl High RDW SD 56.4 LAB L100.1900 150-450 K/mm3 Normal PLT 167 LAB L100.2000 6.2-12.0 fl Normal MPV 10.6 LAB L100.2100 47-70 % High NEUT% 71.4 LAB L100.2200 19-41 % Low LY% 17.7 LAB L100.2300 0-10 % Normal MONO% 9.1 LAB L100.2400 0-5 % Normal EO% 0.9 LAB L100.2500 0-1 % Normal BASO% 0.4 LAB L100.2550 0.0-0.9 % Normal IM GRAN % 0.500 Result Comment: IG% - Immature Granulocytes (promyelocytes, myelocytes and metamyelocytes) > 1% indicates that a LEFT SHIFT is Present. LAB L100.2620 2.0-7.7 X10 3/uL Normal Absolute Neut 5.6 LAB L100.2720 0.83-4.51 X10 3/ul Normal Absolute Lymph 1.39 Performed By: #### L100.0100, L500.4050 #### [facility] [address] [place], [address] COMPREHENSIVE METABOLIC Collected: 09/28/2017 Status: F Source: [facility] 8:48 AM [facility] REPOSITORY Order Comment: Reason for Laboratory Test Chemotherapy TYPE CODE TESTS RESULT OUT OF RANGE REFERENCE UNITS LAB L501.0100 74-106 mg/dL High GLU 148 Result Comment: Fasting Glucose result greater than or equal to 126 mg/dL suggests DIABETES MELLITUS per A.D.A. criteria. LAB L501.1000 7-18 mg/dL Normal BUN 11 LAB L501.1100 0.55-1.02 mg/dL Normal CREAT,SERUM 0.91 Result Comment: The validity of the calculated GFR AND GFRAA in patients over 70 years has not been determined. Clinical correlation is essential. LAB L501.1110 >60 mL/min Normal EST GFR 64 Result Comment: Non- GFR Calc LAB L501.1115 >60 mL/min Normal EST GFR - AA 78 Result Comment: GFR Calc LAB L501.1255 ml/min Normal Estimated CRCL 46.84 LAB L501.1300 10-20 RATIO Normal BUN/CRE 12.1 LAB L501.1500 6.4-8. g/dL Low 2 T PROT 6.3 LAB L501.1800 3.2-5. g/dL Normal 0 ALB 3.2 LAB L501.1950 2.2-4. g/dL Normal 2 GLOB 3.1 LAB L501.2000 0.9-2. RATIO Normal 4 A/G 1.0 LAB L501.2200 8.5-10 mg/dL Normal .1 CA 9.0 LAB L501.4100 15-37 U/L Low AST 13 LAB L501.4305 45-117 U/L Normal ALK P 106 LAB L501.4405 13-56 U/L Normal ALT 30 Result Comment: Please note revised ALT reference range effective 2017. LAB L501.4600 0.20-1.00 mg/dL Normal T BILI 0.50 LAB L501.5300 136-145 mmol/L Normal NA 139 LAB L501.5600 3.5-5.1 mmol/L Normal K 4.1 LAB L501.5900 98-107 mmol/L Normal CL 102 LAB L501.6100 21.0-32.0 mmol/L Normal CO2 30.0 LAB L501.6200 5-15 Normal GAP 7 Performed By: #### L100.0100, L500.4050 #### [facility] [address] [place], [address] ALLERGIES ALLERGIES DATE TYPE / CODE NAME / CODE REACTION SEVERITY SOURCE 09/13/2018 Drug niacin/F0060 Nausea [facility] Allergy/4160 [address]([place] [address]([facility] ) Repository CT) 09/13/2018 Drug morphine/F00 Nausea/Vom/Diarr [facility] Allergy/4160 [id number]([place] [address]([facility]) Repository CT) ENCOUNTERS ENCOUNTERS ADMIT/DISCHARGE ACCOUNT NUMBER ADMITTING ENCOUNTER LOCATION SOURCE CLASS 09/13/2018 [id number] Ambulatory BMSBuilding: [place] [facility].CF.[facility] Repository 09/13/2018 [id number] Ambulatory [facility] ding:OMD Repository 09/09/2018 [id number] Ambulatory [facility] ding:[place] Repository 09/02/2018 [id number] Ambulatory [facility] ding:CT Repository 08/30/2018 [id number] Ambulatory BMS[facility]: [place] BMS.CF.[facility] Repository 07/07/2018 [id number] Ambulatory [facility]MSBuilding: [place] BMS.[facility] Repository 06/23/2018 [id number] Ambulatory [facility]MSBuilding: [place] BMS.CF.[facility] Repository 06/07/2018 [id number] Ambulatory [facility] ding:CT Repository 05/26/2018 [id number] Ambulatory [facility]MSBuilding: [place] [facility]MS.CF.[facility] Repository 04/28/2018 [id number] Ambulatory BMSBuilding: [place] BMS.[facility] Repository 03/31/2018 [id number] Ambulatory [facility]MS[facility]: [place] [facility] Repository 03/03/2018 [id number] Ambulatory BMSBuilding: [place] [facility] Repository 02/03/2018 [id number] Ambulatory BMSBuilding: [place] [facility] Repository 01/27/2018 [id number] Ambulatory BMSBuilding: [place] BMS.[facility]ly [facility] Repository 01/13/2018 [id number] Ambulatory [facility]MSBuilding: [place] [facility]MS.CF.[facility] Repository 01/10/2018 [id number] Ambulatory [facility] ding:ONC Repository 01/03/2018 [id number] Ambulatory [facility] ding:ONC Repository 12/21/2017 [id number] Ambulatory BMSBuilding: [place] BMS.[facility]ly [facility] Repository 11/23/2017 [id number] Ambulatory BMSBuilding: [place] BMS.CF.[facility] Repository 11/09/2017/11/10/19 [id number] Ambulatory [address] ding:[facility] Repository 10/26/2017 [id number] Ambulatory BMSBuilding: [place] BMS.Formerly [facility] Repository 10/12/2017 [id number] Ambulatory BMSBuilding: [place] [facility]MS.[facility]ly [facility] Repository 10/07/2017 [id number] Ambulatory [facility] ding:CT Repository 09/28/2017 [id number] Ambulatory BMSBuilding: [place] BMS.[facility]ly [facility] Repository PAYERS PAYERS ENCOUNTER GUARANTOR PAYER SUBSCRIBER SOURCE 09/13/2018 MULU Huerta Primary MULU ALEXANDER[address] Insurance:PATRICK JACOBSB: [facility] HEALTH PLAN [id number] Hospital [address]Ego: (525) HMOPolicy Number: Repository [phone] (SA) [id number] Date:3757-51-04Lo [address] [address]QC: 09/13/2018 Secondary NOT GIVENUNK [place] Insurance:SELF PAY [facility] Number: Effective Repository Date:2018-09-13 09/13/2018 MULU Huerta Primary MULU [address] Insurance:PATRICK MOOREDOB: [facility] [id number] Hospital [address]Ekd: (330) [facility]ository [phone] () [id number] Date:2852-78-24Fu [address], [place] [address]FN: 09/13/2018 Secondary NOT GIVENUNK [place] Insurance:SELF PAY [facility] Number: Effective Repository Date:2016-11-09 09/09/2018 MULU Huerta Primary MULU [address] Insurance:PATRICK MOOREDOB: [facility] [id number] Hospital [address]Bnj: (330) [facility] [phone] () [id number] Date:8642-71-12Tq [address], [place] [address]WX: 09/09/2018 Secondary NOT GIVENUNK [place] Insurance:SELF PAY [facility] Number: Effective Repository Date:2018-08-30 09/02/2018 MULU Huerta Primary MULU [address] Insurance:PATRICK ROCKLINDOB: [facility] [id number] Hospital [address]Qwe: (330) [facility] Repository [phone] () [id number] Date:7119-28-88Mr [address], [place] [address]NL: 09/02/2018 Secondary NOT GIVENUNK [place] Insurance:SELF PAY [facility] Number: Effective Repository Date:2018-08-30 08/30/2018 MULU Huerta Primary MULU [address] Insurance:PATRICK MOOREDOB: [facility] [id number] Hospital [address]Pad: [phone]) [facility] Repository [phone] () [id number] Date:1100-73-22Mx [address] [place] [address]MX: 08/30/2018 Secondary NOT GIVENUNK [place] Insurance:SELF PAY [facility] Number: Effective Repository Date:2018-08-30 07/07/2018 MULU Huerta Primary MULU Contreras [id number] Insurance:PATRICK MOOREDOB: [facility] [id number] Hospital [address]Dil: (330) [facility] Repository [phone] () [id number] Date:7385-39-31Wn [address] [place] [address]DB: 07/07/2018 Secondary NOT GIVENUNK [place] Insurance:SELF PAY [facility] Number: Effective Repository Date:2018-07-07 06/23/2018 MULU Huerta Primary MULU Contreras [id number] Insurance:PATRICK MOOREDOB: [facility] [id number] Hospital [address]Feo: (330) [facility] Repository [phone] () [id number] Date:2584-19-35[address], [place] [address]AC: 06/23/2018 Secondary NOT GIVENUNK [place] Insurance:SELF PAY [facility] Number: Effective Repository Date:2018-06-23 06/07/2018 MULU Huerta Primary MULU Contreras [id number] Insurance:PATRICK MOOREDOB: [facility] [id number] Hospital [address]Hlu: (330) [facility] Repository [phone] () [id number] Date:2275-07-00Qk [address], [place] [address]MF: 06/07/2018 Secondary NOT GIVENUNK [place] Insurance:SELF PAY [facility] Number: Effective Repository Date:2018-05-26 05/26/2018 MULU Huerta Primary MULU Contreras [id number] Insurance:PATRICK MOOREDOB: [facility] [id number] Hospital [address]Rmi: (330) OPolicy Number: Repository [phone] () [id number] Date:2817-38-15[address] [place] [address] [place] [address]MO: 05/26/2018 Secondary NOT GIVENUNK [place] Insurance:SELF PAY [facility] Number: Effective Repository Date:2018-05-26 04/28/2018 Mulu Huerta Primary Mulu Alexander[address] Insurance:PATRICK MooreDOB: [facility] [id number] Hospital [address]Nhp: (330) OPolicy Number: Repository [phone] () [id number] Date:2219-77-04Xx [address] [place] [address]NK: 04/28/2018 Secondary NOT GIVENUNK [place] Insurance:SELF PAY [facility] Number: Effective Repository Date:2018-04-28 03/31/2018 Mulu Huerta Primary Mulu Alexander[address] Insurance:PATRICK MooreDOB: [facility] [id number] Hospital [address]Ucp: (330) OPolicy Number: Repository [phone] () [id number] Date:1070-47-21Sb [address], [place] [address]JU: 03/31/2018 Secondary NOT GIVENUNK [place] Insurance:SELF PAY [facility] Number: Effective Repository Date:2018-03-31 03/03/2018 Mulu Huerta Primary Mulu [address] Insurance:PATRICK MooreDOB: [facility] [id number] Hospital [address]Nph: (330) OPolicy Number: Repository [phone] () [id number] Date:2898-03-77Ab [address], [place] [address]UW: 03/03/2018 Secondary NOT GIVENUNK [place] Insurance:SELF PAY [facility] Number: Effective Repository Date:2018-03-03 02/03/2018 Mulu Huerta Primary Mulu Alexander[address] Insurance:PATRICK MooreDOB: [facility] [id number] [id number]: [facility] Repository [phone] [id number] () Date:3433-81-68Sl [address], [place] [address]OU: 02/03/2018 Secondary NOT GIVENUNK [place] Insurance:SELF PAY [facility] Number: Effective Repository Date:2018-02-03 01/27/2018 Mulu Huerta Primary Mulu Alexander[address] Insurance:PATRICK MooreDOB: [facility] [id number] [id number]: (330) [facility] Repository [phone] () [id number] Date:1163-11-82Kt [address] [place] [address]FA: 01/27/2018 Secondary NOT GIVENUNK [place] Insurance:SELF PAY [facility] Number: Effective Repository Date:2018-01-27 01/13/2018 Mulu Huerta Primary Mulu [address] Insurance:PATRICK MooreDOB: [facility] [id number] Hospital [address]Cxz: [facility]: Repository [phone] [id number] () Date:6611-45-94Ic [address] [address]VR: 01/13/2018 Secondary NOT GIVENUNK [place] Insurance:SELF PAY [facility] Number: Effective Repository Date:2018-01-13 01/10/2018 Mulu Huerta Primary Mulu [address] Insurance:PATRICK MooreDOB: [facility] [id number] Hospital [address]Hkd: [facility]: Repository [phone] [id number] (HP) Date:8342-73-89Qx [address] [address]KZ: 01/10/2018 Secondary NOT GIVENUNK [place] Insurance:SELF PAY [facility] Number: Effective Repository Date:2018-01-06 01/03/2018 Mulu Huerta Primary Mulu [address] Insurance:PATRICK MooreDOB: [facility] [id number] Hospital [address]Wlj: [facility]: Repository [phone] [id number] (HP) Date:3395-16-32Ep [address] [address]LY: 01/03/2018 Secondary NOT GIVENUNK [place] Insurance:SELF PAY [facility] Number: Effective Repository Date:2017-12-30 12/21/2017 Mulu Huerta Primary Mulu [address] Insurance:PATRICK MooreDOB: [facility] [id number] Hospital [address]Xsk: [facility]: Repository [phone] [id number] (HP) Date:8255-21-18Fp [address] [address]SP: 12/21/2017 Secondary NOT GIVENUNK [place] Insurance:SELF PAY [facility] Number: Effective Repository Date:2017-12-21 11/23/2017 Mulu Huerta Primary Mulu [address] Insurance:PATRICK MooreDOB: [facility] [id number] [id number]: [facility]: Repository [phone] [id number] (HP) Date:7492-30-62Ii [address] [address]YF: 11/23/2017 Secondary NOT GIVENUNK [place] Insurance:SELF PAY [facility] Number: Effective Repository Date:2017-11-23 11/09/2017 MULU Huerta Primary [facility]ULU Huerta [facility] Insurance:PRIME TIME MOOREDOB: [facility] [place]Policy [id number] Repository [facility], Number: [address] [facility] [address]Zzc: [id number] [place] Date:2017-11-09 [address]Ekw: (516) (HP)Tel: [phone] [id number] [phone] (WP) Name:[address] ()Tel: [phone] [phone], [place] [phone] (WP) [address]BY: 10/26/2017 Mulu M Primary Mulu Contreras [id number] Insurance:[facility]: [facility] [id number] Hospital [address]Vmr: [facility] Number: Repository [phone] [id number] (HP) Date:[id number] [place] [address]ZG: 10/26/2017 Secondary NOT GIVENUNK [place] Insurance:SELF PAY [facility] Number: Effective Repository Date:2017-10-26 10/12/2017 Mulu Huerta Primary Mulu Contreras [id number] [facility] [id number] Hospital [address]Drg: OPolicy Number: Repository [phone] [id number] (HP) Date:[id number] [address] [address]CC: 10/12/2017 Secondary NOT GIVENUNK [place] Insurance:SELF PAY [facility] Number: Effective Repository Date:2017-10-12 10/07/2017 Mulu Huerta Primary Mulu [id number] [facility] [id number] Hospital [address]ft[facility] [phone] [id number] (HP) Date:[id number] [place] [address]PY: 10/07/2017 Secondary NOT GIVENUNK [place] Insurance:SELF PAY [facility] Number: Effective Repository Date:2017-09-28 09/28/2017 Mulu Huerta Primary Mulu [id number] [facility] [id number] Hospital [address]Qfz: [facility] Number: Repository [phone] [id number] (HP) Date:[id number] [address] [address]OF: 09/28/2017 Secondary NOT GIVENUNK [place] Insurance:SELF PAY [facility] Number: Effective Repository Date:2017-09-28
== END ==
PROVIDERS: Family Provider Nurse Practitioner Family; PCP Nurse Practitioner Family; Referring Provider Internal Medicine Medical Oncology; Visit Provider Internal Medicine Medical Oncology
DX: C56.9 Malignant neoplasm of unspecified ovary (principal); R97.8 Other abnormal tumor markers
CPT/HCPCS: 78306

== ENCOUNTER 2018-12-11 13:13 | Observation (INO) | payer MEDICARE, SELFPAY ==
[2018-12-07 10:15] VITALS: BMI 36.7
[2018-12-11 13:50] VITALS: O2SAT 96
[2018-12-11 14:14] VITALS: PULSE 61
--- NOTE | 2018-12-11 14:39 | PCM.HP.STD ---
Problem List (1) Respiratory insufficiency Status: Acute (2) Elevated troponin Status: Acute (3) Ovarian cancer Status: Chronic Qualifiers: (4) CAD (coronary artery disease) Status: Chronic (5) COPD (chronic obstructive pulmonary disease) Status: Chronic History of Present Illness Date of Admission: 12/11/18 Chief Complaint: SOB The patient is a 78 year old F with a pmhx of ovarian cancer s/p hysterectomy currently undergoing chemo with Dr. Berg, last round 12/07 with avastin, carboplatin, gemzar, also with a hx of CAD with 2 prior stents, CHF, mild COPD, former smoker, who was sent here from [place] ER where she presented with SOB. She has been progressively more SOB for 2 days. She notes that she is very SOB with exertion, SOB when laying flat, and waking up at night SOB and with coughing bouts and gasping for air. She has no pleurisy. Her cough is nonproductive. She has had chills. She denies sick contacts. She has noticed a 6 lb weight gain this past week, and noticed increased LE edema progressively for the past week. She was reportedly hypoxic on room at at 83%, currently maintained on 3lpm NC. She had a CTA chest in the ER with no infiltrates or PE, it showed small pleural effusions. Her WBC was low as it has been. She does not have a fever. [] Past Medical History Past Medical History (Chronic Problems): Chronic Problems (Last Reviewed 12/07/18 @ 10:13 by Dulce Feldman) Nausea (Chronic) Abnormal laboratory test result (Chronic) CAD (coronary artery disease) (Chronic) COPD (chronic obstructive pulmonary disease) (Chronic) Ovarian metastasis (Chronic) Ovarian cancer (Chronic) Medical History: Medical History (Last Reviewed 12/07/18 @ 10:13 by Dulce Feldman) Anxiety F41.9 Asthma J45.909 CHF (congestive heart failure) I50.9 GERD (gastroesophageal reflux disease) K21.9 History of hysterectomy Z98.890, Z90.710 MED PORT PLACEMENT Pneumonia J18.9 Hypertension I10 Allergies morphine Adverse Reaction (Severe, Verified 12/07/18 10:13) Nausea/Vom/Diarrhea niacin [From Niaspan Extended-Release] Adverse Reaction (Severe, Verified 12/07/18 10:13) Nausea Home Medications: Ambulatory Orders Medication Instructions Recorded Carvedilol [Coreg] 18.75 mg PO BID 07/30/16 Losartan Potassium [Cozaar] 100 mg PO DAILY 07/30/16 Pantoprazole Sodium [Protonix] 40 mg PO DAILY 07/30/16 Fluticasone 44 Mcg [Flovent (SP)] 2 puff INHALATION BID PRN 08/03/16 Fluticasone Propionate [Flonase 9.9 ml NS BID PRN 08/03/16 Allergy Relief] Omeprazole [Prilosec] 20 mg PO DAILY PRN 09/14/16 Montelukast [Singulair] 10 mg PO DAILY PRN 05/05/17 Prochlorperazine Maleate 10 mg PO Q6H PRN PRN #30 tablet 06/22/17 Ondansetron HCl [Zofran] 4 mg PO Q8H PRN PRN 30 Days #30 tab 11/16/18 Surgical History: Surgical History (Last Reviewed 12/07/18 @ 10:13 by Dulce Feldman) History of heart artery stent Z95.5 X 2 S/P cholecystectomy Z90.49 Surgical History: cholecystectomy, hysterectomy 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 Denies: Fever HEENT: Denies: Head Aches, Sinus Congestion, Sinus Drainage Cardiovascular: Reports: Edema, Orthopnea, Paroxysmal Noc. Dyspnea. Denies: Chest Pain, Chest Pressure, Chest Tightness, Heaviness, Light Headedness, Palpitations, Syncope Respiratory: Reports: Cough, Shortness of Breath, Shortness of breath at rest, Shortness of breath upon exertion. Denies: Hemoptysis, Pleuritic Pain, Sputum production, Wheezing Gastrointestinal: Denies: Abdominal Pain, Nausea, Vomiting Genitourinary: Denies: Dysuria Musculoskeletal: Denies: Joint Pain, Joint Tenderness Skin: Denies: Rash, Wounds Neurological: Denies: Numbness, Tingling, Focal weakness Psychiatric: Denies: Anxiety, Depression, Homicidal Ideations, Suicidal Ideations Hematologic/ Lymphatic: Denies: Easy Bruising, Easy Bleeding VTE Information - Inpt Only VTE Present on Admission: No VTE Mechan Device Prophylaxis: None VTE Pharm Prophylaxis ordered?: Yes Patient Problems: Active and Suspected Problems (Last Reviewed 12/07/18 @ 10:13 by Dulce Feldman) Respiratory insufficiency (Acute) Elevated troponin (Acute) - Physical Exam General: Alert, Oriented x3, Cooperative HEENT: Atraumatic, PERRLA, EOMI, Normocephalic Neck: Supple, No JVD, Negative Carotid Bruits Lungs: Diminished, Rales - faint bibasilar rales Cardiovascular: Regular rate, No murmurs Abdomen: Bowel Sounds Present, Soft, Non Tender Extremities: Capillary Refill Less than 3 Seconds, Edema Skin: No rashes, No breakdown Musculoskeletal: No Tenderness to Palpation of Joints or Extremities Neurological: Cranial nerves II-XII grossly intact Psych/Mental Status: Normal Affect, Appropriate, Alert and oriented to time, place, person, mood and affect Vital Signs Pulse Ox 96 12/11/18 13:50 Oxygen Flow Rate (L/min) 3 Oxygen Delivery Method Nasal Cannula Body Mass Index (BMI) 36.7 Assessment/Plan All Active Problems (Last Reviewed 12/07/18 @ 10:13 by Dulce Feldman) Chemotherapy-induced thrombocytopenia (Acute) Respiratory insufficiency (Acute) Elevated troponin (Acute) Vomiting (Resolved) Peritoneal carcinomatosis (Acute) Educational circumstance (Acute) Malignant neoplasm of right ovary (Resolved) Hand foot syndrome (Acute) Hand foot syndrome (Acute) Encounter for adjustment or management of vascular access device (Acute) 1. Acute hypoxic respiratory insufficiency - exact etiology unclear. Requiring 3 lpmShe has small pleural effusions on CTA chest, no infiltrate and no PE. She has an elevated BNP. She has increased PND and orthopnea. She gained 6 lbs this past week. She has increased LE edema this week. She does have a hx of diastolic CHF. She was given lasix in [facility]. She does not have wheezing on exam. PRN aerosols. [facility] reported wheezing, and she does have a hx of mild COPD for which she takes flovent and singulair. Her cough is nonproductive, and she denies sick contacts. [facility] gave her Rocephin and Azithro for suspected pna. -obtain echo -obtain viral panel 2. Elevated troponin - 0.05. Trend. EKG is NSR, repeat in AM. Maintain on tele. No CP. 3. Ovarian CA - Pt of Dr. Berg. Last chemo 12/07. Low WBC/neutrophils. Trend 4. CAD - prior stents 2014. Reportedly echo in 2016 EF was preserved. I cant find a record of this in our system. DVT ppx: SCDs, recently with significant severe thrombocytopenia This patient was seen by Porter Wild PA-C under the supervision of Dr. Escalera.
--- NOTE | 2018-12-11 14:43 | HP.PCM_ITS ---
Problem List (1) Respiratory insufficiency Status: Acute (2) Elevated troponin Status: Acute (3) Ovarian cancer Status: Chronic Qualifiers: (4) CAD (coronary artery disease) Status: Chronic (5) COPD (chronic obstructive pulmonary disease) Status: Chronic History of Present Illness Date of Admission: 12/11/18 Chief Complaint: SOB The patient is a 78 year old F with a pmhx of ovarian cancer s/p hysterectomy currently undergoing chemo with Dr. Berg, last round 12/07 with avastin, carboplatin, gemzar, also with a hx of CAD with 2 prior stents, CHF, mild COPD, former smoker, who was sent here from [place] ER where she presented with SOB. She has been progressively more SOB for 2 days. She notes that she is very SOB with exertion, SOB when laying flat, and waking up at night SOB and with coughing bouts and gasping for air. She has no pleurisy. Her cough is nonp roductive. She has had chills. She denies sick contacts. She has noticed a 6 lb weight gain this past week, and noticed increased LE edema progressively for the past week. She was reportedly hypoxic on room at at 83%, currently maintained on 3lpm NC. She had a CTA chest in the ER with no infiltrates or PE, it showed small pleural effusions. Her WBC was low as it has been. She does not have a fever. [] Past Medical History Past Medical History (Chronic Problems): Chronic Problems (Last Reviewed 12/07/18 @ 10:13 by Dulce Feldman) Nausea (Chronic) Abnormal laboratory test result (Chronic) CAD (coronary artery disease) (Chronic) COPD (chronic obstructive pulmonary disease) (Chronic) Ovarian metastasis (Chronic) Ovarian cancer (Chronic) Medical History: Medical History (Last Reviewed 12/07/18 @ 10:13 by Dulce Feldman) Anxiety F41.9 Asthma J45.909 CHF (congestive heart failure) I50.9 GERD (gastroesophageal reflux disease) K21.9 History of hysterectomy Z98.890, Z90.710 MED PORT PLACEMENT Pneumonia J18.9 Hypertension I10 Allergies morphine Adverse Reaction (Severe, Verified 12/07/18 10:13) Nausea/Vom/Diarrhea niacin [From Niaspan Extended-Release] Adverse Reaction (Severe, Verified 12/07/18 10:13) Nausea Home Medications: Ambulatory Orders Medication Instructions Recorded Carvedilol [Coreg] 18.75 mg PO BID 07/30/16 Losartan Potassium [Cozaar] 100 mg PO DAILY 07/30/16 Pantoprazole Sodium [Protonix] 40 mg PO DAILY 07/30/16 Fluticasone 44 Mcg [Flovent (SP)] 2 puff INHALATION BID PRN 08/03/16 Fluticasone Propionate [Flonase 9.9 ml NS BID PRN 08/03/16 Allergy Relief] Omeprazole [Prilosec] 20 mg PO DAILY PRN 09/14/16 Montelukast [Singulair] 10 mg PO DAILY PRN 05/05/17 Prochlorperazine Maleate 10 mg PO Q6H PRN PRN #30 tablet 06/22/17 Ondansetron HCl [Zofran] 4 mg PO Q8H PRN PRN 30 Days #30 tab 11/16/18 Surgical History: Surgical History (Last Reviewed 12/07/18 @ 10:13 by Dulce Feldman) History of heart artery stent Z95.5 X 2 S/P cholecystectomy Z90.49 Surgical History: cholecystectomy, hysterectomy 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 Denies: Fever HEENT: Denies: Head Aches, Sinus Congestion, Sinus Drainage Cardiovascular: Reports: Edema, Orthopnea, Paroxysmal Noc. Dyspnea. Denies: Chest Pain, Chest Pressure, Chest Tightness, Heaviness, Light Headedness, Palpitations, Syncope Respiratory: Reports: Cough, Shortness of Breath, Shortness of breath at rest, Shortness of breath upon exertion. Denies: Hemoptysis, Pleuritic Pain, Sputum production, Wheezing Gastrointestinal: Denies: Abdominal Pain, Nausea, Vomiting Genitourinary: Denies: Dysuria Musculoskeletal: Denies: Joint Pain, Joint Tenderness Skin: Denies: Rash, Wounds Neurological: Denies: Numbness, Tingling, Focal weakness Psychiatric: Denies: Anxiety, Depression, Homicidal Ideations, Suicidal Ideations Hematologic/ Lymphatic: Denies: Easy Bruising, Easy Bleeding VTE Information - Inpt Only VTE Present on Admission: No VTE Mechan Device Prophylaxis: None VTE Pharm Prophylaxis ordered?: Yes Patient Problems: Active and Suspected Problems (Last Reviewed 12/07/18 @ 10:13 by Dulce Feldman) Respiratory insufficiency (Acute) Elevated troponin (Acute) - Physical Exam General: Alert, Oriented x3, Cooperative HEENT: Atraumatic, PERRLA, EOMI, Normocephalic Neck: Supple, No JVD, Negative Carotid Bruits Lungs: Diminished, Rales - faint bibasilar rales Cardiovascular: Regular rate, No murmurs Abdomen: Bowel Sounds Present, Soft, Non Tender Extremities: Capillary Refill Less than 3 Seconds, Edema Skin: No rashes, No breakdown Musculoskeletal: No Tenderness to Palpation of Joints or Extremities Neurological: Cranial nerves II-XII grossly intact Psych/Mental Status: Normal Affect, Appropriate, Alert and oriented to time, place, person, mood and affect Vital Signs Pulse Ox 96 12/11/18 13:50 Oxygen Flow Rate (L/min) 3 Oxygen Delivery Method Nasal Cannula Body Mass Index (BMI) 36.7 Assessment/Plan All Active Problems (Last Reviewed 12/07/18 @ 10:13 by Dulce Feldman) Chemotherapy-induced thrombocytopenia (Acute) Respiratory insufficiency (Acute) Elevated troponin (Acute) Vomiting (Resolved) Peritoneal carcinomatosis (Acute) Educational circumstance (Acute) Malignant neoplasm of right ovary (Resolved) Hand foot syndrome (Acute) Hand foot syndrome (Acute) Encounter for adjustment or management of vascular access device (Acute) 1. Acute hypoxic respiratory insufficiency - exact etiology unclear. Requiring 3 lpmShe has small pleural effusions on CTA chest, no infiltrate and no PE. She has an elevated BNP. She has increased PND and orthopnea. She gained 6 lbs this past week. She has increased LE edema this week. She does have a hx of diastolic CHF. She was given lasix in [facility]. She does not have wheezing on exam. PRN aerosols. [facility] reported wheezing, and she does have a hx of mild COPD for which she takes flovent and singulair. Her cough is nonproductive, and she denies sick contacts. [facility] gave her Rocephin and Azithro for suspected pna. -obtain echo -obtain viral panel 2. Elevated troponin - 0.05. Trend. EKG is NSR, repeat in AM. Maintain on tele. No CP. 3. Ovarian CA - Pt of Dr. Berg. Last chemo 12/07. Low WBC/neutrophils. Trend 4. CAD - prior stents 2014. Reportedly echo in 2016 EF was preserved. I cant find a record of this in our system. DVT ppx: SCDs, recently with significant severe thrombocytopenia This patient was seen by Porter Wild PA-C under the supervision of Dr. Escalera.
[2018-12-11 15:02] VITALS: BP 178/68; PULSE 60; RESP 17; TEMP 36.8; O2SAT 95; BMI 37.1
--- NOTE | 2018-12-11 15:13 | EKG12_ITS ---
Test Reason : SOB Blood Pressure : / mmHG Vent. Rate : 062 BPM Atrial Rate : 062 BPM P-R Int : 142 ms QRS Dur : 086 ms QT Int : 402 ms P-R-T Axes : 004 010 030 degrees QTc Int : 408 ms Normal sinus rhythm Normal ECG When compared with ECG of 15-FEB-2017 16:58, No significant change was found Confirmed by CRAIG ROTHMAN ([id number]), sound editor TYRONE DORSEY ([id number]) on 12/15/2018 11:09:29 AM Referred By: MARCIN Confirmed By:CRAIG ROTHMAN
[2018-12-11] MEDS: levoFLOXacin 500 MG Tablet PO (17:51)
[2018-12-11] MEDS: Acetaminophen 325 MG Tablet 650 MG PO (18:58)
[2018-12-11 19:00] VITALS: PULSE 74
[2018-12-11 21:02] VITALS: BP 156/79; PULSE 61; RESP 18; TEMP 36.8; O2SAT 96
[2018-12-11] MEDS: 0.9% NaCl Peripheral Flush Adult/Peds IV ×3 (21:09→22:03)
[2018-12-11] MEDS: Carvedilol 12.5 MG Tablet 18.75 MG PO (21:55)
[2018-12-11] MEDS: Furosemide 20 MG/2 ML VIAL IV (21:59)
[2018-12-11 23:00] VITALS: PULSE 66
[2018-12-12] VITALS (14 sets, daily range): BP systolic 155–197; BP diastolic 70–93; PULSE 63–83; RESP 16–18; TEMP 36.6–36.9; O2SAT 89–96
[2018-12-12] MEDS: 0.9% NaCl Peripheral Flush Adult/Peds IV ×7 (05:26→21:16)
[2018-12-12] MEDS: levoFLOXacin 500 MG Tablet PO (05:43)
[2018-12-12] MEDS: Furosemide 20 MG/2 ML VIAL IV ×3 (05:43→21:11)
[2018-12-12 06:10] LABS: BUN 15 mg/dL (7-18); Creatinine, Serum 0.88 mg/dL (0.55-1.02); Estimated Creatinine Clearance 46.96 ml/min; Glucose 93 mg/dL (74-106)
[2018-12-12 06:11] LABS: Anion Gap 6 (5-15); Calcium,Total 8.6 mg/dL (8.5-10.1); Chloride 100 mmol/L (98-107); Cholesterol 131 mg/dL (200); EST Glomerular Filtration Rate 66 mL/min (>60); Est Glom Filt Rate - Afr Amer 80 mL/min (>60); High Density Lipoprotein 48 mg/dL; Potassium 4.1 mmol/L (3.5-5.1); Sodium Level 140 mmol/L (136-145); Triglycerides 111 mg/dL; Very Low Density Lipoprotein 22 mg/dL (5-40)
[2018-12-12 07:11] LABS: Absolute Lymphocyte Count 0.55 X10^3/ul (0.83-4.51); Absolute Neutrophil Count 0.4 X10^3/uL (2.0-7.7); Basophil# 0.01 X10^3/uL; Basophil% 0.9 % (0-1); Eosinophil# 0.07 X10^3/uL; Eosinophils% 6.6 % (0-5); Hematocrit 30.3 % (37-47); Hemoglobin 9.8 g/dl (12.0-15.0); Lymphocyte # 0.55 X10^3/ul (4.0); Lymphocyte % 51.9 % (19-41); Mean Corp Hgb Conc 32.3 g/gl (32-36); Mean Corpuscular Hgb 29.3 pg (27.0-32.0); Mean Corpuscular Volume 90.7 fL (81-99); Mean Platelet Vol. 10.7 fl (6.2-12.0); Monocyte# 0.03 X10^3/uL; Monocyte% 2.8 % (0-10); Neutrophil % 37.8 % (47-70); Platelet Count 208 K/mm3 (150-450); RBC Distribution Width CV 14.7 % (11.6-14.6); RBC Distribution Width SD 46.4 fl (35.1-43.9); Red Blood Count 3.34 M/mm3 (4.2-5.4)
[2018-12-12 07:18] LABS: Differential Indicated SCAN CRITERIA MET; POSITIVE COUNT YES; POSITIVE DIFFERENTIAL YES; POSITIVE MORPHOLOGY NO; White Blood Count 1.1 K/mm3 (4.4-11.0)
[2018-12-12] MEDS: Enoxaparin 40 MG/0.4 ML Syringe SC (09:00)
[2018-12-12] MEDS: Carvedilol 12.5 MG Tablet 18.75 MG PO ×2 (09:00→21:11)
[2018-12-12] MEDS: Pantoprazole Sodium 40 MG Tablet PO (09:01)
[2018-12-12] MEDS: Losartan Potassium 100 MG Tablet PO (09:01)
[2018-12-12] MEDS: hydrALAZINE 25 MG Tablet PO ×3 (10:03→21:11)
--- NOTE | 2018-12-12 10:35 | RAD_ITS ---
STUDY: X-RAY CHEST REASON FOR EXAM: Female, 78 years old. Shortness of breath TECHNIQUE: Single AP portable view of the chest. COMPARISON: Chest x-ray 02/15/2017 FINDINGS: Right-sided [id number] tip overlies the SVC. There is suggestion of bronchial wall thickening. No focal pulmonary consolidation. There is no demonstrated pleural abnormality. Stable heart size. Normal mediastinum and eva. Normal visualized pulmonary arteries. Normal visualized aortic arch and descending thoracic aorta. Normal visualized thoracic spine. Normal visualized ribs, clavicles, and shoulders. There is no demonstrated abnormality of the visualized soft tissue structures of the upper abdomen. RAD/Chest 1 View (Portable) IMPRESSION: Suggestion of bronchial wall thickening may represent bronchitis. No focal pulmonary consolidation. Electronically Signed: Alex Perales, at 16:44 EDT Tel , Service support ,
[2018-12-12 13:07] LABS: Pathologist Review Reviewed
--- NOTE | 2018-12-12 14:20 | PCM.PROGNOTE ---
<Porter Wild - Last Filed: 12/12/18 14:20> Patient Problems: Active and Suspected Problems (Last Reviewed 12/07/18 @ 10:13 by Dulce Feldman) Respiratory insufficiency (Acute) Elevated troponin (Acute) Subjective: Pt reports good urinary output - this was initially not tracked so I/O not accurate in EMR. Pt states her weight improved 3 pounds since admission. Breathing has improved. She is able to tolerate laying flat more now. LE edema improved. Oxygen requirement has also decreased since admission. - Physical Exam General: Alert, Oriented x3, Cooperative HEENT: Atraumatic, PERRLA, EOMI, Normocephalic Neck: Supple, No JVD, Negative Carotid Bruits Lungs: Normal air movement, Rales - fine rales BL bases Cardiovascular: Regular rate, No murmurs Abdomen: Bowel Sounds Present, Soft, Non Tender Extremities: Capillary Refill Less than 3 Seconds, Edema - mild non pitting, improved from yesterday Skin: No rashes, No breakdown Musculoskeletal: No Tenderness to Palpation of Joints or Extremities Neurological: Cranial nerves II-XII grossly intact Psych/Mental Status: Normal Affect, Appropriate, Alert and oriented to time, place, person, mood and affect Vital Signs Temp Pulse Resp BP Pulse Ox 98.3 F 63 18 155/70 H 93 12/12/18 09:00 12/12/18 11:11 12/12/18 09:00 12/12/18 11:11 12/12/18 14:09 Oxygen Flow Rate (L/min) 1 Oxygen Delivery Method Room Air Weight: 216 lb 4.375 oz Body Mass Index (BMI) 37.1 Intake and Output for Last 24 Hours 12/10/18 12/11/18 12/12/18 23:59 23:59 23:59 Intake Total 180 / 180 780 / 780 Output Total 800 / 800 Balance 180 / 180 -20 / -20 Microbiology Past 72 Hours 12/11/18 15:07 Respiratory Panel (PCR) - Final Mucosa - Nasopharyngeal Laboratory Tests Past 24 Hrs 12/11/18 12/11/18 12/11/18 15:35 18:40 21:00 WBC RBC Hgb Hct MCV MCH MCHC RDW RDW Differential Plt Count MPV Immature Gran % (Auto) Neut % (Auto) Lymph % (Auto) [place] % (Auto) Eos % (Auto) Baso % (Auto) Absolute Neuts (auto) Absolute Lymphs (auto) Total Counted Differential Comment Diff Path Review Sodium Potassium Chloride Carbon Dioxide Anion Gap BUN Creatinine Estim Creat Clear Calc Est GFR (MDRD) Af Amer Est GFR (MDRD) Non-Af BUN/Creatinine Ratio Glucose Calcium Troponin I 0.039 0.033 0.032 Triglycerides Cholesterol LDL Cholesterol VLDL Cholesterol HDL Cholesterol 12/12/18 12/12/18 05:10 05:10 WBC 1.1 L* RBC 3.34 L Hgb 9.8 L Hct 30.3 L MCV 90.7 MCH 29.3 MCHC 32.3 RDW 14.7 H RDW Differential 46.4 H Plt Count 208 MPV 10.7 Immature Gran % (Auto) 0.000 Neut % (Auto) 37.8 L Lymph % (Auto) 51.9 H [place] % (Auto) 2.8 Eos % (Auto) 6.6 H Baso % (Auto) 0.9 Absolute Neuts (auto) 0.4 L Absolute Lymphs (auto) 0.55 L Total Counted Not Reportable Differential Comment Diff Path Review Reviewed Sodium 140 Potassium 4.1 Chloride 100 Carbon Dioxide 34.0 H Anion Gap 6 BUN 15 Creatinine 0.88 Estim Creat Clear Calc 46.96 Est GFR (MDRD) Af Amer 80 Est GFR (MDRD) Non-Af 66 BUN/Creatinine Ratio 17.0 Glucose 93 Calcium 8.6 Troponin I Triglycerides 111 Cholesterol 131 LDL Cholesterol 61 VLDL Cholesterol 22 HDL Cholesterol 48 Medical Necessity - Tobacco Use Smoking Status: Former smoker Tobacco Use: Non-smoker Assessment/Plan All Active Problems (Last Reviewed 12/07/18 @ 10:13 by Dulce Feldman) Chemotherapy-induced thrombocytopenia (Acute) Respiratory insufficiency (Acute) Elevated troponin (Acute) Vomiting (Resolved) Peritoneal carcinomatosis (Acute) Educational circumstance (Acute) Malignant neoplasm of right ovary (Resolved) Hand foot syndrome (Acute) Hand foot syndrome (Acute) Encounter for adjustment or management of vascular access device (Acute) 1. Acute hypoxic respiratory insufficiency 2/2 Acute diastolic CHF exacerbation - improving with lasix. Continue to diurese -Echo pending -DC abx -repeat cxr pending -no PE on bolton CTA, there were small pleural effusions. 2. Elevated troponin - 0.05 per bolton. Negative while here. EKG negative. No CP. 3. Ovarian CA - Pt of Dr. Berg. Last chemo 12/07. Low WBC/neutrophils. Trend. 4. CAD - prior stents . Reportedly echo in 2017 EF was preserved. I cant find a record of this in our system. Repeat echo pending. DVT ppx: Lovenox, hx of low platelets, will trend. This patient was seen by Porter Wild PA-C under the supervision of Dr. Craft <Slick Craft - Last Filed: 12/12/18 14:40> - Physical Exam Vital Signs Temp Pulse Resp BP Pulse Ox 98.3 F 63 18 155/70 H 93 12/12/18 09:00 12/12/18 11:11 12/12/18 09:00 12/12/18 11:11 12/12/18 14:09 Oxygen Flow Rate (L/min) 1 Oxygen Delivery Method Room Air Weight: 98.1 kg Body Mass Index (BMI) 37.1 Intake and Output for Last 24 Hours 12/10/18 12/11/18 12/12/18 23:59 23:59 23:59 Intake Total 180 / 180 780 / 780 Output Total 800 / 800 Balance 180 / 180 -20 / -20 Microbiology Past 72 Hours 12/11/18 15:07 Respiratory Panel (PCR) - Final Mucosa - Nasopharyngeal Laboratory Tests Past 24 Hrs 12/11/18 12/11/18 12/11/18 15:35 18:40 21:00 WBC RBC Hgb Hct MCV MCH MCHC RDW RDW Differential Plt Count MPV Immature Gran % (Auto) Neut % (Auto) Lymph % (Auto) [place] % (Auto) Eos % (Auto) Baso % (Auto) Absolute Neuts (auto) Absolute Lymphs (auto) Total Counted Differential Comment Diff Path Review Sodium Potassium Chloride Carbon Dioxide Anion Gap BUN Creatinine Estim Creat Clear Calc Est GFR (MDRD) Af Amer Est GFR (MDRD) Non-Af BUN/Creatinine Ratio Glucose Calcium Troponin I 0.039 0.033 0.032 Triglycerides Cholesterol LDL Cholesterol VLDL Cholesterol HDL Cholesterol 12/12/18 12/12/18 05:10 05:10 WBC 1.1 L* RBC 3.34 L Hgb 9.8 L Hct 30.3 L MCV 90.7 MCH 29.3 MCHC 32.3 RDW 14.7 H RDW Differential 46.4 H Plt Count 208 MPV 10.7 Immature Gran % (Auto) 0.000 Neut % (Auto) 37.8 L Lymph % (Auto) 51.9 H [place] % (Auto) 2.8 Eos % (Auto) 6.6 H Baso % (Auto) 0.9 Absolute Neuts (auto) 0.4 L Absolute Lymphs (auto) 0.55 L Total Counted Not Reportable Differential Comment Diff Path Review Reviewed Sodium 140 Potassium 4.1 Chloride 100 Carbon Dioxide 34.0 H Anion Gap 6 BUN 15 Creatinine 0.88 Estim Creat Clear Calc 46.96 Est GFR (MDRD) Af Amer 80 Est GFR (MDRD) Non-Af 66 BUN/Creatinine Ratio 17.0 Glucose 93 Calcium 8.6 Troponin I Triglycerides 111 Cholesterol 131 LDL Cholesterol 61 VLDL Cholesterol 22 HDL Cholesterol 48 Assessment/Plan This patient was seen in conjunction with Porter Wild PA-C . I have independently interviewed and examined the patient and reviewed pertinent historical, laboratory, and other data. Please refer to Porter Wild PA-C note for details of this patient's presentation, findings, and recommendations. I have reviewed Porter Wild PA-C note and concur with documented findings. In brief, patient is a 78-year-old lady presented with progressive shortness of breath and assessment of acute diastolic congestive heart failure made admitted to a monitored bed for subsequent management Physical Examination: GENERAL: cooperative HEENT: Atraumatic; EYES; Anicteric, NECK; supple, normal thyroid, . RESPIRATORY: Diminished to auscultation bilaterally, CARDIOVASCULAR: Regular S1 S2, GI: soft, non-tender, normoactive bowel sounds, NEURO: Awake; no lateralizing signs. SKIN: No Rash PSYCH; Normal affect Assessment: 1. Diastolic congestive heart failure 2. Elevated troponin secondary to demand ischemia 3. Coronary artery disease previous stent placement 4. Ovarian CA with recurrence patient is on chemo 5. Chemotherapy induced neutropenia 6. Chemo induced thrombocytopenia Recommendations: 1. I have discussed the results of my overview and impressions with the patient 2. Options for management were reviewed Code Visit Inpatient E&M: 46439 Subs Hosp L3
[2018-12-13] VITALS (7 sets, daily range): BP systolic 160–188; BP diastolic 67–79; PULSE 72–80; RESP 16–18; TEMP 36.8–36.9; O2SAT 90–95
[2018-12-13] MEDS: 0.9% NaCl Peripheral Flush Adult/Peds IV ×5 (04:52→10:39)
[2018-12-13] MEDS: hydrALAZINE 25 MG Tablet PO (05:07)
[2018-12-13] MEDS: Furosemide 20 MG/2 ML VIAL IV (05:07)
[2018-12-13 05:08] LABS: Absolute Lymphocyte Count 0.73 X10^3/ul (0.83-4.51); Absolute Neutrophil Count 0.2 X10^3/uL (2.0-7.7); Basophil# 0.02 X10^3/uL; Eosinophil# 0.03 X10^3/uL; Hematocrit 31.8 % (37-47); Hemoglobin 10.5 g/dl (12.0-15.0); Lymphocyte # 0.73 X10^3/ul (4.0); Mean Corpuscular Hgb 29.4 pg (27.0-32.0); Mean Corpuscular Volume 89.1 fL (81-99); Monocyte# 0.06 X10^3/uL; Neutrophil # 0.15 X10^3/uL (2.7-7.7); Platelet Count 213 K/mm3 (150-450); RBC Distribution Width CV 14.2 % (11.6-14.6); RBC Distribution Width SD 44.6 fl (35.1-43.9); Red Blood Count 3.57 M/mm3 (4.2-5.4)
[2018-12-13 05:09] LABS: Differential Indicated SCAN CRITERIA MET; POSITIVE COUNT YES; POSITIVE DIFFERENTIAL YES; POSITIVE MORPHOLOGY YES
[2018-12-13 05:33] LABS: Anion Gap 6 (5-15); BUN 21 mg/dL (7-18); BUN/Creat Ratio 19.8 RATIO (10-20); Calcium,Total 8.7 mg/dL (8.5-10.1); Chloride 98 mmol/L (98-107); Creatinine, Serum 1.06 mg/dL (0.55-1.02); EST Glomerular Filtration Rate 54 mL/min (>60); Est Glom Filt Rate - Afr Amer 65 mL/min (>60); Estimated Creatinine Clearance 38.99 ml/min; Glucose 105 mg/dL (74-106); Magnesium 2.1 mg/dL (1.6-2.6); Potassium 3.5 mmol/L (3.5-5.1); Sodium Level 139 mmol/L (136-145)
[2018-12-13 05:49] LABS: Anisocytosis RARE; Differential Comment SEE COMMENTS; Macrocytosis RARE; Platelet Estimate ADEQUATE (ADEQ)
[2018-12-13] MEDS: Carvedilol 12.5 MG Tablet 18.75 MG PO (09:15)
[2018-12-13] MEDS: Enoxaparin 40 MG/0.4 ML Syringe SC (09:15)
[2018-12-13] MEDS: Losartan Potassium 100 MG Tablet PO (09:15)
[2018-12-13] MEDS: Pantoprazole Sodium 40 MG Tablet PO (09:15)
--- NOTE | 2018-12-13 10:21 | DCINST_ITS ---
- Discharge Diagnoses Current Active Problems: Current Active and Chronic Problems (Last Reviewed 12/07/18 @ 10:13 by Dulce Feldman) Respiratory insufficiency (Acute) Elevated troponin (Acute) CAD (coronary artery disease) (Chronic) COPD (chronic obstructive pulmonary disease) (Chronic) You will use the following diet at home:: Cardiac - 7685-8076 mg sodium daily Your food should be the consistency of: Regular Your liquids should be the consistency of: Regular/Thin Discharge Activity: Return to Normal Activity Additional Instructions: Start cipro course if you develop a fever of 100.4F or greater, and report to the ER. Allergies/Adverse Reactions: Allergies morphine Adverse Reaction (Severe, Verified 12/07/18 10:13) Nausea/Vom/Diarrhea niacin [From Niaspan Extended-Release] Adverse Reaction (Severe, Verified 12/07/18 10:13) Nausea Medications to take at Discharge Carvedilol [Coreg (Beta Sanjuanita)] 18.75 mg PO BID 07/30/16 Losartan Potassium [Cozaar] 100 mg PO DAILY 07/30/16 Pantoprazole Sodium [Protonix] 40 mg PO DAILY 07/30/16 Fluticasone 44 Mcg [Flovent 44 Mcg] 2 puff INHALATION BID PRN 08/03/16 Fluticasone Propionate [Flonase Allergy Relief] 9.9 ml NS BID PRN 08/03/16 Omeprazole [Prilosec] 20 mg PO DAILY PRN 09/14/16 Montelukast [Singulair] 10 mg PO DAILY PRN 05/05/17 Prochlorperazine Maleate 10 mg PO Q6H PRN PRN #30 tablet 06/22/17 Ciprofloxacin [Cipro] 500 mg PO BID PRN PRN #10 tablet 12/13/18 Furosemide [Lasix] 40 mg PO DAILY #30 tablet 12/13/18 Potassium Chloride [K-Dur] 20 meq PO DAILY #30 tablet 12/13/18 hydrALAZINE [Apresoline] 50 mg PO TID #90 tablet 12/13/18 The following prescriptions were given: Ciprofloxacin [Cipro] 500 mg PO BID PRN PRN #10 tablet PRN Reason: Fever Furosemide [Lasix] 40 mg PO DAILY #30 tablet hydrALAZINE [Apresoline] 50 mg PO TID #90 tablet Potassium Chloride [K-Dur] 20 meq PO DAILY #30 tablet Primary Care Physician: Mary Ellen Carranza, LYUDMILA-C [Primary Care Provider] - Please follow up with your Primary Care Physician in: 2 weeks Test Results: Test results from this visit will be discussed in further detail at your follow- up appointment, if applicable. Please Follow Up With: Ilan Berg MD When: Tomorrow Please Follow Up With: Gómez Hector MD When: Call for appointement Proposed Discharge Date: 12/13/18
--- NOTE | 2018-12-13 10:58 | CASEMGMT ---
This NAINA GARCIA to room with SERNA form at this time, explanation done-pt voices understanding, and signs consent at this time. Pt voices no further questions/concerns/needs at this time. Original to chart and copy to pt at this time. SStlayla CHEW CM
--- NOTE | 2018-12-13 11:08 | PHA.DC.MC ---
Pharmacy Service has performed discharge medication reconciliation and counseling for this patient. The patient's discharge medication list was reviewed for discrepancies and discrepancies were resolved. The patient was counseled on the following discharge medications and changes in medications for homegoing were reviewed. 1. CIPROFLOXACIN The Reason for Use, instructions for use, and potential side effects were reviewed for all new medications. The patient's questions regarding all of their medications were answered. The patient was able to verbally demonstrate an understanding of their discharge medications. Home Medications Carvedilol [Coreg (Beta Sanjuanita)] 18.75 mg PO BID 07/30/16 Losartan Potassium [Cozaar] 100 mg PO DAILY 07/30/16 Pantoprazole Sodium [Protonix] 40 mg PO DAILY 07/30/16 Fluticasone 44 Mcg [Flovent 44 Mcg] 2 puff INHALATION BID PRN 08/03/16 Fluticasone Propionate [Flonase Allergy Relief] 9.9 ml NS BID PRN 08/03/16 Omeprazole [Prilosec] 20 mg PO DAILY PRN 09/14/16 Montelukast [Singulair] 10 mg PO DAILY PRN 05/05/17 Prochlorperazine Maleate 10 mg PO Q6H PRN PRN #30 tablet 06/22/17 Ciprofloxacin [Cipro] 500 mg PO BID PRN PRN #10 tablet 12/13/18 Furosemide [Lasix] 40 mg PO DAILY #30 tablet 12/13/18 Potassium Chloride [K-Dur] 20 meq PO DAILY #30 tablet 12/13/18 hydrALAZINE [Apresoline] 50 mg PO TID #90 tablet 12/13/18
[2018-12-13 14:47] LABS: Pathologist Review Reviewed
--- NOTE | 2018-12-13 15:32 | DS.PCM_ITS ---
<Porter Wild - Last Filed: 12/13/18 15:26> Discharge Date and Diagnosis Date of Admission: 12/11/18 Date of Discharge: 12/13/18 - Primary Discharge Diagnosis Acute hypoxic respiratory failure 2/2 Acute on chronic diastolic CHF exacerbation Indeterminate troponin 2/[address] ovarian cancer Neutropenia 2/2 chemo for above CAD prior stents Obesity - Secondary Discharge Diagnosis Chronic Problems (Last Reviewed 12/07/18 @ 10:13 by Dulce Feldman) Nausea (Chronic) Abnormal laboratory test result (Chronic) CAD (coronary artery disease) (Chronic) COPD (chronic obstructive pulmonary disease) (Chronic) Ovarian metastasis (Chronic) Ovarian cancer (Chronic) Hospital Course and Treatment Imaging Results: RAD/Chest 1 View (Portable) IMPRESSION: Suggestion of bronchial wall thickening may represent bronchitis. No focal pulmonary consolidation. Echo: Ejection fraction 55-60% with no regional wall abnormalities, normal LV size and thickness. Concentric left ventricular hypertrophy, mild LVH. Systolic function normal. Trivial pulmonic valve insufficiency, trivial mitral valve insufficiency. Operations: None Procedures: 2-D Echocardiogram Summary of Care Provided: Hospital Course: The patient is a 78 year old F with past medical history of diastolic congestive heart failure, coronary artery disease with prior stents, stage IV ovarian cancer currently undergoing chemotherapy with who presented to the emergency room in [place] with increased shortness of breath and hypoxia on room air. CTA of the chest was done which showed small pleural effusions. She was given IV antibiotics and Lasix and transferred to [facility]. On evaluation here it appears that she was in acute diastolic congestive heart failure as she has had an increase in weight, lower extremity edema, orthopnea, paroxysmal nocturnal dyspnea, has an elevated BNP, and pleural effusions. She was treated with IV Lasix. She responded well to Lasix therapy and had improvement in her breathing, was able to be weaned off oxygen, and improvement in her lower extremity edema. An echocardiogram was obtained which demonstrated an EF of 55-60%, other findings as above. She was transitioned to oral Lasix and was discharged home in stable condition. She will need a follow- up BMP to assess her Lasix and potassium therapy as an outpatient. She will follow-up with her oncologist tomorrow to discuss when to resume chemotherapy. I called Dr. Berg concerning her neutropenia and he advised me to give her as needed ciprofloxacin 500 twice daily to use PRN for fever of 100.4 greater. We instructed her on the proper use of this. If she develops fever she will take it and go to the emergency room. She was discharged home in stable condition. She was also adivsed to follow up with cardiology, she plans to transition her care from Dr. De La Paz to Dr. Hector here in [place]. This patient was seen by Porter Wild PA-C under the supervision of Doctor Venancio. [] - Physical Exam General: Alert, Oriented x3, Cooperative HEENT: Atraumatic, PERRLA, EOMI, Normocephalic Neck: Supple, No JVD, Negative Carotid Bruits Lungs: Clear to auscultation, Normal air movement Cardiovascular: Regular rate, No murmurs Abdomen: Bowel Sounds Present, Soft, Non Tender Extremities: No edema, Capillary Refill Less than 3 Seconds Skin: No rashes, No breakdown Musculoskeletal: No Tenderness to Palpation of Joints or Extremities Neurological: Cranial nerves II-XII grossly intact Psych/Mental Status: Normal Affect, Appropriate, Alert and oriented to time, place, person, mood and affect Vital Signs Temp Pulse Resp BP Pulse Ox 98.3 F 80 16 160/79 H 95 12/13/18 09:00 12/13/18 09:00 12/13/18 09:00 12/13/18 09:00 12/13/18 09:00 Oxygen Flow Rate (L/min) 1 Oxygen Delivery Method Room Air Weight: 212 lb 1.355 oz Body Mass Index (BMI) 37.1 Intake and Output for Last 24 Hours 12/11/18 12/12/18 12/13/18 23:59 23:59 23:59 Intake Total 180 / 180 1340 / 1340 120 / 120 Output Total 2450 / 2450 Balance 180 / 180 -1110 / -1110 120 / 120 Microbiology Past 72 Hours 12/11/18 15:07 Respiratory Panel (PCR) - Final Mucosa - Nasopharyngeal Laboratory Tests Past 24 Hrs 12/13/18 12/13/18 04:50 04:50 WBC 1.0 L* RBC 3.57 L Hgb 10.5 L Hct 31.8 L MCV 89.1 MCH 29.4 MCHC 33.0 RDW 14.2 RDW Differential 44.6 H Plt Count 213 MPV 10.0 Immature Gran % (Auto) 1.000 H Neut % (Auto) 15.0 L Lymph % (Auto) 73.0 H [place] % (Auto) 6.0 Eos % (Auto) 3.0 Baso % (Auto) 2.0 H Absolute Neuts (auto) 0.2 L Absolute Lymphs (auto) 0.73 L Total Counted Not Reportable Differential Comment SEE COMMENTS Diff Path Review Reviewed Platelet Estimate ADEQUATE Anisocytosis RARE Macrocytosis RARE Sodium 139 Potassium 3.5 Chloride 98 Carbon Dioxide 35.0 H Anion Gap 6 BUN 21 H Creatinine 1.06 H Estim Creat Clear Calc 38.99 Est GFR (MDRD) Af Amer 65 Est GFR (MDRD) Non-Af 54 L BUN/Creatinine Ratio 19.8 Glucose 105 Calcium 8.7 Magnesium 2.1 Discharge Diet: Low fat/ Low Cholesterol, - - 7130-9864 mg sodium daily Discharge Activity: Return to Normal Activity Home Medications: Medications to take at Discharge Carvedilol [Coreg (Beta Sanjuanita)] 18.75 mg PO BID 07/30/16 Losartan Potassium [Cozaar] 100 mg PO DAILY 07/30/16 Pantoprazole Sodium [Protonix] 40 mg PO DAILY 07/30/16 Fluticasone 44 Mcg [Flovent 44 Mcg] 2 puff INHALATION BID PRN 08/03/16 Fluticasone Propionate [Flonase Allergy Relief] 9.9 ml NS BID PRN 08/03/16 Omeprazole [Prilosec] 20 mg PO DAILY PRN 09/14/16 Montelukast [Singulair] 10 mg PO DAILY PRN 05/05/17 Prochlorperazine Maleate 10 mg PO Q6H PRN PRN #30 tablet 06/22/17 Ciprofloxacin [Cipro] 500 mg PO BID PRN PRN #10 tablet 12/13/18 Furosemide [Lasix] 40 mg PO DAILY #30 tablet 12/13/18 Potassium Chloride [K-Dur] 20 meq PO DAILY #30 tablet 12/13/18 hydrALAZINE [Apresoline] 50 mg PO TID #90 tablet 12/13/18 Following Prescrptions Were Given to Patient: Ciprofloxacin [Cipro] 500 mg PO BID PRN PRN #10 tablet PRN Reason: Fever Furosemide [Lasix] 40 mg PO DAILY #30 tablet hydrALAZINE [Apresoline] 50 mg PO TID #90 tablet Potassium Chloride [K-Dur] 20 meq PO DAILY #30 tablet Primary Care Physician: Mary Ellen Carranza NP-C [Primary Care Provider] - Please follow up with your Primary Care Physician in: 2 weeks Please Follow Up With: Ilan Berg MD When: Tomorrow Please Follow Up With: Gómez Hector MD When: Call for appointement Disposition: Home Minutes spent on discharge:: 35 Patient Condition:: Stable Medical Necessity - Tobacco Use Smoking Status: Former smoker Tobacco Use: Non-smoker Meaningful Use Info Meaningful Use Diagnoses (Choose all that apply): CHF - CHF MADYSON/ARB ordered at discharge?: No Reason MADYSON/ARB not ordered?: Worsening renal disease Documented LVEF (%): 55 <Slick Craft - Last Filed: 12/13/18 17:15> Discharge Date and Diagnosis - Secondary Discharge Diagnosis Chronic Problems (Last Reviewed 12/07/18 @ 10:13 by Dulce Feldman) Nausea (Chronic) Abnormal laboratory test result (Chronic) CAD (coronary artery disease) (Chronic) COPD (chronic obstructive pulmonary disease) (Chronic) Ovarian metastasis (Chronic) Ovarian cancer (Chronic) Hospital Course and Treatment Summary of Care Provided: This patient was seen in conjunction with Porter Wild PA-C . I have independently interviewed and examined the patient and reviewed pertinent historical, laboratory, and other data. Please refer to Porter Wild PA-C note for details of this patient's presentation, findings, and recommendations. I have reviewed Porter Wild PA-C note and concur with documented findings. In brief, patient is a 78-year-old lady presented with progressive shortness of breath and assessment of acute diastolic congestive heart failure made admitted to a monitored bed for subsequent management Assessment: 1. Diastolic congestive heart failure 2. Elevated troponin secondary to demand ischemia 3. Coronary artery disease previous stent placement 4. Ovarian CA with recurrence patient is on chemo 5. Chemotherapy induced neutropenia 6. Chemo induced thrombocytopenia Hospital course: As documented above by Porter Wild - Physical Exam Vital Signs Temp Pulse Resp BP Pulse Ox 98.3 F 80 16 160/79 H 95 12/13/18 09:00 12/13/18 09:00 12/13/18 09:00 12/13/18 09:00 12/13/18 09:00 Oxygen Flow Rate (L/min) 1 Oxygen Delivery Method Room Air Weight: 96.2 kg Body Mass Index (BMI) 37.1 Intake and Output for Last 24 Hours 12/11/18 12/12/18 12/13/18 23:59 23:59 23:59 Intake Total 180 / 180 1340 / 1340 120 / 120 Output Total 2450 / 2450 Balance 180 / 180 -1110 / -1110 120 / 120 Microbiology Past 72 Hours 12/11/18 15:07 Respiratory Panel (PCR) - Final Mucosa - Nasopharyngeal Laboratory Tests Past 24 Hrs 12/13/18 12/13/18 04:50 04:50 WBC 1.0 L* RBC 3.57 L Hgb 10.5 L Hct 31.8 L MCV 89.1 MCH 29.4 MCHC 33.0 RDW 14.2 RDW Differential 44.6 H Plt Count 213 MPV 10.0 Immature Gran % (Auto) 1.000 H Neut % (Auto) 15.0 L Lymph % (Auto) 73.0 H [place] % (Auto) 6.0 Eos % (Auto) 3.0 Baso % (Auto) 2.0 H Absolute Neuts (auto) 0.2 L Absolute Lymphs (auto) 0.73 L Total Counted Not Reportable Differential Comment SEE COMMENTS Diff Path Review Reviewed Platelet Estimate ADEQUATE Anisocytosis RARE Macrocytosis RARE Sodium 139 Potassium 3.5 Chloride 98 Carbon Dioxide 35.0 H Anion Gap 6 BUN 21 H Creatinine 1.06 H Estim Creat Clear Calc 38.99 Est GFR (MDRD) Af Amer 65 Est GFR (MDRD) Non-Af 54 L BUN/Creatinine Ratio 19.8 Glucose 105 Calcium 8.7 Magnesium 2.1 Code Visit Inpatient E&M: 01049 Disch Hosp
== END 2018-12-13 10:20 | disposition home or self-care (01) ==
PROVIDERS: Physician Assistant; Admitting Provider Internal Medicine; Family Provider Nurse Practitioner Family; PCP Nurse Practitioner Family; Visit Provider Internal Medicine
DX: I11.0 Hypertensive heart disease with heart failure (principal); I50.33 Acute on chronic diastolic (congestive) heart failure; J96.01 Acute respiratory failure with hypoxia; C56.1 Malignant neoplasm of right ovary; D70.2 Other drug-induced agranulocytosis; T45.1X5A Adverse effect of antineoplastic and immunosuppressive drugs, initial encounter; Y92.9 Unspecified place or not applicable; J44.9 Chronic obstructive pulmonary disease, unspecified; I25.10 Atherosclerotic heart disease of native coronary artery without angina pectoris; E66.9 Obesity, unspecified; F41.9 Anxiety disorder, unspecified; K21.9 Gastro-esophageal reflux disease without esophagitis; Z95.5 Presence of coronary angioplasty implant and graft; Z68.37 Body mass index [BMI] 37.0-37.9, adult; Z71.3 Dietary counseling and surveillance; Z87.891 Personal history of nicotine dependence; Z79.899 Other long term (current) drug therapy
CPT/HCPCS: 71045; 80048; 80061; 83735; 84484; 85025; 87633; 93005; 93306; 96372; 96374; 96375; 96376; 97802; 99218; Q9957; A4216; C8929; G0378; J1940

== ENCOUNTER → 2018-12-22 12:40 | Outpatient (CLI) | payer MEDICARE, SELFPAY ==
[2018-12-07 10:15] VITALS: BMI 36.7
[2018-12-11 15:02] VITALS: BMI 37.1
--- NOTE | 2018-12-22 12:42 | CT_ITS ---
STUDY: CT ABDOMEN AND PELVIS WITH CONTRAST REASON FOR EXAM: Female, 78 years old. Ovarian cancer, mass near the stomach RADIATION DOSAGE (If Supplied By Facility): CTDIvol = ( 21.67 ) mGy, DLP = ( 1331.51 ) mGycm TECHNIQUE: Transaxial images were obtained from the dome of the diaphragm to the symphysis pubis with oral contrast. 100ML IV/Oral Isovue 300 was administered. Sagittal and coronal images were reconstructed. Individualized dose optimization techniques were used for this CT. COMPARISON: PET/CT 11/07/2018, CT abdomen pelvis 09/02/2018 FINDINGS: The visualized lung bases are unremarkable. The visualized portions of the heart are within normal limits. Small hiatal hernia. Normal liver. There is non-visualization of the gallbladder, compatible with cholecystectomy. Normal spleen. Normal pancreas. Normal bilateral adrenal glands. Multiple right renal cysts, the largest measuring up to 37 mm. Normal left kidney. Normal visualized stomach. Normal small intestine. There are multiple colonic diverticula consistent with diverticulosis. The appendix is not seen and is reportedly absent. Normal abdominal aorta. Normal inferior vena cava. Normal retroperitoneum. Normal urinary bladder. Hysterectomy. Postoperative changes of the anterior abdominal wall. Normal osseous structures. CT/Abdomen/Pelvis WITH Contrast IMPRESSION: No masses or adenopathy. No new metastatic lesions are seen. Electronically Signed: Lloyd Matthews MD at 17:15 EDT Tel , Service support ,
[2018-12-22] MEDS: 0.9% Saline Lock 10 ML Syringe IV (13:24)
== END ==
PROVIDERS: Family Provider Nurse Practitioner Family; PCP Nurse Practitioner Family; Referring Provider Internal Medicine Medical Oncology; Visit Provider Internal Medicine Medical Oncology
DX: C56.1 Malignant neoplasm of right ovary (principal)
CPT/HCPCS: 74177; J7050; Q9967; A4216

== ENCOUNTER → 2019-02-06 08:01 | Outpatient (CLI) | payer MEDICARE, SELFPAY ==
[2019-01-18 09:00] VITALS: BMI 36.6
[2019-02-02 10:47] VITALS: BMI 36.6
--- NOTE | 2019-02-06 08:02 | CT_ITS ---
STUDY: CT ABDOMEN AND PELVIS WITH CONTRAST REASON FOR EXAM: Female, 78 years old. Restaging of ovarian carcinoma. RADIATION DOSAGE (If Supplied By Facility): CTDIvol = ( 19.75 ) mGy, DLP = ( 1206.31 ) mGycm TECHNIQUE: Transaxial images were obtained from the dome of the diaphragm to the symphysis pubis with oral contrast. 100mL IV/Oral Isovue 300 was administered. Sagittal and coronal images were reconstructed. Individualized dose optimization techniques were used for this CT. COMPARISON: Comparison is made with prior study dated December 22, 2018. FINDINGS: The visualized lung bases are unremarkable. The visualized portions of the heart are within normal limits. There is decreased attenuation of the liver consistent with steatosis. The patient is status post cholecystectomy. Normal spleen. There is diffuse atrophy of the pancreas. Normal bilateral adrenal glands. Stable right renal cysts. The largest measures 3.8 cm. Normal left kidney. There is a small hiatal hernia. Normal small intestine. Normal colon. The patient is status post appendectomy. There is diffuse atherosclerotic calcification of the abdominal aorta, without a demonstrated aneurysm. Normal inferior vena cava. Normal retroperitoneum. Normal urinary bladder. There is absence of the uterus consistent with a prior hysterectomy. There is a small umbilical hernia containing fat. Small left inguinal hernia containing fat. There are mild degenerative changes of the visualized lumbar spine. CT/Abdomen/Pelvis WITH Contrast IMPRESSION: Fatty infiltration of the liver. No acute abnormality is seen. Electronically Signed: Scott Sexton, at 15:49 EDT , Service support ,
== END ==
PROVIDERS: Family Provider Nurse Practitioner Family; PCP Nurse Practitioner Family; Referring Provider Internal Medicine Medical Oncology; Visit Provider Internal Medicine Medical Oncology
DX: C56.1 Malignant neoplasm of right ovary (principal)
CPT/HCPCS: 74177; Q9967; A4216

== ENCOUNTER 2019-03-14 13:28 | Emergency (ER) | payer MEDICARE, SELFPAY ==
[2019-03-06 14:58] VITALS: BMI 38.5
[2019-03-14 13:28] VITALS: BP 192/118; PULSE 81; RESP 18; TEMP 36.7; O2SAT 92; BMI 37.2
[2019-03-14] MEDS: Ondansetron 4 MG/2 ML Vial IV (14:12)
--- NOTE | 2019-03-14 14:20 | RAD_ITS ---
STUDY: X-RAY CHEST REASON FOR EXAM: Female, 78 years old. Hypertension, headache TECHNIQUE: PA and lateral views of the chest. COMPARISON: 12/12/2018 FINDINGS: Stable appearance of a right subclavian Port-A-Cath. The lungs are clear and expanded. There is no demonstrated pleural abnormality. Normal size heart. Normal mediastinum and eva. Normal visualized pulmonary arteries. Normal visualized aortic arch and descending thoracic aorta. Normal visualized thoracic spine. Normal visualized ribs, clavicles, and shoulders. There is no demonstrated abnormality of the visualized soft tissue structures of the upper abdomen. RAD/Chest PA and Lateral IMPRESSION: No acute pulmonary process Electronically Signed: Ildefonso Ch MD at 14:43 EDT , Service support ,
[2019-03-14 14:33] VITALS: O2SAT 96
[2019-03-14 14:41] LABS: Absolute Neutrophil Count 4.1 X10^3/uL (2.0-7.7); Basophil# 0.02 X10^3/uL; Basophil% 0.4 % (0-1); Eosinophil# 0.02 X10^3/uL; Eosinophils% 0.4 % (0-5); Hematocrit 36.3 % (37-47); Hemoglobin 12.2 g/dL (12.0-15.0); Lymphocyte % 16.2 % (19-41); Mean Corp Hgb Conc 33.6 g/dL (32-36); Mean Corpuscular Volume 95.3 fL (81-99); Mean Platelet Vol. 11.8 fl (6.2-12.0); Monocyte# 0.48 X10^3/uL; Monocyte% 8.6 % (0-10); NRBC Flagged by Analyzer 0 % (0-5); Neutrophil # 4.12 X10^3/uL (2.7-7.7); Platelet Count 87 K/mm3 (150-450); RBC Distribution Width CV 14.8 % (11.6-14.6); RBC Distribution Width SD 52.5 fl (35.1-43.9); Red Blood Count 3.81 M/mm3 (4.2-5.4); White Blood Count 5.6 K/mm3 (4.4-11.0)
[2019-03-14 14:48] LABS: Anion Gap 5 (5-15); BUN 18 mg/dL (7-18); BUN/Creat Ratio 21.5 RATIO (10-20); Calcium,Total 9.3 mg/dL (8.5-10.1); Chloride 103 mmol/L (98-107); Creatinine, Serum 0.84 mg/dL (0.55-1.02); EST Glomerular Filtration Rate 70 mL/min (>60); Est Glom Filt Rate - Afr Amer 85 mL/min (>60); Estimated Creatinine Clearance 47.13 ml/min; Glucose 121 mg/dL (74-106); Potassium 4.1 mmol/L (3.5-5.1); Sodium Level 135 mmol/L (136-145)
[2019-03-14] MEDS: Acetaminophen 500 MG Tablet 1000 MG PO (14:57)
[2019-03-14] MEDS: 0.9% Normal Saline 1,000 ML 999 ML IV (14:57)
[2019-03-14 14:58] VITALS: BP 230/87; PULSE 67; RESP 18; O2SAT 95
[2019-03-14] MEDS: hydrALAZINE 20 MG/ML Vial IV (15:30)
--- NOTE | 2019-03-14 15:45 | ED.DCSUM_ITS ---
- ER Visit Summary Date of Service: 03/14/19 Chief Complaint: Headache, nausea hypertension History of Present Illness: The patient is a 78 F who complains of a headache as well as hypertension and nausea. She was at the [facility] couple days ago for the same symptoms. She had a CAT scan of her head and labs which were unremarkable. She states that she has had these symptoms ever since her last chemotherapy on February 08. She is receiving chemotherapy for ovarian cancer but had a negative PET scan is going to be transition to maintenance therapy. Her blood pressure at home is been elevated over 200 systolic. Tylenol is not helping for her headache. She denies any fevers. She has taken nothing for the nausea. Physical Examination: Vital signs reviewed. HEENT exam unremarkable. Heart is regular rate and rhythm without murmurs. Lungs are clear to auscultation. Abdomen is soft and nontender. Extremities reveal no edema. Skin exam normal. Neurologic exam normal. Test Results: Laboratory studies are unremarkable except for sodium of 135. Chest x-ray normal Emergency Department Course and Treatment: The patient was given IV fluids and Tylenol. Her headache is improving. I gave her 1 dose of hydralazine to help with her hypertension and she feels better. I do not see any reason the patient needs to be admitted to the hospital. She will continue her home medications and will call her doctor tomorrow for follow-up Treatment Plan: [] Disposition: Discharge Impression: Headache, hypertension, nausea This note was generated with [employer] aka [employer] dictation software. It may contain incorrect words, spelling, and punctuation that were not noted in review of the chart prior to signing ED Disposition - Plan for ED Patient: Referrals: Mega Bloom MD [Primary Care Provider] -
--- NOTE | 2019-03-14 15:47 | ED.DEP ---
ED Disposition - Plan for ED Patient: Disposition: Home or Assisted Living Instructions: HYPERTENSION, Established Prescriptions: Ondansetron [Zofran Odt] 4 mg PO Q8H PRN PRN #10 tab PRN Reason: Nausea Prescription Printed Referrals: Mega Bloom MD [Primary Care Provider] -
[2019-03-14 16:04] VITALS: BP 201/78
[2019-03-14] MEDS: proMETHazine 25 MG/ML Syringe 12.5 MG IV (16:11)
== END 2019-03-14 17:04 | disposition home or self-care (01) ==
PROVIDERS: Emergency Provider Emergency Medicine; Family Provider Internal Medicine; PCP Internal Medicine
DX: R51 Headache (principal); I10 Essential (primary) hypertension; R11.0 Nausea; R05 Cough; C56.9 Malignant neoplasm of unspecified ovary; Z79.899 Other long term (current) drug therapy
CPT/HCPCS: 36591; 71046; 80048; 85025; 96361; 96374; 96375; 99284; J7030; A4216; J2405

== ENCOUNTER → 2019-04-27 08:15 | Outpatient (CLI) | payer MEDICARE, SELFPAY ==
[2019-04-20 09:00] VITALS: BMI 84.0
--- NOTE | 2019-04-27 12:17 | PFTCOMP ---
COMPLETE PULMONARY FUNCTION TEST INTERPRETATION Brief HPI: Patient is a 78 year old female, currently under the care of Dr. Berg, who presents to [facility] for complete pulmonary function tests secondary to diagnosis of dyspnea. Respiratory therapist reports good effort and reproducible results. Interpretation: Forced expiration spirometry shows no large airways obstructive ventilatory defect with an FEV1 of 62% predicted. There is no significant bronchodilator response by strict ATS criteria. Spirograms are of good quality and plateau slowly, indicating slowly emptying areas of the lungs. The respiratory flow volume loop shows decreased expiratory flow rates at high lung volumes consistent with small airways obstruction. Lung volumes by body plethysmography show a decreased total lung capacity at 3.68 L, 77% predicted. All other lung volumes are within normal limits. Diffusion capacity by carbon monoxide is decreased at 53% predicted. The airway resistance is elevated. No previous pulmonary function tests were available for review. Impression: Mild restrictive ventilatory defect with reduced diffusion capacity that is out of proportion to the restriction.
== END ==
PROVIDERS: Family Provider Internal Medicine; PCP Internal Medicine; Referring Provider Internal Medicine Medical Oncology; Visit Provider Internal Medicine Medical Oncology
DX: J45.909 Unspecified asthma, uncomplicated (principal); R06.02 Shortness of breath; C80.1 Malignant (primary) neoplasm, unspecified; C78.6 Secondary malignant neoplasm of retroperitoneum and peritoneum; C79.60 Secondary malignant neoplasm of unspecified ovary
CPT/HCPCS: 94060; 94726; 94729

== ENCOUNTER → 2019-06-20 | Outpatient (CLI) | payer MEDICARE, SELFPAY ==
[2019-06-15 11:01] VITALS: BMI 38.0
--- NOTE | 2019-06-20 08:13 | CT_ITS ---
HISTORY: Follow up metastatic ovarian cancer, abdomen pain left side, last chemo January 2019, surg-appendectomy, cholecystectomy, Power Port, coronary stents x 2, hysterectomy ADDITIONAL HISTORY: None provided. TECHNIQUE: CT images were obtained of the abdomen and pelvis with 100 ml of Isovue 300 IV contrast. Enteric contrast was given. A radiation dose optimization technique was used for this scan. Number of images including paperwork: [phone] COMPARISON: 06/08/2019. PET CT 02/20/2019 FINDINGS: LOWER THORAX: No consolidation or pleural effusion. LIVER: No concerning focal lesion. GALLBLADDER: Cholecystectomy. BILE DUCTS: No significant biliary dilatation. SPLEEN: Unremarkable. PANCREAS: Stable in appearance with punctate calcification in the pancreatic head. ADRENAL GLANDS: Unremarkable. KIDNEYS/URETERS: Right renal cysts. BOWEL: No bowel obstruction. No significant bowel wall thickening. No localized inflammation. Colonic diverticulosis. APPENDIX: No evidence of appendicitis. FREE FLUID: No significant free fluid. FREE AIR: None. LYMPH NODES: Aortocaval node has increased in size, measuring 8 x 15 mm, previously 5 x 10 mm.. PERITONEUM, RETROPERITONEUM AND MESENTERY: Soft tissue density nodule adjacent to the distal stomach has recurred, measuring 11 mm in diameter on series 2 image 40 VASCULATURE: Atherosclerotic calcification. PELVIS: Unremarkable bladder. Hysterectomy. ABDOMINAL WALL: Small fat-containing wall hernias. Fat and small bowel containing infraumbilical ventral hernias also appears similar without CT evidence of complication. OSSEOUS AND SOFT TISSUE STRUCTURES: No acute skeletal findings. CT/Abdomen/Pelvis WITH Contrast IMPRESSION: Increase in soft tissue and one nodule adjacent to the distal stomach and increase in aortocaval node concerning for recurrent disease. Individualized dose optimization techniques were used for this CT. at 0232 Reported and signed by: Lisa Mathis MD Electronically Signed: Lisa Mathis MD at 2:32 EDT Tel , Service support ,
== END | disposition home or self-care (01) ==
LOC: CT 08:12
PROVIDERS: Family Provider Internal Medicine; PCP Internal Medicine; Referring Provider Internal Medicine Medical Oncology; Visit Provider Internal Medicine Medical Oncology
DX: C56.1 Malignant neoplasm of right ovary (principal); C78.6 Secondary malignant neoplasm of retroperitoneum and peritoneum; R10.9 Unspecified abdominal pain; Z95.5 Presence of coronary angioplasty implant and graft
CPT/HCPCS: 74177; Q9967; A4216

== ENCOUNTER → 2019-09-18 12:46 | Outpatient (CLI) | payer MEDICARE, SELFPAY ==
[2019-09-07 10:29] VITALS: BMI 38.0
--- NOTE | 2019-09-18 12:47 | CT_ITS ---
STUDY: CT ABDOMEN AND PELVIS WITH CONTRAST REASON FOR EXAM: Female, 78 years old. METASTATIC OVARIAN CANCER FOLLOW UP. LAST CHEMO JUL 2019 RADIATION DOSAGE (If Supplied By Facility): CTDIvol = ( 18.58 ) mGy, DLP = ( 1315.43 ) mGycm TECHNIQUE: Transaxial images were obtained from the dome of the diaphragm to the symphysis pubis without oral contrast. Oral and amp; IV Readi-CAT and amp; 100mL Isovue-300 was administered. Sagittal and coronal images were reconstructed. Individualized dose optimization techniques were used for this CT. COMPARISON: Previous study of 06/20/2019 FINDINGS: The visualized lung bases are unremarkable. The heart size is within normal limits. There is no pericardial effusion. Normal liver. There is non-visualization of the gallbladder, which may be secondary to either contraction or a prior cholecystectomy. Normal spleen. Normal pancreas. Normal bilateral adrenal glands. There are several right renal cysts, the larger measuring 3.5 cm and smaller measuring 1.1 cm. Normal left kidney. Normal visualized stomach. There is a heterogeneous mass contiguous with the greater curvature aspect of the distal gastric body measuring 5.3 x 5.0 x 5.7 cm, significantly increased in size from the previous study where it measured approximately 1.0 cm. Normal small intestine. There is mild sigmoid diverticulosis with no evidence of associated diverticulitis. There is non-visualization of the appendix. There are calcified plaques of the abdominal aorta. Normal inferior vena cava. There are scattered shotty retroperitoneal nodes, overall slightly increased in size and number from the previous study. Normal urinary bladder. There is absence of the uterus consistent with a prior hysterectomy. There is a small fat-containing right paraumbilical hernia. There are mild diffuse degenerative changes of the visualized thoracolumbar spine. CT/Abdomen/Pelvis WITH Contrast IMPRESSION: 1. Heterogeneous mass contiguous with the greater curvature aspect of the distal gastric body measuring 5.3 x 5.0 x 5.7 cm, significantly increased in size from the previous study. This is concerning for metastatic disease. 2. Nonvisualization of the gallbladder. 3. Right renal cysts. 4. Scattered shotty retroperitoneal nodes, overall slightly increased in size and number from the previous study. 5. Small fat-containing right periumbilical hernia. 6. Status post hysterectomy. Electronically Signed: Anthony Wick MD at 22:52 EST , Service support ,
[2019-09-18] MEDS: 0.9% Saline Lock 10 ML Syringe IV (13:13)
== END ==
PROVIDERS: PCP Internal Medicine; Referring Provider Internal Medicine Medical Oncology; Visit Provider Internal Medicine Medical Oncology
DX: C56.1 Malignant neoplasm of right ovary (principal); C79.60 Secondary malignant neoplasm of unspecified ovary
CPT/HCPCS: 74177; Q9967; A4216

== ENCOUNTER → 2019-12-05 07:44 | Outpatient (CLI) | payer MEDICARE, SELFPAY ==
[2019-11-30 09:55] VITALS: BMI 38.4
[2019-12-05] VITALS (9 sets, daily range): BP systolic 119–171; BP diastolic 51–66; PULSE 74–84; RESP 16–28; TEMP 37.1; O2SAT 92–99; BMI 37.2
--- NOTE | 2019-12-05 | FLU_PTH ---
PATIENT: ORLIN DUMAS LOC: [place] U#:[id number] AGE/SX: 84/F ROOM: RE12/05/[address]: Dr. Ilan Berg MD : 1940 BED: DIS: SPEC #: [id number] RECD: 12/05/19 12:19 STATUS: WANDY REMiguelangel #: [id number] IVAN: 12/05/19 00:[address]: Ilan Berg DEPT: CYTOLOGY RECD BY: Charles Main ENTERED: 12/05/19 12:20 SP TYPE: Fluid OTHR DR: Dr. Mega Bloom MD Tissues: Abdomen, NOS Procedures: Special Stain Group II Surgery Specimen Level IV Cytospin Fluid HEADER OPERATION: CT-guided abdominal mass PRE-OP DIAGNOSIS: History ovarian CA; abnormal PET TISSUE SUBMITTED: Abdominal mass fluid for cytology DIAGNOSIS CYTOLOGY Abdominal mass fluid for cytology (cytospin, smears and cell block): A few atypical cells suspicious for non-small carcinoma noted. See comment. VANESSA:gretta 12/06/19 COMMENT The specimen is evaluated at the time of FNA by Dr. Maynard. Immediate Evaluation = Mostly inflammatory cells noted. The specimen predominantly consists of fibrinous material mixed with inflammatory cells and degenerated atypical cells. Please make reference to corresponding to surgical specimen [id number] with diagnosis of consistent with metastatic non-small cell carcinoma, compatible with clinical impression of ovarian primary. Case has been reviewed in consultation with Dr. Her who concurs with the above diagnosis. IDC:AM CYTOLOGY STUDY Slides are reviewed. CYTOLOGY GROSS Received is 20 ml of fluid labeled with the patient's name, and designated abdominal mass. Three imprints and two paps are made from the submitted fluid and the rest is added to CytoLyt for cell block preparation. Submitted for cytology study. / VANESSA:gretta 12/05/19 TC:5 CPT: 97130, 54044, 53382, 62015
--- NOTE | 2019-12-05 | IMM_PTH ---
PATIENT: ORLIN DUMAS LOC: CT U#:[id number] AGE/SX: 84/F ROOM: RE12/05/[address]: Dr. Ilan Berg MD : 1940 BED: DIS: SPEC #: [id number] RECD: 12/06/19 11:40 STATUS: WANDY REQ #: [id number] IVAN: 12/05/19 00:[address]: Ilan Berg DEPT: IMMUNOHISTOCHEMISTRY RECD BY: Radha Abad ENTERED: 12/06/19 11:43 SP TYPE: IMMUNO OTHR DR: Dr. Mega Bloom MD Tissues: Abdomen, NOS Procedures: RCC (add) MSH2 (add) MLH-1 (add) MSH6 (add) Anti-PMS2 (add) CA-125 (add) CK20 (add) CK5-6 (add) CK7 (add) CK8 (add) HEP PAR (add) KI-67 (add) P53 (add) DE (add) TTF1 (add) P40 (add) ER (initial) PHYSICIAN & INSTITUTION [address] [address] SPECIMEN INFORMATION: Tissue Source: Abdominal mass, CT-guided biopsy Clinical Info: History ovarian CA; abnormal PET, abdominal mass Specimen Number: [id number] CPT code: 12100, 94801 x16 METHODOLOGY: Deparaffinized sections of prefer/formalin-fixed tissue or PAP/DQ stained slides are incubated with monoclonal/polyclonal antibodies/oligonucleotide probes. Localization is made via biotin free immunoperoxidase method. Appropriate controls are performed and reacted as expected. Results on target cell population are indicated in the following table: RESULTS: ANTIBODY / CLONE RESULT ER (6F11) negative DE (1E2) positive CK7 (OV-TL12/30) negative CK8 (85wbudB36) positive, focal CK20 (KS20.8) negative TTF-1 (8G7G3/1) negative HepPar (OCh1E5) negative RCC (PN-15) negative CK5-6 (D5 & 1684) negative P40 (BC28) negative CA125 (OC125) positive, focal Ki-67 (30-9) positive, high P53 (DO-7) positive MLH-1 (M1) positive MSH2 (25D12) positive MSH6 (44) positive PMS2 (AQC5361) positive These tests were developed and their performance characteristics determined by [facility]. They may not have been cleared or approved by the U.S. Food and Drug Administration. The FDA has determined that such clearance or approval is not necessary. The above immunohistochemical/dualISH markers are ordered and reviewed by the Pathologist. INTERPRETATION: Abdominal mass, CT-guided biopsy: Consistent with metastatic non-small cell carcinoma, compatible with clinical impression of ovarian primary. Result of Microsatellite Instability Study: Negative (no loss of mismatch protein; no microsatellite instability detected). Case has been reviewed in consultation with Dr. Her who concurs with the above diagnosis. IDC:[email or web address] SJ:gretta 12/07/19
--- NOTE | 2019-12-05 | ASPIGT_PTH ---
PATIENT: ORLIN DUMAS LOC: CT U#:[id number] AGE/SX: 84/F ROOM: RE12/05/[address]: Dr. Ilan Berg MD : 1940 BED: DIS: SPEC #: [id number] RECD: 12/05/19 12:19 STATUS: WANDY REQ #: [id number] IVAN: 12/05/19 00:[address]: Ilan Berg DEPT: SURGICAL PATHOLOGY RECD BY: Charles Main ENTERED: 12/05/19 12:19 SP TYPE: ASP RAD OTHR DR: Dr. Mega Bloom MD Tissues: Abdomen, NOS Procedures: FNA Specimen Adequacy Special Stain Group II Surgery Specimen Level IV Imprint (control) HEADER OPERATION: CT-guided abdominal mass PRE-OP DIAGNOSIS: History ovarian CA; abnormal PET, abdominal mass TISSUE SUBMITTED: Abdomen biopsy MICROSCOPIC DIAGNOSIS Abdominal mass, CT-guided core biopsy: Consistent with metastatic non-small cell carcinoma, compatible with clinical impression of ovarian primary. See comment. VANESSA:gretta 12/06/19 COMMENT The specimen is evaluated at the time of core biopsy by Dr. Maynard. Immediate Evaluation = Atypical cells suspicious for malignancy noted. The tumor also show extensive necrosis. Immunohistochemistry ([id number]) supports the above diagnosis. Please refer to immunohistochemistry ([id number]) for mismatch repair of protein study (microsatellite instability). Molecular studies on the tumor are also being performed and the results will be reported as an addendum. Case has been reviewed in consultation with Dr. Her who concurs with the above diagnosis. IDC:AM MICROSCOPIC DESCRIPTION Slides are reviewed. GROSS DESCRIPTION Received in fixative is one container labeled with the patient's name and designated abdominal mass, CT-guided core biopsy. The specimen consists of multiple elongated fragments of son soft tissue that in aggregate measure 1.5 x 0.1 x 0.1 cm. The specimen is totally submitted in one cassette. Two touch imprints are prepared at the time of core biopsy. / VANESSA:gretta 12/05/19 TC:0 CPT: 74550, 77310 ADDENDUM ADDENDUM ADDENDUM ADDENDUM ADDENDUM ADDENDUM ADDENDUM 12/13/2019 09:49 ADDENDUM 12/13/2019 09:49 ADDENDUM 12/13/2019 09:49 ADDENDUM 12/13/2019 09:49 ADDENDUM 12/13/2019 09:49 PD-L1 (KEYTRUDA) IMMUNOHISTOCHEMICAL ANALYSIS FROM [facility] RESULTS: PD-L1 IHC analysis for gastric/GEJ adenocarcinoma Combined Positive Score: <1 (CPS<1 / No PD-L1 Expression) Please see complete report in e-chart or EMR for complete details
--- NOTE | 2019-12-05 07:44 | CT_ITS ---
PROCEDURE: CT GUIDED biopsy of the mid abdominal mass. DATE: December 05, 2019. INDICATION: Female, 79 years old. Abdominal mass. History of ovarian carcinoma. PHYSICIAN: Scott Sexton M.D. RADIATION DOSAGE (If Supplied By Facility): CTDIvol = ( 15 ) mGy, DLP = ( 598.53 ) mGycm PROCEDURE: The risks, benefits, and alternatives to the procedure were explained to the patient. The specific risk of hemorrhage requiring further treatment or intervention was detailed and accepted. Follow-up instructions were discussed with the patient as well. Written informed consent was obtained. The patient was brought into the CT suite and placed in the supine position. . An appropriate entry site was identified. The overlying skin was prepped and draped in the usual sterile fashion. 1% lidocaine was administered subcutaneously for local anesthesia. Conscious sedation was performed. The patient received 2 mg of Versed and 50 mcg of fentanyl intravenously. The patient was independently monitored by the department nurse. Conscious sedation was started 9:34 AM and terminated at 10:[address] guidance, a total of 6 passes were performed utilizing a 18-gauge core biopsy needle. The specimens were then placed in appropriate fluid in transported to the laboratory for analysis. Hemostasis was obtained. The patient tolerated the procedure well without immediate complications. CT/Biopsy/Inj or Needle Placement IMPRESSION: Successful CT guided biopsy of the right mid abdominal mass, as described above. Electronically Signed: Scott Sexton, at 10:38 EDT , Service support ,
[2019-12-05] MEDS: 0.9% Saline Lock 10 ML Syringe IV ×3 (08:15→11:15)
[2019-12-05 08:29] LABS: Hemoglobin 11.2 g/dL (12.0-15.0); Mean Corp Hgb Conc 32.9 g/dL (32-36); Mean Corpuscular Volume 94.2 fL (81-99); Mean Platelet Vol. 11.4 fl (6.2-12.0); POSITIVE COUNT YES; POSITIVE MORPHOLOGY YES; Platelet Count 92 K/mm3 (150-450); RBC Distribution Width CV 17.6 % (11.6-14.6); RBC Distribution Width SD 60.9 fl (35.1-43.9); Red Blood Count 3.61 M/mm3 (4.2-5.4); White Blood Count 5.2 K/mm3 (4.4-11.0)
[2019-12-05 08:41] LABS: Differential Indicated MANUAL DIFF; International Normalized Ratio 1.2; Prothrombin Time (Protime)PT. 14.2 SECONDS (11.7-14.9)
[2019-12-05 08:58] LABS: Basophil 1 % (0-1); Eosinophil 2 % (0-5); Lymphocyte 21 % (19-41); Metamyelocyte 1 % (0-1); Monocyte 5 % (0-10); Neutrophil-Band 11 % (0-5); Neutrophil-Segmented 59 % (47-70); Total Cells Counted 100 (MANUAL DIFF)
[2019-12-05 09:01] LABS: Platelet Estimate MOD DEC (ADEQ); Reactive Lymphocyte 1+; Red Cell Morphology NORM C+C NORMAL (NORM C&C)
[2019-12-05 09:02] LABS: Absolute Lymphocyte Count 1.09 X10^3/uL (0.83-4.51); Absolute Neutrophil Count 3.6 X10^3/uL (2.0-7.7)
[2019-12-05] MEDS: Midazolam 2 MG/2 ML Syringe IV (09:34)
[2019-12-05] MEDS: fentaNYL 100 MCG/2 ML Ampul IV (09:40)
[2019-12-05 11:47] LABS: Pathologist Review Reviewed
== END ==
PROVIDERS: PCP Internal Medicine; Referring Provider Internal Medicine Medical Oncology; Visit Provider Internal Medicine Medical Oncology
DX: R19.02 Left upper quadrant abdominal swelling, mass and lump (principal); C78.6 Secondary malignant neoplasm of retroperitoneum and peritoneum; C80.1 Malignant (primary) neoplasm, unspecified; C79.60 Secondary malignant neoplasm of unspecified ovary
CPT/HCPCS: 49180; 77012; 85025; 85610; 85730; 88108; 88172; 88305; 88313; 88341; 88342; 99156; 99157; J7040; A4216

== ENCOUNTER → 2020-01-08 13:09 | Outpatient (CLI) | payer MEDICARE, SELFPAY ==
[2019-12-21 09:37] VITALS: BMI 38.4
[2020-01-04 10:42] VITALS: BMI 38.9
--- NOTE | 2020-01-08 13:13 | CT_ITS ---
STUDY: CT ABDOMEN AND PELVIS WITH CONTRAST REASON FOR EXAM: Female, 79 years old. OVARIAN CA-CHEMO CHECK, METS TO ABD/PELVIS, SWELLING TO BILAT FEET, DIFF BREATHING X 2 DAYS, HTN, CORONARY STENTS, SURG-appendectomy, cholecystectomy, Power Port, coronary stents x 2, hysterectomy RADIATION DOSAGE (If Supplied By Facility): CTDIvol = ( 17.31 ) mGy, DLP = ( 1741.45 ) mGycm TECHNIQUE: Transaxial images were obtained from the dome of the diaphragm to the symphysis pubis with oral contrast. Oral and amp; IV Readi-CAT and amp; 100mL Isovue-300 was administered. Sagittal and coronal images were reconstructed. Individualized dose optimization techniques were used for this CT. COMPARISON: CT abdomen and pelvis February 17, 2020; PET/CT November 13, 2019. FINDINGS: Small dependent bilateral pleural effusions are now present, larger on the right there is minimal volume loss in the adjacent lung bases. Heart size within normal limits. There are atherosclerotic calcifications in the coronary arteries and distal descending thoracic aorta. Normal liver. Patent portal vein diameter is 13.5 mm. There is non-visualization of the gallbladder, which may be secondary to either contraction or a prior cholecystectomy. The diameter of the common bile duct to 6 mm. Normal spleen. Normal pancreas. Normal bilateral adrenal glands. There is a stable 3.5 x 3.6 x 4.0 cm mildly exophytic subcapsular cortical cyst at the medial lower pole of the right kidney. Inferior and posterior to this is a stable second 1.35 cm cortical cyst, and there is a stable 8.5 mm exophytic subcapsular cortical cyst at the medial upper pole. Normal left kidney. No hydronephrosis. Previously noted mid abdominal mass, slightly right of midline, which was the site of biopsy December 05, 2019, has notably increased in size, now measuring 16 x 11.4 x 13.4 cm. This shows a degree of rim enhancement and/or an element of central necrosis. Normal visualized stomach. Normal small intestine. Normal colon. There is non-visualization of the appendix. There is small volume ascites. There is stable moderately diffuse atherosclerotic calcification of the abdominal aorta and proximal iliac arteries, without a demonstrated aneurysm. Normal inferior vena cava. A pair of mildly enlarged lymph nodes in posterior and inferior vena cava and portal vein are borderline increased in size. The more superior and medial is 1.85 x 1 x 0.5 cm, while the adjacent more lateral and inferior node is 1.05 x 2.3 x 0.6 cm. These do not show significant radiotracer uptake on the PET scan. There is worsening periaortic retroperitoneal adenopathy. A density just below the left renal vessels that may be one or more inseparable nodes is 3.9 x 2.1 x 1.5 cm. Just inferior to this is a 3.0 x 1.85 X 1.55 cm left periaortic lymph node. Anterior to the iliocaval confluence is a 4.2 x 2.4 x 1.2 cm mass of confluent nodes. Empty urinary bladder. There is absence of the uterus consistent with a prior hysterectomy. There is a stable healed midline incision of the anterior abdominal wall. There is a stable small hernia containing fat and fluid extending inferiorly just right of midline from the level of the umbilicus. Also again seen is a midline small anterior hernia of the lower abdominal wall, which now contains fluid. There is a small left-sided inguinal hernia containing adipose tissue. There are stable mild multilevel degenerative changes of the visualized lumbar spine, as well as stable near bridging anterior endplate osteophytes at multiple thoracic levels. Small, benign-appearing, mildly irregular sclerotic density noted in the intertrochanteric region of the proximal right femur. CT/Abdomen/Pelvis WITH Contrast IMPRESSION: 1. Notable progression of disease, with previously biopsied abdominal mass in the medial right upper quadrant now measuring 16 cm in diameter, worsened periaortic retroperitoneal adenopathy, small volume ascites, and small bilateral pleural effusions. 2. Atherosclerotic calcifications in the coronary arteries, thoracoabdominal aorta, and proximal iliac arteries again noted. No demonstrated aortic aneurysm. 3. No sign of bowel obstruction. 4. Prior hysterectomy. 5. Stable right renal cortical cysts, as described. No hydronephrosis. 6. Gallbladder not visualized. No bile duct dilatation. 7. Healed midline incision in the anterior abdominal wall as well as 2 small infraumbilical hernias again noted. Electronically Signed: Ildefonso Elkins MD at 14:24 EDT , Service support ,
--- NOTE | 2020-01-08 13:13 | CT_ITS ---
STUDY: CT CHEST/THORAX WITH CONTRAST REASON FOR EXAM: Female, 79 years old. OVARIAN CA-CHEMO CHECK, METS TO ABD/PELVIS, SWELLING TO BILAT FEET, DIFF BREATHING X 2 DAYS, HTN, CORONARY STENTS, SURG-appendectomy, cholecystectomy, Power Port, coronary stents x 2, hysterectomy RADIATION DOSAGE (If Supplied By Facility): CTDIvol = ( 17.31 ) mGy, DLP = ( 1741.45 ) mGycm TECHNIQUE: Transaxial imaging was performed following intravenous administration of Oral and amp; IV Readi-CAT and amp; 100mL Isovue-300. Multiplanar coronal and sagittal images were reformatted. Individualized dose optimization techniques were used for this CT. COMPARISON: PA and lateral chest x-ray March 14, 2019; PET/CT November 13, 2019. FINDINGS: The hub of a Port-A-Cath device is again seen in the infraclavicular subcutaneous tissues of the upper right anterior chest wall. Catheter loops over the base of the neck, its tip in the right atrium. Stable 8 x 3.5 x 9 mm low-density lesion in the left lobe of the thyroid gland, as well as a 6 mm subcapsular low-density in the anterior right lobe. Mild elevation of the right diaphragm. There are small dependent bilateral pleural effusions, larger on the right. There is minimal volume loss in the posterior lung bases. Grossly stable 3 mm nodule in the posterolateral periphery of the right upper lobe on series 6 image 19, series 601 image 160. 2 mm nodule in the lateral right upper lobe on series 6 image 26, series 6 on image 125 is more clearly seen today. Well-defined 7.5 x 5 x 6.5 mm nodule in the anteromedial right upper lobe (series 6 image 30, series 601 image 86) is stable. 5.5 mm nodule in the superior right middle lobe near the minor fissure on series 6 image 52, series 6 on image 99 is borderline decreased in size. Minimal thickening in the lateral minor fissure (series 6 image 52, series 601 image 82) is more conspicuous today. There is no demonstrated pleural abnormality. Normal heart size and pericardium. There are calcifications of the coronary arteries. There is a grossly stable posterior mediastinal lymph node in the mid chest, interposed between the descending thoracic aorta and azygos vein, measuring 2.2 x 1.2 x 0.9 cm that showed abnormal uptake on PET scan. Inferior to this is a less clearly defined 2.2 x 1.3 x 0.7 cm soft tissue density that may be a second enlarged node. Normal hilar regions. Normal enhanced pulmonary arteries. There is mild atherosclerotic calcification of the aortic arch and descending thoracic aorta. There are multi-level spondylotic degenerative changes of the thoracic spine. There are benign appearing, well-corticated subarticular cystic degenerative changes in the inferior aspect of the left glenoid and head of the left humerus There are stable upper normal size to borderline enlarged medial left periclavicular lymph nodes that showed abnormal uptake on PET scan. The larger, more inferolateral, (series 2 images 12-13, series 601 image 112) is 1.65 x 1.4 x 1.55 cm. The more medial node is 1.25 x 1.0 x 1.3 cm. There is small volume ascites in the upper abdomen. CT/Chest WITH Contrast IMPRESSION: 1. Small dependent bilateral pleural effusions now present, larger on the right. Small volume ascites also now seen in the upper abdomen. 2. Stable medial left periclavicular adenopathy, while posterior mediastinal adenopathy at the mid chest is borderline worsened. 3. Stable subcentimeter nodular densities in the right upper and middle lobes, as described. No new suspicious pulmonary infiltrate. 4. Right anterior chest wall Port-A-Cath device again seen. 5. Stable small low-density lesions in the thyroid gland, as described. If clinically indicated, these can be further characterized with ultrasound. 6. Atherosclerotic vascular calcifications present. No demonstrated aortic aneurysm. Electronically Signed: Ildefonso Elkins MD at 14:43 EDT , Service support ,
[2020-01-08] MEDS: 0.9% Saline Lock 10 ML Syringe IV (13:52)
== END ==
PROVIDERS: PCP Internal Medicine; Referring Provider Internal Medicine Medical Oncology; Visit Provider Internal Medicine Medical Oncology
DX: C78.6 Secondary malignant neoplasm of retroperitoneum and peritoneum (principal); C79.60 Secondary malignant neoplasm of unspecified ovary; C80.1 Malignant (primary) neoplasm, unspecified
CPT/HCPCS: 71260; 74177; Q9967; A4216

== ENCOUNTER → 2020-03-07 13:36 | Outpatient (CLI) | payer MEDICARE, SELFPAY ==
[2020-02-20 09:33] VITALS: BMI 34.0
[2020-02-27 10:02] VITALS: BMI 34.8
--- NOTE | 2020-03-07 13:40 | CT_ITS ---
STUDY: CT ABDOMEN AND PELVIS WITHOUT CONTRAST REASON FOR EXAM: Female, 79 years old. MONITORING OVARIAN CA, HX OF appendectomy, cholecystectomy, Power Port, coronary stents x 2, hysterectomy RADIATION DOSAGE (If Supplied By Facility): CTDIvol = ( 19.29 ) mGy, DLP = ( 1021.71 ) mGycm TECHNIQUE: Transaxial images were obtained from the dome of the diaphragm to the symphysis pubis with oral contrast, and without intravenous contrast. Sagittal and coronal images were reconstructed. Individualized dose optimization techniques were used for this CT. COMPARISON: Comparison is made with prior study dated January 08, 2020. FINDINGS: Small left pleural effusion with some bibasilar atelectasis. The visualized portions of the heart are within normal limits. Perihepatic fluid. There is a 14.2 cm x 10.7 cm by 11 cm necrotic mass arising from the anterior midportion of the medial aspect of the right lobe of the liver. This extends into the mid abdomen with compression of the distal stomach. This is essentially unchanged. The patient is status post cholecystectomy. Normal spleen. Normal pancreas. Normal bilateral adrenal glands. Stable 3.5 cm x 3.6 cm cyst in the medial midportion of the right kidney. Normal left kidney. Normal visualized stomach. Normal small intestine. Normal colon. The patient is status post appendectomy. There is diffuse atherosclerotic calcification of the abdominal aorta, without a demonstrated aneurysm. Normal inferior vena cava. There is retroperitoneal lymphadenopathy with enlarged nodes greater than 10-15mm in the short axis. Normal urinary bladder. Pelvic fluid. The patient is status post hysterectomy. Normal abdominal wall. There are diffuse degenerative changes of the visualized lumbar spine. CT/Abdomen/Pel W ORAL Cont Only IMPRESSION: Essentially stable necrotic mass in the right upper quadrant extending into the abdomen. This involves the medial aspect of the right lobe of the liver. This is essentially unchanged. Ascites. Retroperitoneal lymph nodes. Electronically Signed: Scott Sexton, at 15:05 EDT , Service support ,
== END ==
PROVIDERS: PCP Internal Medicine; Referring Provider Internal Medicine Medical Oncology; Visit Provider Internal Medicine Medical Oncology
DX: C78.6 Secondary malignant neoplasm of retroperitoneum and peritoneum (principal); C79.60 Secondary malignant neoplasm of unspecified ovary; C80.1 Malignant (primary) neoplasm, unspecified
CPT/HCPCS: 74176

== ENCOUNTER → 2020-03-12 11:17 | Outpatient (CLI) | payer MEDICARE, SELFPAY ==
[2020-03-12 10:30] VITALS: BMI 35.9
--- NOTE | 2020-03-12 11:19 | VDLE_ITS ---
Reason For Study: Swelling RIGHT LEFT GSV is normal. GSV is normal. CFV is compressible, spontaneous, phasic, CFV is compressible, spontaneous, phasic, competent and demonstrates normal competent, and demonstrates normal augmentation. augmentation. FV is compressible, spontaneous, phasic, FV is compressible, spontaneous, phasic, competent and demonstrates normal competent and demonstrates normal augmentation. augmentation. POP V is compressible, spontaneous, phasic, POP V is compressible, spontaneous, phasic, competent and demonstrates normal competent and demonstrates normal augmentation. augmentation. Acute deep vein thrombosis is noted in the T/P Trunk is compressible. right distal T/P Trunk, Peroneal vein and PTV is compressible. Soleus vein. LT PerV is compressible. PTV is compressible. Procedure Exam performed in department. A preliminary report was called and/or faxed to [facility]. Interpretation Summary Acute deep venous thrombosis right distal tibioperoneal trunk, peroneal, and soleus veins. No evidence for acute deep venous thrombosis left lower extremity Patent and compressible bilateral great saphenous veins Ordering Physician: Ilan Berg Referring Physician: Mega Bloom Performed By: Bharati Moyer RVT and Student
== END ==
PROVIDERS: PCP Internal Medicine; Referring Provider Internal Medicine Medical Oncology; Visit Provider Internal Medicine Medical Oncology
DX: I82.441 Acute embolism and thrombosis of right tibial vein (principal); I82.451 Acute embolism and thrombosis of right peroneal vein; I82.461 Acute embolism and thrombosis of right calf muscular vein; C56.9 Malignant neoplasm of unspecified ovary
CPT/HCPCS: 80053; 83615; 83735; 85025; 86304; 93970; A4216

== ENCOUNTER → 2020-03-29 14:18 | Outpatient (CLI) | payer MEDICARE, SELFPAY ==
[2020-03-19 12:58] VITALS: BMI 36.3
[2020-03-25 10:56] VITALS: BMI 36.3
--- NOTE | 2020-03-29 14:20 | CT_ITS ---
STUDY: CT CHEST WITHOUT CONTRAST REASON FOR EXAM: Female, 79 years old. Hx of ovarian cancer with chemo. Fluid in lungs. Pt. To begin radiation treatments Wednesday. RADIATION DOSAGE (If Supplied By Facility): CTDIvol = ( 15.04 ) mGy, DLP = ( 499.79 ) mGycm TECHNIQUE: Transaxial imaging was performed without the administration of intravenous contrast material. Individualized dose optimization techniques were used for this CT. COMPARISON: Comparison is made with prior study dated 01/08/2020. FINDINGS: A right-sided portacatheter is seen with the tip in the superior vena cava. Since prior examination, the right pleural effusion has resolved. The left pleural effusion has increased in size. Mild left basilar atelectasis. Stable subcentimeter nodular densities in the right upper and right middle lobes. There are calcifications of the coronary arteries. Normal mediastinum. Normal hilar regions. Normal unenhanced pulmonary arteries. There is atherosclerotic calcification of the aortic arch . There are degenerative changes of the thoracic spine. Ascites. There is 11.4 cm x 12.3 cm predominantly cystic/complex mass arising from the anterior aspect of the medial portion of the right lobe of the liver. There is also evidence of a 2.2 cm x 1.6 cm hypodense nodule in the inferior lateral portion of the right lobe. There is also evidence of a 1.1 cm hypodense nodule in the posterior aspect of the right lobe of the liver in the region of the dome. Metastatic disease should be ruled out. CT/Chest without Contrast IMPRESSION: Interval increase in size in the left pleural effusion with underlying left basilar atelectasis. Ascites. Prominent masses in the liver as described. Electronically Signed: Scott Sexton, at 14:58 EDT , Service support ,
== END ==
PROVIDERS: PCP Internal Medicine; Referring Provider Nurse Practitioner Family; Visit Provider Nurse Practitioner Family
DX: R06.02 Shortness of breath (principal); C56.9 Malignant neoplasm of unspecified ovary
CPT/HCPCS: 71250